=== PATIENT | male | born 1950 | race Caucasian/White ===

== ENCOUNTER 2019-11-26 00:58 | Inpatient (IN) | payer OTHER, BC ==
--- OUTSIDE RECORDS SUMMARY | 2019-11-26 01:01 | XMS REPORT | Continuity of Care Document ---
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, systemic arterial (disorder) Renal mass Active Problem 02/02/2017 [facility] (finding) Myocardial Resolved Problem 02/02/2017 [facility] infarction (disorder) 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 (Same as: Tylenol Extra Strength) heparin Notes: porcine Inactive heparin 2016 24 HR Metoprolol Notes: (Same Inactive H Tartrate 50 MG as: Toprol XL) 2016 [place] Extended Release May split Tablet [Toprol] tab, but do not crush. Lisinopril Notes: (Same Inactive as: Prinivil, 2016 Zestril) Hydroxychloroquine Notes: (Same Inactive Sulfate 200 MG as: Plaquenil) 2016 [place] Oral Tablet Hydroxychloroq uine sulfate 200 mg = 155 mg hydroxychloroq uine base. If treating malaria, verify dose as salt vs. base per CDC guideline atorvastatin Notes: (Same Inactive as: Lipitor) 2016 aspirin 81 mg Notes: Do not Inactive tablet, enteric crush or chew. 2017 [place] coated (Same As: Ecotrin) sennosides, SKILLED NURSING Notes: (Same Inactive as: Senokot) 2016 [facility] Prednisone Notes: Take Inactive with food. 2016 [facility] tamsulosin Notes: (Same Inactive As: Flomax) 2016 [facility] "Do Not Crush" Cefazolin Notes: Same Inactive as: Ancef 2016 [facility] Albuterol 0.83 2.49 mg, Inactive MG/ML Inhalant Route: NEB, 2017 [place] Solution Q20Min, Dosing Weight 106.165, kg, PRN Wheezing, Priority: STAT, Start date: 01/29/17 21:17:00 CDT, Duration: 30 day, Stop date: 02/28/17 21:16:00 CDT Diphenhydramine 12.5 mg, Inactive Route: IVP, 2016 [facility] Drug form: INJ, Q6H, Dosing Weight 106.165, kg, PRN Itching, Start date: 01/29/17 21:17:00 CDT, Duration: 30 day, Stop date: 02/28/17 21:16:00 CDT Naloxone 0.4 mg, Route: Inactive IVP, Q2MIN, 2016 [facility] Dosing Weight 106.165, kg, PRN Narcotic Reversal, Start date: 01/29/17 21:17:00 CDT, Duration: 8 doses or times, Stop date: Limited # of times Meperidine 12.5 mg, Inactive Route: IVP, 2016 [facility] Q30Min, Dosing Weight 106.165, kg, PRN Other -See Comment, For shivering, Start date: 01/29/17 21:17:00 CDT, Duration: 2 doses or times, Stop date: Limited # of times Ondansetron 4 mg, Route: Inactive IVP, ONCE, 2016 [facility] Dosing Weight 106.165, kg, PRN Nausea & Vomiting, Start date: 01/29/17 21:17:00 CDT Promethazine 6.25 mg, Inactive Route: IVPB, 2016 [facility] ONCE, Dosing Weight 106.165, kg, PRN Nausea & Vomiting, Start date: 01/29/17 21:17:00 CDT Flumazenil 0.2 mg, Route: Inactive IVP, PRN, 2016 [facility] Dosing Weight 106.165, kg, PRN Benzodiazepine Reversal, Initial dose, Start date: 01/29/17 21:17:00 CDT, Duration: 30 day, Stop date: 02/28/17 21:16:00 CDT Hydromorphone 0.5 mg, Route: Inactive 01/30[facility] IVP, Q5Min, 2016 [facility] Dosing Weight 106.165, kg, PRN Pain Score 7-10, Start date: 01/29/17 21:17:00 CDT, Duration: 4 doses or times, Stop date: Limited # of times Oxycodone 5 mg, Route: Inactive 01/30[facility] PO, Drug form: 2016 [facility] TAB, Q4H, Dosing Weight 106.165, kg, PRN Pain Score 4-6, Start date: 01/29/17 21:17:00 CDT, Duration: 30 day, Stop date: 02/28/17 21:16:00 CDT Acetaminophen 1,000 mg, Inactive Route: PO, 2016 [facility] Drug form: TAB, ONCE, Dosing Weight 106.165, kg, PRN Pain Score 1-3, Start date: 01/29/17 21:17:00 CDT, Duration: 1 doses or times, Stop date: Limited # of times esmolol 10 mg, Route: Inactive 01/30[facility] IVP, Q5Min, 2016 [facility] Dosing Weight 106.165, kg, PRN Other -See Comment, Start date: 01/29/17 21:17:00 CDT, Duration: 5 doses or times, Stop date: Limited # of times Labetalol 10 mg, Route: Inactive IVP, Q5Min, 2016 [facility] Dosing Weight 106.165, kg, PRN Elevated BP, Start date: 01/29/17 21:17:00 CDT, Duration: 5 doses or times, Stop date: Limited # of times Hydralazine 10 mg, Route: Inactive 01/30[facility] IVP, Q20Min, 2016 [facility] Dosing Weight 106.165, kg, PRN Elevated BP, Start date: 01/29/17 21:17:00 CDT, Duration: 2 doses or times, Stop date: Limited # of times Calcium Chloride 1,000 mL, Inactive 0.0014 MEQ/ML / Rate: 125 [address] [place] Potassium Chloride ml/hr, Infuse 0.004 MEQ/ML / over: 8 hr, Sodium Chloride Route: IV, 0.103 MEQ/ML / Dosing Weight Sodium Lactate 106.165 kg, 0.028 MEQ/ML Total Volume: Injectable 1,000, Start Solution date: 01/29/17 21:17:00 CDT, Duration: 30 day, Stop date: 02/28/17 21:16:00 CDT hydromorphone Route: IV, Inactive (ANES) Drug form: 2016 [facility] INJ, ONCE, Stop date: 01/29/17 21:06:00 CDT neostigmine (ANES) Route: IV, Inactive 01/30/ M H Drug form: 2016 [facility] INJ, ONCE, Stop date: 01/29/17 21:06:00 CDT glycopyrrolate Route: IV, Inactive (ANES) Drug form: 2016 [facility] INJ, ONCE, Stop date: 01/29/17 21:06:00 CDT ondansetron (ANES) Route: IV, Inactive 01/30/ M H Drug form: 2016 [facility] INJ, ONCE, Stop date: 01/29/17 20:59:00 CDT ceFAZolin (ANES) Route: IV, Inactive Drug form: 2016 [facility] INJ, ONCE, Stop date: 01/29/17 20:44:00 CDT mannitol 25% Route: IV, Inactive intravenous Drug form: 2016 [facility] solution (ANES) INJ, ONCE, Stop date: 01/29/17 19:54:00 CDT phenylephrine Route: IV, Inactive (ANES) Drug form: 2016 [facility] INJ, ONCE, Stop date: 01/29/17 19:03:00 CDT Hextend (ANES) Route: IV, Inactive (ANES) Drug Form: 2016 [facility] INJ, Start date: 01/29/17 18:46:00 CDT, Stop date: 01/29/17 19:46:00 CDT ceFAZolin (ANES) Route: IV, Inactive (ANES) Drug form: 2016 [facility] INJ, Start date: 01/29/17 17:14:00 CDT, Stop date: 01/29/17 18:14:00 CDT Docusate Notes: (Same No Longer as: Colace) Active 2016 [facility] (Do Not Crush) rocuronium (ANES) Route: IV, Inactive Drug form: 2016 [facility] INJ, ONCE, Stop date: 01/29/17 16:53:00 CDT fentaNYL (ANES) Route: IV, Inactive Drug form: 2016 [facility] INJ, ONCE, Stop date: 01/29/17 16:33:00 CDT ceFAZolin (ANES) Route: IV, Inactive Drug form: 2016 [facility] INJ, ONCE, Stop date: 01/29/17 15:23:00 CDT acetaminophen Route: IV, Inactive (ANES) (ANES) Drug form: 2016 [facility] INJ, Start date: 01/29/17 15:22:00 CDT, Stop date: 01/29/17 16:22:00 CDT propofol (ANES) Route: IV, Inactive Drug form: 2016 [facility] INJ, ONCE, Stop date: 01/29/17 15:07:00 CDT lidocaine (ANES) Route: IV, Inactive Drug form: 2016 [facility] INJ, ONCE, Stop date: 01/29/17 15:07:00 CDT fentaNYL (ANES) Route: IV, Inactive Drug form: 2016 [facility] INJ, ONCE, Stop date: 01/29/17 15:07:00 CDT rocuronium (ANES) Route: IV, Inactive Drug form: 2016 [facility] INJ, ONCE, Stop date: 01/29/17 15:07:00 CDT midazolam (ANES) Route: IV, Inactive Drug form: 2016 [facility] SOLN, ONCE, Stop date: 01/29/17 14:47:00 CDT sodium chloride Route: IV, Inactive 0.9% 1000 ml INJ Total Volume: 2016 [place] (ANES) 1,000, Start date: 01/29/17 14:01:00 CDT, Stop date: 01/29/17 15:01:00 CDT LR 1000 mL INJ Route: IV, Inactive (ANES) Total Volume: 2016 [facility] 1,000, Start date: 01/29/17 13:53:00 CDT, Stop date: 01/29/17 14:53:00 CDT gabapentin 300 MG Notes: (Same No Longer Oral Capsule as: Neurontin) Active 2016 [place] Acetaminophen 10 Notes: Infuse No Longer MG/ML Injectable over 15 Active [address] [facility] [address] Solution minutes Do not exceed 4gm/day of acetaminophen MEDICATION WASTE Product Size: 1000 mg Product Wasted: ___ mg Insulin regular 6 unit, Route: Inactive IV, ONCE, 2016 [facility] Dosing Weight 106.165, kg, Start date: 01/29/17 11:51:00 CDT, Stop date: 01/29/17 11:51:00 CDT Insulin, Aspart, Notes: Roll in No Longer Human palms of hands Active 2016 [facility] gently; Do not shake vigorously. (Same as: NovoLOG) "single patient use only" WASTE: F/P - Black; E - Municipal Trash Bin Stable for 28 days at room temperature. Expires in days from Date Dextrose 50% 12.5 gm, 25 No Longer Syringe mL, Route: Active 2016 [facility] IVP, Drug Form: INJ, Dosing Weight 106.165, kg, PRN, PRN Blood Glucose Results, Start date: 01/29/17 11:43:00 CDT, Duration: 30 day, Stop date: 02/28/17 11:42:00 CDT Glucagon 1 mg, Route: No Longer IM, Drug form: Active 2016 [facility] PDR/INJ, PRN, Dosing Weight 106.165, kg, PRN Blood Glucose Results, Start date: 01/29/17 11:43:00 CDT, Duration: 30 day, Stop date: 02/28/17 11:42:00 CDT Hydralazine Notes: (Same No Longer as: Active 2016 [facility] Apresoline) Push over 5 minutes D5NS 1,000 mL 1,000 mL, No Longer Rate: 100 Active 2016 [facility] ml/hr, Infuse over: 10 hr, Route: IV, Dosing Weight 106.165 kg, Total Volume: 1,000, Start date: 01/29/17 11:39:00 CDT, Duration: 30 day, Stop date: 02/28/17 11:38:00 CDT Ondansetron Notes: (Same No Longer as: Zofran) Active 2016 [facility] MEDICATION WASTE Product Size: 4 mg Product Wasted: ___ mg tramadol Notes: Not to No Longer hydrochloride 50 exceed Active [facility] Oral Tablet 400mg/day. (Same As: Ultram) Dilaudid 0.5 mg, 0.5 No Longer mL, Route: Active 2016 [facility] IVP, Drug form: INJ, Q4H, Dosing Weight 106.165, kg, PRN Pain Score 7-10, Start date: 01/29/17 11:39:00 CDT, Duration: 30 day, Stop date: 02/28/17 11:38:00 CDT Dilaudid 0.5 mg, Route: Inactive IVP, Q4H, 2016 Dosing Weight 106.165, kg, PRN Pain Score 7-10, Start date: 01/29/17 11:38:00 CDT, Duration: 30 day, Stop date: 02/28/17 11:37:00 CDT Albuterol 0.833 3 mL, Route: Inactive MG/ML / NEB, Dosing 2016 [facility] Ipratropium Weight [place] 0.167 106.165, kg, MG/ML Inhalant ONCE, STAT, Solution Start date: 01/29/17 11:22:00 CDT, Stop date: 01/29/17 11:22:00 CDT Calcium Chloride 1,000 mL, Inactive 0.0014 MEQ/ML / Rate: [address] Potassium Chloride ml/hr, Infuse 0.004 MEQ/ML / over: 40 hr, Sodium Chloride Route: IV, 0.103 MEQ/ML / Dosing Weight Sodium Lactate 106.165 kg, 0.028 MEQ/ML Total Volume: Injectable 1,000, Start Solution date: 01/29/17 11:22:00 CDT, Duration: 30 day, Stop date: 02/28/17 11:21:00 CDT Mannitol Notes: (Same No Longer as: Osmitrol) Active 2016 [facility] Infuse through 5 micron or smaller filter WASTE: F/P - Sink; E - Municipal Trash Bin aspirin 81 mg 81 mg = 1 tab, Active tablet, enteric PO, Daily, # 2017 [facility] coated 90 tab, 3 Refill(s) tamsulosin 0.4 mg 0.4 mg = 1 Active oral capsule cap, PO, 2016 Daily, 0 Refill(s) Vitamin B Complex 1 tab, PO, Active oral tablet Daily, 0 2017 Refill(s) Vitamin D2 See Active Instructions, 2017 [facility] PO, 0 Refill(s) gabapentin 300 MG 300 mg = 1 Active Oral Capsule cap, PO, TID, 2017 [facility] 0 Refill(s) predniSONE 2.5 mg 2.5 mg = 1 Active oral tablet tab, PO, 2017 Daily, 0 Refill(s) NovoLIN 70/30 See Active Instructions, 2016 SUB-Q, 0 Refill(s) atorvastatin 80 mg 80 mg = 1 tab, Active oral tablet PO, Daily, [address] [facility] [address] Refill(s) canagliflozin 150 See Active MG / Metformin Instructions, 2017 [facility] hydrochloride 1000 1 tab PO, 0 MG Oral Tablet Refill(s) [Invokamet] metoprolol 50 mg 50 mg = 1 tab, Active oral tablet, PO, Daily, # 2017 [facility] ast extended release 30 tab, 0 Refill(s) Hydroxychloroquine 200 mg = 1 Active Sulfate 200 MG tab, PO, 2017 [facility] t Oral Tablet Daily, 0 Refill(s) clopidogrel 75 mg 75 mg = 1 tab, Active oral tablet PO, Daily, # [address] [facility] tab, 0 Refill(s) lisinopril 40 mg 40 mg = 1 tab, Active oral tablet PO, Daily, # [address] 30 tab, 0 Refill(s) Allergies, Adverse Reactions, Alerts Substance Category Reaction Severity Reaction Status Date Comments S ource type Reported penicillins Assertion Drug Active allergy [facility] t Immunizations No Data Provided for This Section Results Order Name Results Value Reference Date Interpretation Comments [facility] rce Range ELECTROLYT AGAP 11.6 10.0 - 01/30 ES 20.0 [facility] ELECTROLYT eGFR 51 01/30 Result Comment: The [facility] eGFR is calculated using the CKD-EPI formula. In most young, healthy individuals the eGFR will be >90 mL/min/1.73m2 . The eGFR declines with age. An eGFR of 60-89 may be normal in some populations, particularly the elderly, for whom the CKD-EPI formula has not been extensively validated. Use of the eGFR is not recommended in the following populations:< br/>
Maria Ines viduals with unstable creatinine concentration s, including patients and those with serious co-morbid conditions.<b r/>
Patie nts with extremes in muscle mass or diet.

The data above are obtained from the National Kidney Disease Education Program (NKDEP) which additionally recommends that when the eGFR is used in patients with extremes of body mass index for purposes of drug dosing, the eGFR should be multiplied by the estimated BMI. ELECTROLYT CO2 26 24 - 32 01/30 [facility] ELECTROLYT Calcium Lvl 7.9 8.5 - 10.5 01/30 [facility] ELECTROLYT Glucose Lvl 235 70 - 99 01/30 [facility] ELECTROLYT Sodium Lvl 139 135 - 145 01/30 [facility] ELECTROLYT Potassium 4.6 3.5 - 5.1 01/30 ES Lvl /2016 [facility] ELECTROLYT BUN 26 7 - 22 01/30 [facility] ELECTROLYT Creatinine 1.40 0.50 - 01/30 ES Lvl 1.40 [facility] ELECTROLYT Chloride Lvl 106 95 - 109 01/30 [facility] HEMATOLOGY Monocytes # 0.5 0.0 - 0.8 01/30 [facility] HEMATOLOGY Basophils 0.5 0.0 - 1.0 01/30 [facility] HEMATOLOGY Lymphocytes 0.6 1.0 - 5.5 01/30 MH # /2017 [facility] HEMATOLOGY Segs-Bands # 4.9 1.5 - 8.1 01/30 /2016 [facility] HEMATOLOGY Monocytes 8.5 2.0 - 12.0 01/30 /2016 [facility] HEMATOLOGY Lymphocytes 9.4 20.0 - 01/30 MH 40.0 /2016 [facility] HEMATOLOGY Segs 81.5 45.0 - 01/30 MH 75.0 /2016 [facility] HEMATOLOGY Eosinophils 0.1 0.0 - 4.0 01/30 /2016 [facility] MPV 8.2 7.4 - 10.4 01/30 /2016 [facility] Platelet 143 133 - 450 01/30 /2016 [facility] RDW 15.0 11.5 - 01/30 MH 14.5 /2016 [facility] MCHC 32.9 32.0 - 01/30 MH 36.0 /2016 [facility] MCH 29.3 27.0 - 01/30 MH 31.0 [facility] Hct 42.7 42.0 - 01/30 MH 54.0 [facility] MCV 89.1 80.0 - 01/30 MH 94.0 [facility] RBC 4.79 4.70 - 01/30 MH 6.10 /2016 [facility] Hgb 14.0 14.0 - 01/30 MH 18.0 /2016 [facility] WBC 6.0 3.7 - 10.4 01/30 /2016 [facility] PTT 23.4 22.9 - 01/30 MH 35.8 [facility] BLOOD BANK RBC product Product available 1 01/29 Resul t RESULTS (01/29/17 11:41 AM) /2016 Comment: [place] 01/29/2017 11:42 [id number]
notified Bianka blood is ready for picker and packer BLOOD BANK ABO/Rh A POS 01/21 RESULTS /2016 [facility] BLOOD BANK Antibody Negative 01/21 RESULTS Scrn (01/21/17 2:48 PM) /2016 [facility] ast ELECTROLYT AGAP 10.7 10.0 - 01/21 ES 20.0 [place] ELECTROLYT eGFR 77 01/21 Result ES /2016 Comment: The [facility] eGFR is calculated using the CKD-EPI formula. In most young, healthy individuals the eGFR will be >90 mL/min/1.73m2 . The eGFR declines with age. An eGFR of 60-89 may be normal in some populations, particularly the elderly, for whom the CKD-EPI formula has not been extensively validated. Use of the eGFR is not recommended in the following populations:< br/>
Maria Ines viduals with unstable creatinine concentration s, including patients and those with serious co-morbid conditions.<b r/>
Patie nts with extremes in muscle mass or diet.

The data above are obtained from the National Kidney Disease Education Program (NKDEP) which additionally recommends that when the eGFR is used in patients with extremes of body mass index for purposes of drug dosing, the eGFR should be multiplied by the estimated BMI. ELECTROLYT Calcium Lvl 8.9 8.5 - 10.5 01/21 [facility] ELECTROLYT BUN 26 7 - 22 01/21 [facility] ELECTROLYT Glucose Lvl 106 70 - 99 01/21 [facility] ELECTROLYT Potassium 4.7 3.5 - 5.1 01/21 ES Lvl /2016 [facility] ELECTROLYT Sodium Lvl 140 135 - 145 01/21 [facility] ELECTROLYT Creatinine 1.00 0.50 - 01/21 ES Lvl 1.40 /2016 [facility] ELECTROLYT CO2 26 24 - 32 01/21 [facility] ELECTROLYT Chloride Lvl 108 95 - 109 01/21 [facility] HEMATOLOGY Hgb 15.5 14.0 - 01/21 MH 18.0 [facility] HEMATOLOGY RBC 5.22 4.70 - 01/21 MH 6.10 [facility] HEMATOLOGY Hct 45.5 42.0 - 01/21 MH 54.0 [facility] HEMATOLOGY MCV 87.3 80.0 - 01/21 MH 94.0 [facility] HEMATOLOGY MCH 29.6 27.0 - 01/21 MH 31.0 /2016 [facility] HEMATOLOGY MCHC 34.0 32.0 - 01/21 MH 36.0 [facility] HEMATOLOGY RDW 15.0 11.5 - 01/21 MH 14.5 [facility] HEMATOLOGY Platelet 177 133 - 450 01/21 [facility] HEMATOLOGY MPV 7.9 7.4 - 10.4 01/21 [facility] HEMATOLOGY WBC 6.6 3.7 - 10.4 01/21 [facility] HEMATOLOGY INR 0.84 0.85 - 01/21 MH 1.17 /2016 [facility] HEMATOLOGY PT 11.7 12.0 - 07/ MH 14.7 /2017 [facility] HEMATOLOGY PTT 22.6 22.9 - 07 MH 35.8 /2017 [facility] HEMATOLOGY Eosinophils 0.1 0.0 - 0.5 07/ MH # /2017 [facility] HEMATOLOGY Basophils # 0.1 0.0 - 0.2 07/ MH /2016 [facility] HEMATOLOGY Eosinophils 1.8 0.0 - 4.0 07/ MH /2016 [facility] HEMATOLOGY Segs-Bands # 4.8 1.5 - 8.1 / MH /2016 [facility] HEMATOLOGY Basophils 0.9 0.0 - 1.0 07/ MH /2016 [facility] HEMATOLOGY Lymphocytes 1.1 1.0 - 5.5 07/ MH # /2017 [facility] HEMATOLOGY Monocytes # 0.5 0.0 - 0.8 / MH /2016 [facility] HEMATOLOGY Segs 73.2 45.0 - 01/21 MH 75.0 /2016 [facility] HEMATOLOGY Monocytes 7.7 2.0 - 12.0 01/21 MH /2016 [facility] HEMATOLOGY Lymphocytes 16.4 20.0 - 01/21 MH 40.0 /2017 [facility] URINE AND UA <=1.0 0.1 - 1.0 01/21 STOOL Urobilinogen mg/dL /2016 [facility] URINE AND UA Sq Epi None Seen 01/21 STOOL /2016 [facility] URINE AND UA Blood Negative Negative 01/21 STOOL (01/21/17 2:48 PM) /[address] [place] [facility] URINE AND UA Color [place] 01/21 STOOL /2016 [facility] URINE AND UA Glucose 500 mg/dL Negative 01/21 [facility]OOL mg/dL /2016 [facility] URINE AND UA Ketones Negative Negative 01/21 [facility] mg/dL mg/dL /2016 [facility] URINE AND UA Bili Negative Negative 01/21 STOOL *NA* /2016 [facility] (01/21/17 2:48 PM) URINE AND UA pH 5.0 5.0 - 8.0 01/21 STOOL /2016 [facility] URINE AND UA Protein Negative Negative 01/21 STOOL mg/dL mg/dL /2016 [facility] URINE AND UA WBC <1 0 - 5 01/21 STOOL /2016 [facility] URINE AND UA Nitrite Negative Negative 01/21 STOOL (01/21/17 2:48 PM) /[place] URINE AND UA Leuk Est Negative Negative 01/21 STO[facility] (01/21/17 2:48 PM) /[address] [place] URINE AND UA RBC 2 0 - 2 01/21 [facility] URINE AND UA Spec Grav 1.023 <=1.030 01/21 [facility]OOL [facility] URINE AND UA Turbidity Marked Clear 01/21 STOOL *ABN* /2016 [facility] (01/21/17 2:48 PM) Pathology Reports No Data Provided for This Section Diagnostic Reports Report Value Date Source Chest 2 views DX Patient Name: CLARENCE GAYLE 01/21/2017 H [facility] : 1950; Age: 67 years Male MR: [id number] Study: Chest 2 views DX Order Time: 01/21/2017 2 :18 PM CDT CLINICAL INDICATION: Coughing - preop exam COMPARISON: None FINDINGS: Lines: None. Lungs: Linear atelectasis at the left lung base. No effusion, pneumothorax, focal consolidation. Mediastinum: The cardiac [place] is within normal limits of size. Midline trachea. Bones and soft tissues: No acute abnormalities. IMPRESSION: No acute cardiopulmonary abnormalities. SL: [id number] Abdomen w/wo IV PROCEDURE: ABDOMEN CT 12/01/2016 [facility] [place] [address] CLINICAL INDICATION: D41.01, N20.0, N41.0. COMPARISON: None. TECHNIQUE: Unenhanced and en hanced axial helical CT images of the abdomen were performed. Postcontrast images were performed with intravenous and oral contrast. Postcontrast coronal and sagittal reforma tted images are available. I ntravenous contrast: 100 cc of Omnipaque.DLP: 1862.16 mGy-cm. FINDINGS: LOWER CHEST: There is mild e levation of the right diaphragm. There is dependent subsegmental atelectasis in both lower lobes. There is a 9 x 3 mm indeterminate noncalcified nodular density in the right middle lobe (image 1 series 5). The heart size is normal. There are coronary artery calcifications. ORGANS: There is an approxim ately 2.8 x 3.3 x 3 cm enhancing cortical mass in the anterior aspect of the mid to upper pole of the right kidney most concerning for renal cell carcinoma. There is a 4 mm c alculus in the mid to lower pole collecting system of the right kidney with a Hounsfield unit measurement of approximately 533. There are mild arterial vascular calcifications in both intrarenal collect ing systems. A 2 mm calcific ation in the upper pole collecting system of the left kidney may be vascular or represent a renal calculus. There is nonspecific stranding of the bilateral perinephric fat. There is no hydronephrosis. There is a 1 cm calcificatio n adjacent to the posterior margin of the left hepatic lobe and a subcentimeter calcification adjacent to the medial margin of the right hepatic lobe. The liver is otherwise unremarkable. The pancreas i s mildly atrophic with partial fatty infiltration in the pancreatic head without additional demonstrable pancreatic abnormality. There is no demonstrable abnormality of the gallbladder, spleen or adrenal glands. BOWEL: There is a nonobstruc tive bowel gas pattern. The gastric fundus is poorly distended limiting evaluation of the gastric wall. There is diverticulosis of the descending colon and visualized sigmoid colon without demonstrable acute diverticulitis. There is no additional demonstrable bowel abnormality. The appendix is normal. PERITONEUM: There is no free intraperitoneal air or ascites. RETROPERITONEUM: There are a ortoiliac, splenic artery and renal artery calcifications with mural thrombus in the wall of the abdominal aorta. Mild stenosis is suspected at the origin of the celiac axis. The caliber of the abdomina l aorta is within normal limits. There is no demonstrable tumoral thrombus in the right renal vein or inferior vena cava. There is no pathologic retroperitoneal lymphadenopathy. MUSCULOSKELETAL: There is no significant abnormality of the subcutaneous soft tissues. There are degenerative changes of the spine and visualized bilateral sacroiliac joints. A 1.1 cm sclerotic lesion i n the marrow of L4 is likely a benign bone islan d. IMPRESSION: 1. There is a 3.3 cm enhanci ng right renal cortical mass most concerning for a renal cell carcinoma. 2. There is a 4 mm right sandy al calculus and a tiny left renal calculus versus a vascular calcification. No hydronephrosis. 3. Colonic diverticulosis. 4. 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 Mild stenosis is suspected at the origin of the celiac axis. This would be better assessed with an abdomen CTA. 5. Degenerative changes of the spine and sacroil iac joints. 6. There is a 9 x 3 mm indet erminate noncalcified nodular density in the right middle lobe. An unenhanced chest CT is suggested to evaluate the remainder of the lungs. SL: 16 Consultation Notes No Data Provided for This Section Discharge Summaries No Data Provided for This Section History and Physicals No Data Provided for This Section Vital Signs Vital Sign Value Date Comments Source Heart Rate 91 01/30/2017 [facility] Temperature Oral (F) 97.6 F 01/30/2017 [facility] Systolic (mm Hg) 128 01/30/2017 [facility] Diastolic (mm Hg) 73 01/30/[address] [address] Respitory Rate 17 01/30/2017 [facility] Temperature Oral (F) 98.3 F 01/30/2017 [facility] Heart Rate 94 01/30/2017 [facility] Rate 17 01/30/2017 [facility] Systolic (mm Hg) 159 01/30/2017 [facility] Diastolic (mm Hg) 86 01/30/[address] [facility] [address] Systolic (mm Hg) 164 01/30/2017 [facility] Diastolic (mm Hg) 87 01/30/[address] Heart Rate 96 01/30/2017 [facility] Respitory Rate 17 01/30/2017 [facility] Temperature Oral (F) 97.7 F 01/30/2017 [facility] BMI Calculated 31.74 01/21/2017 [facility] Weight 106.165 01/21/2017 [facility] Height 182.88 cm 01/21/2017 [facility] Encounters Location Location Encounter Encounter Reason Attending ADM DC Stat us Source Details Type Number For Provider Date Date Visit [facility] Outpt Diag [id number] Honorio 12/01 12/02 [facility] Observation [id number] Honorio 01/30 01/30 [facility] 0 [facility] Procedures Procedure Code Date Perfomer Comments Source Fusion [id number] [facility] Operation [id number] [facility] Stent placement [id number] [facility] ast Assessment and Plan Assessment and Plan Date Source Extracted from:Title: Clinical Document 01/30/2017 [facility] Author: Santino Gage MD Date: 01/30/17 NEUROLOGY consult note [facility] Completed: Jan, 15:49 by Santino Gage MD RM: 322 - 1D, SE C3BW FAST, CLARENCE D 67y (: 1950) M Attending: Honorio Latham MD Service: Urology Reason for Admission: RENAL MASS Working DRG: None Documented Code status: None Specified=FULL CODE Current diet: Isolation: None Documented Allergies: penicillins Chief Complaits Left leg numbness. HPI This is a 67-year-old right-handed very pleasant gentleman who has past medical history of hypertension,, type 2 diabetes who was recently admitted to the hospital for elective right nephrectomy and the re was a right kidney mass was found and was concerned about renal cell carcinoma. Apparently patient underwent the procedure yesterday which was prolonged procedure. As patient was in left lateral po sition throughout the procedure and lauryn use of right nephrectomy subsequent in the morning 2:00 when he tried to get up he felt quite normal in the left leg and could not walk since then he has been wal sammi with a walker support for 4 times a nd feels it is getting better in regards to the numbness he feels that it is in the left lateral aspect of the thigh of the left leg he denies any weakness he den ies any low back pain denies any radicul ar pain denies any bowel or bladder dysfunction. Neurology was consulted based on this numbness concern. PMH 1 hypertension. 2. Type 2 diabetes. 3. Right renal mass. PSH 1 right nephrectomy. Review of system. As above otherwise unremarkable. SOCIAL HISTORY Family history of smoking, alcohol or dr ug use and lives with family actually was present in the room. FAMILY HISTORY Noncontributory. On examination HEENT supple no JVD no bruit noted no lymphadenopathy noted RS clear to auscultation bilaterally CVS S1-S2 present no murmur or click noted Abdomen soft nontender positive bowel sounds Extremity good peripheral pulses. Neuro exam. Mental status exam. Alert awake oriented 3. Speech fluent naming repetition is intac t follows three-step commands no apraxia or was noted Cranial no pupil 3-2 mm reacting to ligh t bilaterally extraocular movements are intact no nystagmus noted with a noted no facial asymmetry noted tongue uvula midline hearing grossly intact. Motor exam Normal tone and bulk strength is 5/5 in all 4 extremity including left lower extremity. Sensory exam decreased light touch pinpr ick in lower extremity up to mid robertson also he has a decreased light touch and pinprick in the left anterolateral thigh region. Coordination [id number] is intact. Gait not tested. Deep tendon reflexes 10 ankle. 24hr Labs 01/30 1223 Glucose POC 271 H 01/30 0755 Glucose POC 219 H 01/30 0440 Glucose Lvl 235 H BUN 26 H Creatinine Lvl 1.40 Sodium Lvl 139 Potassium Lvl 4.6 Chloride Lvl 106 CO2 26 AGAP 11.6 Calcium Lvl 7.9 L eGFR 51 WBC 6.0 RBC 4.79 Hgb 14.0 Hct 42.7 MCV 89.1 MCH 29.3 MCHC 32.9 RDW 15.0 H Platelet 143 MPV 8.2 Segs 81.5 H Monocytes 8.5 Lymphocytes 9.4 L Eosinophils 0.1 Basophils 0.5 Segs-Bands # 4.9 Lymphocytes # 0.6 L Monocytes # 0.5 PTT 23.4 01/30 2116 Glucose POC 222 H 01/29 1901 Glucose POC 214 H Trevino still necessary (Yes/No): Line still robinsones kay (Yes/No): Vitals Tmp(F) Pulse BP RR SpO2 FIO2 01/30 11:45 98.3 94 159/86 17 93 --- 01/30 07:48 97.7 96 164/87 17 93 --- 01/30 04:10 98.3 89 145/71 16 92 --- 01/30 02:46 ---- 88 161/70 16 --- --- 01/30 01:36 ---- 86 132/63 16 92 --- 24 Hr Tmax: 99.2F (37.33c) at 01/29 21:1 0 Vital Signs are the last 5 in the past 48 hours. Date Wt(kg) Wt(lb) Ht(cm) Ht(in) Method 01/21 (initial) 106.17 233.56 Measured 01/21 182.88 72.00 Stated I&O Record In Out Bal 01/30 24hr Tot 1900 950 950 01/29 24hr Tot 4754 1450 7002 Medications (49) Active Scheduled Meds (14): 01/30/17 acetaminophen 1,000 mg PO Q6H 01/30/17 aspirin (aspirin 81 mg tablet, enteric coated) 81 m g PO Daily 01/30/17 atorvastatin 80 mg PO Daily 01/30/17 ceFAZolin (ceFAZolin (SCIP)) 2 gm IVPB ABXQ8H 200 m l/hr 01/29/17 docusate 100 mg PO BID 01/29/17 gabapentin (gabapentin 300 mg oral capsule) 300 mg PO TID 01/30/17 heparin 5,000 unit SUB-Q Q8Hnow 01/30/17 hydroxychloroquine (hydroxychlo roquine sulfate 200 mg oral tablet) 200 mg PO Daily 01/30/17 insulin detemir 8 unit SUB-Q Bedtime 0 ml/hr 01/30/17 lisinopril 40 mg PO Daily 01/30/17 metoprolol (Toprol-XL 50 mg ora l tablet, extended release) 50 mg PO Daily 01/30/17 predniSONE 2.5 mg PO Daily 01/30/17 senna 8.6 mg PO Daily 01/30/17 tamsulosin 0.4 mg PO Daily Unscheduled Meds: None PRN Meds (16): 01/29/17 Dextrose 50% in Water IV (Dextrose 50% Syringe) 12. 5 gm IVP PRN 01/29/17 Dextrose 50% in Water IV (Dextrose 50% Syringe) 25 gm IVP PRN 01/29/17 glucagon 1 mg IM PRN 01/29/17 hydrALAZINE 10 mg IVP Q4H 01/29/17 hydromorphone (Dilaudid) 0.5 mg IVP Q4H 01/29/17 insulin aspart 3 unit SUB-Q TID-Before Meals 01/29/17 insulin aspart 6 unit SUB-Q TID-Before Meals 01/29/17 insulin aspart 9 unit SUB-Q TID-Before Meals 01/29/17 insulin aspart 12 unit SUB-Q TID-Before Meals 01/29/17 insulin aspart 15 unit SUB-Q TID-Before Meals 01/29/17 insulin aspart 1 unit SUB-Q Bedtime 01/29/17 insulin aspart 2 unit SUB-Q Bedtime 01/29/17 insulin aspart 3 unit SUB-Q Bedtime 01/29/17 insulin aspart 4 unit SUB-Q Bedtime 01/29/17 ondansetron 4 mg IVP Q6H 01/29/17 tramadol (tramadol 50 mg oral tablet) 50 mg PO Q6H One Time Meds (18): 01/29/17 (Completed) Insulin regular 6 unit IV ONCE 01/29/17 (Discontinued) albuterol-iprat ropium (albuterol-ipratropium 2.5-0.5 mg inhalation solution) 3 mL NEB ONCE (Completed) ceFAZolin (ceFAZolin (ANES)) IV ONCE (Completed) ceFAZolin (ceFAZolin (ANES)) IV ONCE (Completed) fentaNYL (fentaNYL (ANES)) IV ONCE (Completed) fentaNYL (fentaNYL (ANES)) IV ONCE (Completed) glycopyrrolate (glycopyrrolate (ANES)) IV ONCE (Completed) hydromorphone (hydromorphone (ANES)) I V ONCE (Completed) lidocaine (lidocaine (ANES)) IV ONCE 01/29/17 (not done) mannitol 12.5 gm IV ONCE (Completed) mannitol (mannitol 25% intravenous solution (ANES)) IV ONCE (Completed) midazolam (midazolam (ANES)) IV ONCE (Completed) neostigmine (neostigmine (ANES)) IV ON CE (Completed) ondansetron (ondansetron (ANES)) IV ON CE (Completed) phenylephrine (phenylephrine (ANES)) I V ONCE (Completed) propofol (propofol (ANES)) IV ONCE (Completed) rocuronium (rocuronium (ANES)) IV ONCE (Completed) rocuronium (rocuronium (ANES)) IV ONCE Continuous Infusions (1): 01/29/17 D5NS 1,000 mL 1,000 mL 100 ml/hr ASSESSMENT 1. Patient has no leg in the anterolate ral thigh region most likely we are dealing with meralgia paresthetica which could be because of his position. The surgery already seems like he has been doing b elda than in the morning at present angelito e no further investigation needs to be done most likely this is a neuropraxia which should get better I have advised the patient that 4 weeks time will sit down i n the office and if needed investigation s like EMG/NCV and if the symptoms gets worse to come back to the emergency room and he is agreeable to it. 2. Hypertension. 3. Type 2 diabetes. 4. Renal cell carcinoma. PLAN 1. Had a long discussion with the lisa daugherty and his regarding the plan and they are agreeable to it. 2. As for his neurologist concern lisa daugherty can be discharged home discussed with Dr. Clancy. 3. Can DC home and will do outpatient workup if needed. Plan of Care No Data Provided for This Section Social History Social History Date Source Social History TypeResponse 01/29/2017 [facility] Smoking Status Current every day smoker; Type: eCigaret jose; Exposure to Tobacco Smoke self; Other Tobacco Frequency eCig; Cigarette Smoking Last 365 Days Yes; Reg Smoking Cessation Counseling No No data available for this 12/02/2016 [facility] and section Family History No Data Provided for This Section Advance Directives No Data Provided for This Section Functional Status No Data Provided for This Section
[2019-11-26] MEDS ORDERED: NA CHLORIDE 0.9% 1,000 ML ONE (01:17)
[2019-11-26 01:45] LABS: Protime INR 0.97
[2019-11-26 01:46] LABS: Absolute Lymphocytes (CBC) 1.3 K/uL (0.7-4.9); Basophils % 0.8 % (0-1.3); Hematocrit 46.8 % (39.6-49.0); Lymphocytes % 17.1 % (15.3-44.8); MPV 8.8 fL (7.6-11.3); RBC Red Blood Cell Count 5.35 M/uL (4.33-5.43)
[2019-11-26 02:02] LABS: Albumin 3.7 g/dL (3.4-5.0); Bilirubin Direct 0.1 mg/dL (0-0.2); Bilirubin Total 0.5 mg/dL (0.2-1.0); Magnesium 1.7 mg/dL (1.8-2.4); Potassium 4.3 mmol/L (3.5-5.1); Troponin (Emerg Dept Use Only) 0.03 ng/mL (0.0-0.045)
[2019-11-26] MEDS ORDERED: FUROSEMIDE 20 MG/ 2ML VIAL ONE (02:30)
--- NOTE | 2019-11-26 02:44 | ER ---
Nurse's Notes [facility] Name: Keny Duke Age: 69 yrs Sex: Male : 1950 Arrival Date: 11/26/2019 Time: 01:00 Bed 3 Private MD: Diagnosis: Dyspnea;Type 2 diabetes mellitus;Hypomagnesemia;Abdominal tenderness;Diarrhea, unspecified;Unspecified diastolic (congestive) heart failure;Essential (primary) hypertension;Noninfective gastroenteritis and colitis, unspecified-hepatic flexure Presentation: 11/25 01:00 Chief complaint: EMS states: he has been feeling sick for couple of days now. started rv as bloated and diarrhea. Thursday morning, he woke up having shortness of breath especially when laying down. he is feeling weak. Denies cough and fever. Coronavirus screen: Surgical mask placed on patient. Patient moved to private room, placed in contact and droplet isolation with eye protection until further assessment. Patient denies a cough. Patient reports shortness of breath or difficulty breathing. Patient denies measured and/or subjective temperature greater than 100.4F prior to today's visit. Patient denies travel on a cruise ship or to a country the [facility] currently lists as an affected area. Patient denies contact with known and/or suspected case of COVID-19. Ebola Screen: No symptoms or risks identified at this time. Initial Sepsis Screen: Does the patient meet any 2 criteria? No. Patient's initial sepsis screen is negative. Does the patient have a suspected source of infection? No. Patient's initial sepsis screen is negative. Risk Assessment: Do you want to hurt yourself or someone else? Patient reports no desire to harm self or others. Onset of symptoms was November 25, 2019 at 08:00. 01:00 Method Of Arrival: EMS: [facility] rv 01:00 Acuity: GEOVANY 3 rv Triage Assessment: 01:05 General: Appears uncomfortable, Behavior is calm, cooperative. Pain: Complains of pain rv in right hip, and feet. EENT: No signs and/or symptoms were reported regarding the EENT system. Neuro: Level of Consciousness is awake, alert, obeys commands, Oriented to person, place, time, situation. Cardiovascular: Patient's skin is warm and dry. Rhythm is sinus rhythm with unifocal PVCs. Respiratory: Reports shortness of breath on exertion especially laying down Airway is patent Respiratory effort is even, unlabored, Respiratory pattern is regular, Breath sounds are clear bilaterally. Derm: Skin is intact. Historical: - Allergies: 01:05 PENICILLINS; rv - Home Meds: 01:05 atorvastatin 20 mg Oral tab 1 tab once daily [Active]; clopidogrel 75 mg Oral tab 1 tab rv once daily [Active]; gabapentin 300 mg Oral cap 1 cap four times a day [Active]; hydroxychloroquine 200 mg Oral tab 1 tab once daily [Active]; Invokamet 150-1,000 mg Oral tab 1 tab daily [Active]; Levaquin 500 mg Oral tab [Active]; lisinopril 20 mg Oral tab 1 tab once daily [Active]; metoprolol tartrate 25 mg Oral tab 1 tab once daily [Active]; oxybutynin chloride 5 mg Oral tab 1 tab 2 times per day [Active]; Novolin 70/30 [place] Sub-Q 40 units twice a day [Active]; phenazopyridine 200 mg Oral tab [Active]; prednisone 2.5 mg Oral tab once daily [Active]; - PMHx: 01:05 Diabetes - NIDDM; High Cholesterol; Hypertension; Myocardial infarction; rv - Immunization history:: Adult Immunizations up to date. - Social history:: Smoking status: Reported history of juuling and/or vaping. - Family history:: not pertinent. Screenin:07 Abuse screen: Denies threats or abuse. Denies injuries from another. Nutritional rv screening: No deficits noted. Tuberculosis screening: No symptoms or risk factors identified. Fall Risk None identified. Assessment: 01:00 General: Appears in no apparent distress. uncomfortable, Behavior is calm, cooperative, rr5 appropriate for age. Pain: Complains of pain in right pelvic Pain radiates to right leg Pain currently is 3 out of 10 on a pain scale. Quality of pain is described as aching, Pain began gradually, Is intermittent. Neuro: Level of Consciousness is awake, alert, obeys commands, Oriented to person, place, time, situation. Cardiovascular: Capillary refill < 3 seconds Patient's skin is warm and dry. Respiratory: Reports shortness of breath Airway is patent Respiratory effort is even, unlabored, Respiratory pattern is regular, symmetrical. GI: Abdomen is round distended, Reports lower abdominal pain, upper abdominal pain, diarrhea, nausea. : No signs and/or symptoms were reported regarding the genitourinary system. EENT: No signs and/or symptoms were reported regarding the EENT system. Derm: Skin is intact, is healthy with good turgor, Skin temperature is warm. 01:00 Musculoskeletal: Circulation, motion, and sensation intact. Capillary refill < 3 rr5 seconds, Reports pain in right leg. 02:30 Reassessment: patient having Shortness of breath. ED provider with order made and rr5 carried out. 02:51 Reassessment: Patient appears in no apparent distress at this time. send to CT angio rr5 per stretcher assisted by CT staff. 03:03 Reassessment: jade duke (son) [phone] updated for the plan of care. rr5 03:10 Reassessment: Patient appears in no apparent distress at this time. Patient is alert, rr5 oriented x 3, equal unlabored respirations, skin warm/dry/pink. complaints of right pelvic and abdominal pain. ED provider informed with order made and carried out. 04:03 Reassessment: Patient appears in no apparent distress at this time. Patient is alert, rr5 oriented x 3, equal unlabored respirations, skin warm/dry/pink. Patient states feeling better. Patient states symptoms have improved. 04:14 Reassessment: Patient appears in no apparent distress at this time. Patient is alert, rr5 oriented x 3, equal unlabored respirations, skin warm/dry/pink. medications ciprofloxacin and Flagyl send to 4th floor staff nurse informed still ongoing magnesium drip. Patient states symptoms have improved. Vital Signs: 01:00 BP 162 / 103; Pulse 76; Resp 19; Temp 98.5; Pulse Ox 97% on R/A; Weight 106.59 kg; rv Height 6 ft. (182.88 cm); Pain 3/10; 02:00 BP 145 / 85; Pulse 70; Resp 24; Pulse Ox 99% ; rr5 02:53 BP 155 / 96; Pulse 84; Resp 27; Pulse Ox 98% ; rr5 03:10 BP 162 / 115; Pulse 80; Resp 25; Pulse Ox 95% ; rr5 03:35 BP 161 / 110; Pulse 86; Resp 25; Pulse Ox 96% on 3 lpm NC; rr5 04:03 BP 133 / 80; Pulse 87; Resp 22; Temp 97.2; Pulse Ox 99% on 3 lpm NC; rr5 01:00 Body Mass Index 31.87 (106.59 kg, 182.88 cm) rv 03:35 complaining of SOB, rr5 ED Course: 01:00 Patient arrived in ED. rv 01:01 Adriel Curiel MD is Attending Physician. genesis 01:04 Triage completed. rv 01:07 Arm band placed on Patient placed in the treatment room, on a stretcher, Patient rv notified of wait time. 01:07 Inserted saline lock: 20 gauge in right wrist, using aseptic technique. rv 01:08 Lucas Wilson, ANDERSON is Primary Nurse. rr5 01:08 Patient has correct armband on for positive identification. Bed in low position. Call rv light in reach. Side rails up X2. ekg monitor tech on. Pulse ox on. NIBP on. 01:26 XRAY Chest (1 view) In Process Unspecified. EDMS 01:30 First set of blood cultures drawn by me. mt 01:50 Flu and/or RSV swab sent to lab. Strep swab sent to lab. covid 19. rr5 02:14 Radiology exam delayed due to Waiting on D-Dimer results per Dr. Curiel. kw1 02:15 IV discontinued, intact, bleeding controlled, No redness/swelling at site. Pressure rr5 dressing applied, accidentally pulled by the patient. 02:20 Inserted saline lock: 20 gauge in left antecubital area, using aseptic technique. rr5 02:38 Wali Lee MD is Hospitalizing Provider. genesis 03:30 Urine collected: clean catch specimen, clear. rr5 04:03 No provider procedures requiring assistance completed. rr5 Administered Medications: Discontinued: NS 0.9% 1000 ml IV at 125 ml/hr continuous 02:00 Drug: NS 0.9% 1000 ml Route: IV; Rate: 125 ml/hr; Site: right wrist; rr5 02:51 Follow up: Response: No adverse reaction; IV Status: Order to discontinue infusion; IV rr5 Intake: 60ml 02:33 Drug: Lasix 20 mg Route: IVP; Site: left antecubital; rr5 03:30 Follow up: Response: No adverse reaction rr5 03:16 Drug: Pepcid 20 mg Route: IVP; Site: left antecubital; rr5 04:00 Follow up: Response: No adverse reaction rr5 03:18 Drug: Lovenox 100 mg Route: Sub-Q; Site: right lower abdomen; rr5 04:00 Follow up: Response: No adverse reaction rr5 03:18 Drug: Magnesium Sulfate 1 grams Route: IVPB; Infused Over: 1 hrs; Site: left rr5 antecubital; 04:18 Follow up: Response: No adverse reaction; IV Status: Infusion continued upon admission rr5 03:20 Drug: Zofran (Ondansetron) 4 mg Route: IVP; Site: left antecubital; rr5 04:17 Follow up: Response: No adverse reaction rr5 03:22 Drug: morphine 2 mg {Note: rass 0.} Route: IVP; Site: left antecubital; rr5 04:17 Follow up: Response: No adverse reaction; Pain is decreased; RASS: Alert and Calm (0) rr5 03:58 Drug: hydrALAZINE 10 mg Route: PO; rr5 04:17 Follow up: Response: No adverse reaction; Blood pressure is lowered rr5 03:59 Drug: hydrALAZINE 5 mg Route: IV; Rate: per protocol; Site: left antecubital; rr5 04:17 Follow up: Response: No adverse reaction; Blood pressure is lowered; IV Status: rr5 Completed infusion Intake: 02:51 IV: 60ml; Total: 60ml. rr5 04:00 PO: 100ml (Water); Total: 160ml. rr5 Output: 04:00 Urine: 400ml (Voided); Total: 400ml. rr5 Outcome: 02:41 Decision to Hospitalize by Provider. genesis 04:02 Admitted to Tele accompanied by [facility], via stretcher, room 413, with oxygen, with chart, rr5 Report called to summer 04:02 Condition: stable 04:02 Instructed on the need for admit. 04:23 Patient left the ED. rr5 Signatures: Dispatcher [employer] EDAdriel Andrew MD MD cha Thompson, Erum ia ShaheenCourtney kw1 Suhail Alves RN RN rv Roque, Raymond, RN RN rr5 Corrections: (The following items were deleted from the chart) 03:37 02:53 BP 155 / 96; Pulse 84bpm; Resp 17bpm; Pulse Ox 98%; rr5 rr5 03:47 03:35 BP 161 / 110; Pulse 86bpm; Resp 25bpm; Pulse Ox 96%; rr5 rr5
--- NOTE | 2019-11-26 02:44 | EDPHYS ---
Physician Documentation [facility] Name: Keny Costa Age: 69 yrs Sex: Male : 1950 Arrival Date: 11/26/2019 Time: 01:00 Bed 3 Private MD: HANH Physician Adriel Curiel HPI: 11/25 01:05 This 69 yrs old Male presents to ER via EMS with complaints of abdominal genesis pain, diarrhea and sob. 01:05 This 69 yrs old Male presents to ER via EMS with complaints of abd pain, genesis diarrhea and sob. 01:05 The patient has shortness of breath at rest, with light activity. Onset: The egnesis symptoms/episode began/occurred 3 day(s) ago. Duration: The symptoms are continuous, and are steadily getting worse. The patient's shortness of breath is aggravated by supine position. The patient presents with abdominal pain in the lower abdomen, abdominal distention in the upper abdomen, in the lower abdomen. Onset: The symptoms/episode began/occurred 3 day(s) ago. The patient presents to the emergency department with diarrhea. Possible causes: unknown. The symptoms are aggravated by nothing. The symptoms are alleviated by nothing. Associated signs and symptoms: Pertinent positives: non-productive cough. Historical: - Allergies: 01:05 PENICILLINS; rv - Home Meds: 01:05 atorvastatin 20 mg Oral tab 1 tab once daily [Active]; clopidogrel 75 mg Oral tab 1 tab rv once daily [Active]; gabapentin 300 mg Oral cap 1 cap four times a day [Active]; hydroxychloroquine 200 mg Oral tab 1 tab once daily [Active]; Invokamet 150-1,000 mg Oral tab 1 tab daily [Active]; Levaquin 500 mg Oral tab [Active]; lisinopril 20 mg Oral tab 1 tab once daily [Active]; metoprolol tartrate 25 mg Oral tab 1 tab once daily [Active]; oxybutynin chloride 5 mg Oral tab 1 tab 2 times per day [Active]; Novolin 70/30 [place] Sub-Q 40 units twice a day [Active]; phenazopyridine 200 mg Oral tab [Active]; prednisone 2.5 mg Oral tab once daily [Active]; - PMHx: 01:05 Diabetes - NIDDM; High Cholesterol; Hypertension; Myocardial infarction; rv - Immunization history:: Adult Immunizations up to date. - Social history:: Smoking status: Reported history of juuling and/or vaping. - Family history:: not pertinent. ROS: 01:05 Constitutional: Negative for fever, chills, and weight loss, Eyes: Negative for injury, genesis pain, redness, and discharge, ENT: Negative for injury, pain, and discharge, Neck: Negative for injury, pain, and swelling, Cardiovascular: Negative for chest pain, palpitations, and edema, Back: Negative for injury and pain, : Negative for injury, bleeding, discharge, and swelling, MS/Extremity: Negative for injury and deformity, Skin: Negative for injury, rash, and discoloration, Neuro: Negative for headache, weakness, numbness, tingling, and seizure, Psych: Negative for depression, anxiety, suicide ideation, homicidal ideation, and hallucinations, Allergy/Immunology: Negative for hives, rash, and allergies, Endocrine: Negative for neck swelling, polydipsia, polyuria, polyphagia, and marked weight changes, Hematologic/Lymphatic: Negative for swollen nodes, abnormal bleeding, and unusual bruising. 01:05 Respiratory: Positive for cough, shortness of breath, at rest. 01:05 Abdomen/GI: Positive for abdominal pain, diarrhea, of the right upper quadrant, left upper quadrant, right lower quadrant and left lower quadrant. 01:05 MS/extremity: Negative for acute changes. Exam: 01:05 Constitutional: This is a well developed, well nourished patient who is awake, alert, genesis and in no acute distress. Head/Face: Normocephalic, atraumatic. Eyes: Pupils equal round and reactive to light, extra-ocular motions intact. Lids and lashes normal. Conjunctiva and sclera are non-icteric and not injected. Cornea within normal limits. Periorbital areas with no swelling, redness, or edema. ENT: Nares patent. No nasal discharge, no septal abnormalities noted. Tympanic membranes are normal and external auditory canals are clear. Oropharynx with no redness, swelling, or masses, exudates, or evidence of obstruction, uvula midline. Mucous membranes moist. Neck: Trachea midline, no thyromegaly or masses palpated, and no cervical lymphadenopathy. Supple, full range of motion without nuchal rigidity, or vertebral point tenderness. No Meningismus. Chest/axilla: Normal chest wall appearance and motion. Nontender with no deformity. No lesions are appreciated. Cardiovascular: Regular rate and rhythm with a normal S1 and S2. No gallops, murmurs, or rubs. Normal PMI, no JVD. No pulse deficits. Respiratory: Lungs have equal breath sounds bilaterally, clear to auscultation and percussion. No rales, rhonchi or wheezes noted. No increased work of breathing, no retractions or nasal flaring. Abdomen/GI: Soft, non-tender, with normal bowel sounds. No distension or tympany. No guarding or rebound. No evidence of tenderness throughout. Back: No spinal tenderness. No costovertebral tenderness. Full range of motion. Male : Normal genitalia with no discharge or lesions. Skin: Warm, dry with normal turgor. Normal color with no rashes, no lesions, and no evidence of cellulitis. MS/ Extremity: Pulses equal, no cyanosis. Neurovascular intact. Full, normal range of motion. Neuro: Awake and alert, GCS 15, oriented to person, place, time, and situation. Cranial nerves II-XII grossly intact. Motor strength 5/5 in all extremities. Sensory grossly intact. Cerebellar exam normal. Normal gait. Psych: Awake, alert, with orientation to person, place and time. Behavior, mood, and affect are within normal limits. 01:12 ECG was reviewed by the Attending Physician. genesis 01:16 Musculoskeletal/extremity: ROM: full active range of motion, full passive range of genesis motion, Circulation is intact in all extremities. the right leg and left leg numbness, decreased sensation, Compartment Syndrome exam of affected extremity: is normal. DVT Exam: No signs of deep vein thrombosis. no swelling, no tenderness, negative Homans' sign noted on exam, no appreciated bluish discoloration, no erythema, no increased warmth, pain. Vital Signs: 01:00 BP 162 / 103; Pulse 76; Resp 19; Temp 98.5; Pulse Ox 97% on R/A; Weight 106.59 kg; rv Height 6 ft. (182.88 cm); Pain 3/10; 02:00 BP 145 / 85; Pulse 70; Resp 24; Pulse Ox 99% ; rr5 02:53 BP 155 / 96; Pulse 84; Resp 27; Pulse Ox 98% ; rr5 03:10 BP 162 / 115; Pulse 80; Resp 25; Pulse Ox 95% ; rr5 03:35 BP 161 / 110; Pulse 86; Resp 25; Pulse Ox 96% on 3 lpm NC; rr5 04:03 BP 133 / 80; Pulse 87; Resp 22; Temp 97.2; Pulse Ox 99% on 3 lpm NC; rr5 01:00 Body Mass Index 31.87 (106.59 kg, 182.88 cm) rv 03:35 complaining of SOB, rr5 MDM: 01:01 Patient medically screened. [facility] 01:10 Data reviewed: vital signs, nurses notes, lab test result(s), EKG, radiologic studies, genesis plain films. 01:10 Differential diagnosis: CHF exacerbation, Chronic Obstructive Pulmonary Disease genesis diverticulitis, gastroenteritis, pneumonia, pulmonary edema, Pulmonary Embolism appendicitis, bowel obstruction, diverticulitis, Prostatitis, urinary tract infection. Immunization status: Pneumococcal vaccine: Influenza vaccine: Data interpreted: classroom monitor: rate is 76 beats/min, Pulse oximetry: on room air is 97 %. Test interpretation: by ED physician or midlevel provider: ECG, plain radiologic studies. 01:17 The patient's Wells Deep Vein Thrombosis Score was calculated as follows: Total Score: genesis 0-2 Pts- Low Risk. The patient's pulmonary embolism risk score was calculated as follows: Total Score: 0-2 points. This patient was found to be at low risk for a pulmonary embolism by using the Well's assessment criteria. Counseling: I had a detailed discussion with the patient and/or guardian regarding: the historical points, exam findings, and any diagnostic results supporting the discharge/admit diagnosis, lab results, radiology results, the need for further work-up and treatment in the hospital. 11/25 01:04 Order name: Basic Metabolic Panel [facility] 11/25 01:04 Order name: CBC with Diff; Complete Time: 02:00 [facility] 11/25 01:04 Order name: LFT's; Complete Time: 02:14 [facility] 11/25 01:04 Order name: Magnesium; Complete Time: 02:14 [facility] 11/25 01:04 Order name: NT PRO-BNP; Complete Time: 02:14 [facility] 11/25 01:04 Order name: PT-INR; Complete Time: 02:00 [facility] 11/25 01:04 Order name: Troponin (emerg Dept Use Only); Complete Time: 02:14 [facility] 11/25 01:04 Order name: Lipase; Complete Time: 02:14 [facility] 11/25 01:04 Order name: Blood Culture Adult (2) [facility] 11/25 01:04 Order name: Procalcitonin; Complete Time: 02:29 [facility] 11/25 01:04 Order name: Influenza Screen (a \T\ B); Complete Time: 03:21 [facility] 11/25 01:04 Order name: COVID-19 [facility] 11/25 01:04 Order name: Urine Culture [facility] 11/25 01:05 Order name: Basic Metabolic Panel; Complete Time: 02:14 [facility] 11/25 01:04 Order name: XRAY Chest (1 view) [facility] 11/25 01:04 Order name: CT Abd/Pelvis - IV Contrast Only [facility] 11/25 01:35 Order name: Strep; Complete Time: 03:21 [facility] 11/25 02:01 Order name: D-Dimer; Complete Time: 02:29 [facility] 11/25 02:29 Order name: CT Chest For PE Angio [facility] 11/25 02:53 Order name: Throat Culture [facility] 11/25 01:04 Order name: EKG; Complete Time: 01:06 [facility] 11/25 01:04 Order name: Cardiac monitoring; Complete Time: 01:35 [facility] 11/25 01:04 Order name: EKG - Nurse/Tech; Complete Time: 01:35 [facility] 11/25 01:04 Order name: IV Saline Lock; Complete Time: 01:35 [facility] 11/25 01:04 Order name: Labs collected and sent; Complete Time: 01:35 [facility] 11/25 01:04 Order name: O2 Per Protocol; Complete Time: 01:35 [facility] 11/25 01:04 Order name: O2 Sat Monitoring; Complete Time: 01:35 [facility] 11/25 01:04 Order name: Urine Dipstick-Ancillary (obtain specimen); Complete Time: 04:02 [facility] 11/25 02:49 Order name: CONS Physician Consult [facility] EC:12 Rate is 75 beats/min. Rhythm is regular. QRS [place] is Normal. DC interval is normal. QRS genesis interval is normal. QT interval is normal. No Q waves. T waves are Inverted in leads II, III, aVF. ST Segment is depressed in leads II, III, aVF. Clinical impression: NSR w/ Non-specific ST/T Changes. Interpreted by me. Reviewed by me. Administered Medications: Discontinued: NS 0.9% 1000 ml IV at 125 ml/hr continuous 02:00 Drug: NS 0.9% 1000 ml Route: IV; Rate: 125 ml/hr; Site: right wrist; rr5 02:51 Follow up: Response: No adverse reaction; IV Status: Order to discontinue infusion; IV rr5 Intake: 60ml 02:33 Drug: Lasix 20 mg Route: IVP; Site: left antecubital; rr5 03:30 Follow up: Response: No adverse reaction rr5 03:16 Drug: Pepcid 20 mg Route: IVP; Site: left antecubital; rr5 04:00 Follow up: Response: No adverse reaction rr5 03:18 Drug: Lovenox 100 mg Route: Sub-Q; Site: right lower abdomen; rr5 04:00 Follow up: Response: No adverse reaction rr5 03:18 Drug: Magnesium Sulfate 1 grams Route: IVPB; Infused Over: 1 hrs; Site: left rr5 antecubital; 04:18 Follow up: Response: No adverse reaction; IV Status: Infusion continued upon admission rr5 03:20 Drug: Zofran (Ondansetron) 4 mg Route: IVP; Site: left antecubital; rr5 04:17 Follow up: Response: No adverse reaction rr5 03:22 Drug: morphine 2 mg {Note: rass 0.} Route: IVP; Site: left antecubital; rr5 04:17 Follow up: Response: No adverse reaction; Pain is decreased; RASS: Alert and Calm (0) rr5 03:58 Drug: hydrALAZINE 10 mg Route: PO; rr5 04:17 Follow up: Response: No adverse reaction; Blood pressure is lowered rr5 03:59 Drug: hydrALAZINE 5 mg Route: IV; Rate: per protocol; Site: left antecubital; rr5 04:17 Follow up: Response: No adverse reaction; Blood pressure is lowered; IV Status: rr5 Completed infusion Disposition: 11/26/19 02:41 Hospitalization ordered by Wali Lee for Inpatient Admission. Preliminary diagnosis are Dyspnea, Type 2 diabetes mellitus, Hypomagnesemia, Abdominal tenderness, Diarrhea, unspecified, Unspecified diastolic (congestive) heart failure, Essential (primary) hypertension, Noninfective gastroenteritis and colitis, unspecified - hepatic flexure. - Bed requested for Telemetry/MedSurg (Inpatient). - Status is Inpatient Admission. rr5 - Condition is Fair. - Problem is new. - Symptoms have improved. Signatures: Dispatcher [employer] EDAdriel Andrew MD MD cha Garcia, Cindy, RN RN cg Suhail Alves, RN RN Lucas Wilson RN RN rr5 Corrections: (The following items were deleted from the chart) 02:43 02:41 Hospitalization Ordered by Wali Lee MD for Inpatient Admission. Preliminary genesis diagnosis is Dyspnea; Type 2 diabetes mellitus; Hypomagnesemia; Abdominal tenderness; Diarrhea, unspecified. Bed requested for Telemetry/MedSurg (Inpatient). Status is Inpatient Admission. Condition is Fair. Problem is new. Symptoms have improved. [facility] 03:00 02:43 11/26/2019 02:41 Hospitalization Ordered by Wali Lee MD for Inpatient cg Admission. Preliminary diagnosis is Dyspnea; Type 2 diabetes mellitus; Hypomagnesemia; Abdominal tenderness; Diarrhea, unspecified; Unspecified diastolic (congestive) heart failure; Essential (primary) hypertension. Bed requested for Telemetry/MedSurg (Inpatient). Status is Inpatient Admission. Condition is Fair. Problem is new. Symptoms have improved. genesis 03:48 03:00 11/26/2019 02:41 Hospitalization Ordered by Wali Lee MD for Inpatient genesis Admission. Preliminary diagnosis is Dyspnea; Type 2 diabetes mellitus; Hypomagnesemia; Abdominal tenderness; Diarrhea, unspecified; Unspecified diastolic (congestive) heart failure; Essential (primary) hypertension. Bed requested for Telemetry/MedSurg (Inpatient). Status is Inpatient Admission. Condition is Fair. Problem is new. Symptoms have improved. cg 04:23 03:48 11/26/2019 02:41 Hospitalization Ordered by Wali Lee MD for Inpatient rr5 Admission. Preliminary diagnosis is Dyspnea; Type 2 diabetes mellitus; Hypomagnesemia; Abdominal tenderness; Diarrhea, unspecified; Unspecified diastolic (congestive) heart failure; Essential (primary) hypertension; Noninfective gastroenteritis and colitis, unspecified - hepatic flexure. Bed requested for Telemetry/MedSurg (Inpatient). Status is Inpatient Admission. Condition is Fair. Problem is new. Symptoms have improved. genesis
[2019-11-26] MEDS ORDERED: ENOXAPARIN 100 MG/ML SYR SQ ONE (03:14)
[2019-11-26] MEDS ORDERED: MAGNESIUM SULFATE 1 gm IVPB 1 GM/100 ML BAG IV ONE (03:14)
[2019-11-26] MEDS ORDERED: FAMOTIDINE 20 MG/2 ML VIAL IV ONE (03:15)
[2019-11-26] MEDS ORDERED: MORPHINE 2 MG/ML SYR ONE (03:36)
[2019-11-26] MEDS ORDERED: ONDANSETRON 4 MG/2 ML VIAL ONE (03:36)
[2019-11-26] MEDS ORDERED: HYDRALAZINE HCL 20 MG/ML VIAL ONE (03:58)
[2019-11-26] MEDS ORDERED: HYDRALAZINE HCL 10 MG TABLET ONE (03:58)
[2019-11-26] MEDS ORDERED: CIPROFLOXACIN 400mg IV 400 MG/200 ML BAG IV ONE (03:58)
[2019-11-26] MEDS ORDERED: METRONIDAZOLE 500mg IVPB 500 MG/100 ML BAG IV ONE (03:59)
[2019-11-26] MEDS ORDERED: ONDANSETRON 4 MG/2 ML VIAL IV PRN (04:18)
[2019-11-26] MEDS ORDERED: MORPHINE 4 MG/ML SYR IV PRN (04:18)
[2019-11-26] MEDS ORDERED: GLUCAGON 1 MG/VIAL IM PRN ×2 (04:18→07:18)
[2019-11-26] MEDS ORDERED: IPRATROPIUM BROM 0.5MG/2.5ML NEB PRN ×2 (04:18→19:18)
[2019-11-26] MEDS ORDERED: D50W 25 GM/50 ML SYRINGE/VIAL IV PRN ×2 (04:18→07:18)
[2019-11-26] MEDS ORDERED: ALBUTEROL 2.5 MG/3 ML NEB SOL NEB PRN (04:18)
[2019-11-26] MEDS ORDERED: ACETAMINOPHEN 325 MG TABLET PO PRN (04:44)
[2019-11-26] MEDS: CIPROFLOXACIN 400mg IV 400 MG/200 ML BAG IV SCH ×3 (05:30→20:38)
[2019-11-26] MEDS: METRONIDAZOLE 500mg IVPB 500 MG/100 ML BAG IV SCH ×4 (05:30→23:03)
[2019-11-26 06:13] VITALS: BMI 31.2
[2019-11-26 07:05] LABS: Urine Appearance CLEAR; Urine Bilirubin NEGATIVE (NEG); Urine Blood NEGATIVE (NEG); Urine Color YELLOW; Urine Glucose TRACE (NEG); Urine Protein NEGATIVE (NEG); Urine Specific Gravity >=1.030 (1.005-1.030); Urine Urobilinogen 0.2 mg/dL (0.2-1.0)
[2019-11-26] MEDS ORDERED: TRAMADOL HCL 50 MG TAB PO PRN (07:18)
[2019-11-26] MEDS ORDERED: INSULIN -REGULAR HUMAN 50 UNIT/0.5 ML ML SQ SCH (07:30)
[2019-11-26] MEDS: INSULIN 70/30 100 UNITS/ML SQ SCH ×3 (08:01→20:38)
[2019-11-26] MEDS: FUROSEMIDE 20 MG/ 2ML VIAL IV SCH ×2 (08:02→17:12)
[2019-11-26] MEDS: CLOPIDOGREL 75 MG TABLET PO SCH (08:02)
[2019-11-26] MEDS: TAMSULOSIN 0.4 MG SR CAP PO SCH (08:02)
[2019-11-26] MEDS: FAMOTIDINE 20 MG/2 ML VIAL IV SCH ×2 (08:02→20:38)
[2019-11-26] MEDS: MAGNESIUM OXIDE 400 MG TAB PO SCH (08:02)
[2019-11-26] MEDS: HYDRALAZINE HCL 10 MG TABLET PO SCH ×2 (08:03→20:38)
[2019-11-26] MEDS: FOLIC ACID 1 MG TABLET PO SCH (08:03)
[2019-11-26 08:07] LABS: Urine Bacteria <20 /HPF (NONE SEEN); Urine Culture Reflex Order NOT NEEDED; Urine RBC <5 /HPF (NONE SEEN)
[2019-11-26] MEDS: HOME MED 1 EA UNK (Gabapentin [Gabapentin] 600 MG) PO SCH ×2 (08:11→13:48)
[2019-11-26] MEDS: METOPROLOL XL 100 MG TAB PO SCH (08:14)
[2019-11-26] MEDS ORDERED: METOPROLOL TAR 50 MG TAB PO SCH (09:00)
[2019-11-26] MEDS ORDERED: HOME MED 1 EA UNK (Lisinopril [Zestril] 40 MG) PO SCH (09:00)
[2019-11-26] MEDS ORDERED: lisinopriL 10 MG TAB PO SCH (09:00)
--- NOTE | 2019-11-26 09:01 | RAD REPORT ---
EXAM DESCRIPTION: RAD - Chest Single View - 11/26/2019 1:26 am CLINICAL HISTORY: DYSPNEA COMPARISON: CT chest November 2017 TECHNIQUE: AP portable chest image was obtained 11/26/2019 1:26 am . FINDINGS: Lungs are clear. Heart and vasculature are normal. No measurable pleural effusion and no p neumothorax. No acute bony abnormality seen. No acute aortic findings suspected. IMPRESSION: No acute cardiopulmonary process.
--- NOTE | 2019-11-26 12:08 | P.HP ---
Certification for Inpatient Patient admitted to: Inpatient Practitioner: I am a practitioner with admitting privileges, knowledge of patient current condition, hospital course, and medical plan of care. Services: Services provided to patient in accordance with Admission requirements found in Title 42 Section 412.3 of the Code of Federal Regulations Patient History Date of Service: 11/26/19 Reason for admission: NAUSEA, ABDOMEN PAIN, DIARRHEA AND DYSPNEA. History of Present Illness: MR. GAYLE IS 69 YEARS OLD GM WITH DM, OBESITY, RA COMES WITH NAUSEA, DIARRHEA, LOWER ABDOMEN PAIN AND ALSO DYSPNEA ON EXERTION. THIS IS ALL FOR ABOUT 3 DAYS. HE HAS NO CHEST PAIN AND HIS COVID 19 TEST IS NEGATIVE. Allergies Penicillins Allergy (Severe, Verified 11/26/19 07:12) Itching/Hives/Rash Home Medications: Clopidogrel Bisulfate [Plavix] 75 mg PO DAILY 11/26/19 Folic Acid 1 mg PO DAILY 11/26/19 Gabapentin 600 mg PO TID 11/26/19 Hydroxychloroquine [Plaquenil] 200 mg PO BID 11/26/19 Insulin NPH Hum/Reg Insulin Hm [Novolin 70-30 100 Unit/ml Vial] 30 unit SQ TID 11/26/19 Lisinopril [Zestril] 40 mg PO DAILY 11/26/19 Metformin ER [Glucophage ER] 2,000 mg PO DAILY 6PM 11/26/19 Metoprolol Succinate [Toprol Xl] 100 mg PO DAILY 11/26/19 Tamsulosin [Flomax] 0.4 mg PO DAILY 11/26/19 Tramadol HCl [Ultram] 50 mg PO BIDP PRN 11/26/19 - Past Medical/Surgical History Has patient received pneumonia vaccine in the past: Yes Diabetic: Yes -: IDDM -: Hich Cholesterol -: HTN -: OK x3 -: heart stents -: leg stent -: Cancerous tumor removed from rt Kidney 4 years ago -: Bk Sx x2 - Family History Mother -: Hypertension, Diabetes, Stroke Father -: Heart disease, Lung disease, Cancer Notes: Lung Cancer - Social History Smoking Status: Former smoker Alcohol use: No CD- Drugs: No Caffeine use: Yes Place of Residence: Home Review of Systems 10-point ROS is otherwise unremarkable General: Weakness Physical Examination - Vital Signs Temperature: 97.9 F Blood Pressure: 148/66 Pulse: 97 Respirations: 18 Pulse Ox (%): 95 - Physical Exam General: Mild distress, Moderate distress, Obese HEENT: Atraumatic, PERRLA, Mucous membr. moist/pink, EOMI, Sclerae nonicteric Neck: Supple, 2+ carotid pulse no bruit, No LAD, Without JVD or thyroid abnormality Respiratory: Clear to auscultation bilaterally, Normal air movement Cardiovascular: Regular rate/rhythm, Normal S1 S2 Gastrointestinal: Normal bowel sounds, No tenderness Musculoskeletal: No tenderness Integumentary: No rashes Neurological: Normal gait, Normal speech, Normal strength at 5/5 x4 extr, Normal tone, Normal affect Lymphatics: No axilla or inguinal lymphadenopathy - Studies Laboratory Data (last 24 hrs) 11/26/19 01:30: PT 11.5, INR 0.97 11/26/19 01:30: WBC 7.5, Hgb 16.1, Hct 46.8, Plt Count 180 11/26/19 01:30: Sodium 138, Potassium 4.3, BUN 19 H, Creatinine 1.14, Glucose 198 H, Magnesium 1.7 L, Total Bilirubin 0.5, AST 13 L, ALT 25, Alkaline Phosphatase 74, Lipase 53 L Microbiology Data (last 24 hrs): 11/26/19 01:47 Throat Group A Streptococcus Rapid Screen - Final 11/26/19 01:30 Nasopharnyx Influenza Type A Antigen Screen - Final 11/26/19 01:30 Nasopharnyx Influenza Type B Antigen Screen - Final Assessment and Plan - Problems (Diagnosis) (1) Dyspnea Current Visit: Yes Status: Acute Plan: DIASTOLIC DYSFUNCTION POSSIBLE BUT NO FLUID ON CT SCAN. PE NEG STUDY. LOW DOSE DIURETIC. HE MAY HAVE UNSTABLE ANGINA. HIS CATH WAS NEG TWO YEARS AGO. IF NOT IMPROVED ON LASIX DR. MORALES MAY CONSIDER ANGIOGRAM. HE IS ALREADY ON PLAVIX. LOVENOX SC BID. HALF THE DOSE HE MAY BLEED ALONG WITH PLAVIX. I UNDERSTAND IT IS NOT A STANDARD BUT NOT EVERY PATIENT IS A STANDARD PATIENT. I SUSPECT FULL DOSE OF LOVENOX WILL DO MORE HARM IF HE STARTS BLEEDING HE IS ALREADY ON PLAVIX AND HAS RA. ATTN.PHARMACIST WHO CALLED. RENAL FUNCTION AT 69 WITH DIABETES LOWER THAN NORMAL SO THE DOSE OF LOVENOX IS LOWER THAN NORMAL. Qualifiers: Dyspnea type: dyspnea on exertion Qualified Code(s): R06.00 - Dyspnea, unspecified (2) Colitis Current Visit: Yes Status: Acute Plan: CIPRO AND FLAGYL CHECK C DIFF. (3) Diabetes Current Visit: Yes Status: Chronic Plan: DIET IS POOR AND HE HAS BEEN ADVISED HOW TO EAT IN PAST MANY TIMES. CHECK A1C, LDL. 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
[2019-11-26 15:42] LABS: UR MICROALBUMIN 9.7 mg/dL (< 1.9)
[2019-11-26] MEDS: GABAPENTIN 300 MG CAP PO SCH ×2 (17:12→20:38)
--- NOTE | 2019-11-26 19:44 | RAD REPORT ---
EXAM DESCRIPTION: CT - Abdomen Pelvis W Contrast - 11/26/2019 5:34 am CLINICAL HISTORY: Abd pain;Abdominal distention COMPARISON: None. TECHNIQUE: CT ABDOMEN PELVIS WITH IV CONTRAST on 11/26/2019 1:04 AM CDT This exam was performed according to our departmental dose-optimization program, which includes autom ated exposure control, adjustment of the mA and/or kV according to patient size and/or use of iterati ve reconstruction technique. FINDINGS: Lower lungs are clear. Abdomen: There is mild inflammation adjacent to the hepatic flexure of the colon. There is no biliary dilatation. Gallbladder is normal in appearance. The pancreas and spleen are normal in appearance. A drenal glands are normal. Kidneys are mildly atrophic. Abdominal aorta is densely calcified without aneurysm. There is no free air. There is no retroperiton eal adenopathy. Pelvis: There is no bowel obstruction. Urinary bladder is unremarkable. There is no free fluid. Appen lorena is normal. Skeleton: There are no acute osseous findings. No suspicious bony lesions. IMPRESSION: Mild segmental infectious or inflammatory colitis. Electronically signed by: Blanco Paiz MD 11/26/2019 3:38 AM CDT Due to temporary technical issues with the PACS/Fluency reporting system, reports are being signed by the in house radiologist as a courtesy to ensure prompt reporting. The interpreting radiologist is f ully responsible for the content of the report.
--- NOTE | 2019-11-26 20:01 | RAD REPORT ---
EXAM DESCRIPTION: CT - Chest For Pe Angio - 11/26/2019 5:34 am CLINICAL HISTORY: PE COMPARISON: None. TECHNIQUE: CT CHEST ANGIOGRAPHY WITH IV CONTRAST on 11/26/2019 2:29 AM CDT. MIPS reconstructions were generated. This exam was performed according to our departmental dose-optimization program, which includes autom ated exposure control, adjustment of the mA and/or kV according to patient size and/or use of iterati ve reconstruction technique. MIP images were generated. FINDINGS: Thoracic aorta is normal in course and caliber without aneurysm or dissection. Pulmonary a rteries are adequately opacified without acute or chronic filling defects. The heart is normal in size. There is no pericardial effusion. Intrathoracic lymph nodes are not enla rged. There is no pleural effusion, pleural thickening or pneumothorax. Central airways are patent. Lungs a re clear with no consolidation, mass or interstitial lung disease. There is a small hiatal hernia. There are no acute osseous findings. No suspicious bony lesions. IMPRESSION: No aortic dissection or aneurysm. No pulmonary embolus. No pneumonia. Electronically signed by: Blanco Paiz MD 11/26/2019 3:36 AM CDT Due to temporary technical issues with the PACS/Fluency reporting system, reports are being signed by the in house radiologist as a courtesy to ensure prompt reporting. The interpreting radiologist is f ully responsible for the content of the report.
[2019-11-26] MEDS: ENOXAPARIN 60 MG/0.6 ML SQ SCH (20:37)
[2019-11-26] MEDS: ALPRAZOLAM 0.25 MG TABLET PO PRN (20:38)
[2019-11-26] MEDS: EZETIMIBE 10 MG TAB PO SCH (20:38)
[2019-11-26] MEDS: FLUTICASONE 50MCG NASAL SPRAY NAS SCH (20:39)
--- NOTE | 2019-11-26 20:42 | CON ---
Date of Consultation: 11/26/2019 Reason For Consultation: Shortness of breath and hypertension. History Of Present Illness: Mr. Costa is a 69-year-old male, he is known to me from the past. I have done a SFA stent on a total occlusion of his SFA in 2017. He does have a history of coronary artery disease, status post stent, had a negative cardiac workup in 2017. He has diabetes, hypertension, d yslipidemia, has been doing well, but apparently came in with few days of dyspnea on exertion, abdomi nal pain, diarrhea, nausea, but no vomiting. He denied any chest pain. Denied any pedal edema. He denied any palpitation or syncope. Denied any fever, but has had some chills. Past Medical History: Includes CAD, PAD, status post left SFA stent, diabetes, hypertension, dyslipi demia. He is status post stent as well. He also has a history of neuropathy, rheumatoid arthritis, and benign prostatic hypertrophy. Allergies: PENICILLIN. Review of Systems: Negative. Social History: Negative. Family History: Noncontributory. Medications: At home include insulin, metformin, Toprol, Plavix, Neurontin, Flomax, Plaquenil, and Z estril. Physical Examination: General: When I saw him, he was comfortable, but still have some dyspnea with minimal exertion. Sti ll denying any chest pain. Vital Signs: Stable. His blood pressure was 148/66. He was in a sinus rhythm with PVCs. Afebrile. He weighed 230 pounds. HEENT: Negative. Neck: Supple without any bruit, lymphadenopathy, JVD, or thyromegaly. Chest: Clear to auscultation and percussion. Cardiac: Revealed a regular rhythm and rate with an S4 gallops. No murmurs or rubs. Abdomen: Benign. Extremities: Revealed no clubbing, cyanosis. He had trace edema. Diagnostic Data: His chest x-ray was normal. CT of the abdomen and CT angiogram were pending. His D-dimer was 1555. Glucose is 236. His BNP was 8232. Magnesium was 1.7. Impression And Plan: 1.Abdominal pain with diarrhea secondary to either diverticulitis or some form of enteritis. Paticee love is already on ciprofloxacin and Flagyl and he is improving from that side. 2.Dyspnea on exertion, most likely secondary to acute diastolic congestive heart failure, although h is chest x-ray is clear. He certainly may be having worsening coronary artery disease. I agree with treating him with Lasix as well as metoprolol, Plavix, and hydralazine for now. He is also on lisin opril. We will see how he does over the next few hours or a day and if he is better, we can send him home, but he will need a cardiac workup rather urgently next week with an echocardiogram and a stres s test. The case was discussed with Dr. Lee. The D-dimer is concerning and CT angiogram is still pending. CT of his abdomen is still pending. His other problems including diabetes, hypertension, a nd dyslipidemia seem to be stable at this point. He has had a stent of his left SFA, and he is not h aving symptoms of claudication now. His magnesium is low, he is having some PVCs that may be worse a ddressing with some magnesium supplementation. I will continue to follow him with Dr. Lee. ASHLEY/SHAKA Voice ID: [id number] Report ID: [id number]
[2019-11-26] MEDS: ALBUTEROL 2.5 MG/3 ML NEB SOL NEB SCH (20:45)
[2019-11-26] MEDS: IPRATROPIUM BROM 0.5MG/2.5ML NEB SCH (20:45)
[2019-11-26] MEDS ORDERED: ENOXAPARIN 40 MG/0.4 ML SQ SCH (21:00)
[2019-11-26] MEDS ORDERED: VANCOMYCIN 1.75 GM in NA CHLORIDE 0.9% 500 ML IVPB SCH (23:00)
[2019-11-26] MEDS ORDERED: NA CHLORIDE 0.9% 250 ML ONE (23:05)
[2019-11-26] MEDS ORDERED: NA CHLORIDE 0.9% 500 ML ONE (23:06)
[2019-11-26] MEDS ORDERED: VANCOMYCIN 1 GM/VIAL ONE (23:22)
[2019-11-27] MEDS ORDERED: VANCOMYCIN 1 GM in NA CHLORIDE 0.9% 500 ML IVPB SCH ×2
[2019-11-27] MEDS: ALBUTEROL 2.5 MG/3 ML NEB SOL NEB SCH ×5 (00:10→20:30)
[2019-11-27] MEDS: IPRATROPIUM BROM 0.5MG/2.5ML NEB SCH ×5 (00:10→20:30)
[2019-11-27] MEDS: METRONIDAZOLE 500mg IVPB 500 MG/100 ML BAG IV SCH ×3 (05:00→16:59)
[2019-11-27 06:09] LABS: Absolute Lymphocytes (CBC) 1.4 K/uL (0.7-4.9); Basophils % 1.1 % (0-1.3); Hematocrit 45.5 % (39.6-49.0); Lymphocytes % 22.6 % (15.3-44.8); MPV 9.1 fL (7.6-11.3); RBC Red Blood Cell Count 5.14 M/uL (4.33-5.43)
--- NOTE | 2019-11-27 07:13 | EKG ---
Test Date: 2019-11-26 Test Time: 00:56:07 Sanitation Superintendent: DARRON MEASUREMENT RESULTS: Intervals: Rate: 75 HI: 190 QRSD: 162 QT: 482 QTc: 538 [place]: P: 85 HI: 190 QRS: 76 T: -31 INTERPRETIVE STATEMENTS: Sinus rhythm with frequent premature ventricular complexes Right bundle branch block T wave abnormality, consider inferior ischemia Abnormal ECG Compared to ECG 04/20/2017 15:58:37 First degree AV block no longer present T-wave abnormality still present Possible ischemia still present Electronically Signed On 11-27-19 07:11:19 CDT by Sonny Menendez
[2019-11-27] MEDS: FOLIC ACID 1 MG TABLET PO SCH (08:18)
[2019-11-27] MEDS: CIPROFLOXACIN 400mg IV 400 MG/200 ML BAG IV SCH ×2 (08:18→22:08)
[2019-11-27] MEDS: lisinopriL 20 MG TAB PO SCH (08:19)
[2019-11-27] MEDS: GABAPENTIN 300 MG CAP PO SCH ×3 (08:19→22:07)
[2019-11-27] MEDS: METOPROLOL XL 100 MG TAB PO SCH (08:19)
[2019-11-27] MEDS: TAMSULOSIN 0.4 MG SR CAP PO SCH (08:20)
[2019-11-27] MEDS: CLOPIDOGREL 75 MG TABLET PO SCH (08:20)
[2019-11-27] MEDS: HYDRALAZINE HCL 10 MG TABLET PO SCH ×2 (08:20→22:07)
[2019-11-27] MEDS: MAGNESIUM OXIDE 400 MG TAB PO SCH (08:20)
[2019-11-27] MEDS: FAMOTIDINE 20 MG/2 ML VIAL IV SCH ×2 (08:21→22:07)
[2019-11-27] MEDS: FUROSEMIDE 20 MG/ 2ML VIAL IV SCH (08:21)
[2019-11-27] MEDS: ENOXAPARIN 60 MG/0.6 ML SQ SCH (08:21)
[2019-11-27] MEDS: INSULIN 70/30 100 UNITS/ML SQ SCH ×3 (08:22→22:06)
[2019-11-27] MEDS: FLUTICASONE 50MCG NASAL SPRAY NAS SCH ×3 (09:00→21:30)
[2019-11-27] MEDS ORDERED: lisinopriL 20 MG TAB FT SCH (09:00)
--- NOTE | 2019-11-27 11:24 | PN ---
Date of Progress Note: 11/27/2019 Mr. Costa had came in with dyspnea on exertion, hypertension, dyslipidemia, diabetes, coronary artery disease, peripheral arterial disease. He had elevated D-dimer with negative CT angiogram. He has di uresed well. He has no pedal edema today. He has no rales. His vital signs are stable. He is afeb rile. He was ambulatory yesterday and was still having some dyspnea, but feels better. He does need to have a repeat cardiac workup. He was actually scheduled in my office to have echoes and stress t est and carotid sometimes in September, but he canceled because of the COVID. He can go home today as fa r as I am concerned, but I will make sure he comes to the office in the next week and get his cardiac workup and carotid Doppler done. I will discuss the case further with Dr. Lee. ASHLEY/SHAKA Voice ID: [id number] Report ID: [id number]
[2019-11-27] MEDS: ENOXAPARIN 40 MG/0.4 ML SQ SCH (15:00)
[2019-11-27] MEDS: NACHLORIDE 0.45% 1,000 ML IV SCH (15:12)
[2019-11-27] MEDS: EZETIMIBE 10 MG TAB PO SCH (22:07)
[2019-11-28] MEDS: METRONIDAZOLE 500mg IVPB 500 MG/100 ML BAG IV SCH ×4 (00:07→17:06)
[2019-11-28] MEDS: ALBUTEROL 2.5 MG/3 ML NEB SOL NEB SCH ×4 (01:06→20:15)
[2019-11-28] MEDS: IPRATROPIUM BROM 0.5MG/2.5ML NEB SCH ×4 (01:06→20:15)
[2019-11-28] MEDS: NACHLORIDE 0.45% 1,000 ML IV SCH ×2 (05:07→16:38)
[2019-11-28] MEDS: INSULIN 70/30 100 UNITS/ML SQ SCH ×3 (08:31→21:00)
[2019-11-28] MEDS: FLUTICASONE 50MCG NASAL SPRAY NAS SCH ×2 (08:32→21:51)
[2019-11-28] MEDS: CIPROFLOXACIN 400mg IV 400 MG/200 ML BAG IV SCH ×2 (08:32→21:51)
[2019-11-28] MEDS: ENOXAPARIN 40 MG/0.4 ML SQ SCH (08:33)
[2019-11-28] MEDS: METOPROLOL XL 100 MG TAB PO SCH (08:34)
[2019-11-28] MEDS: MAGNESIUM OXIDE 400 MG TAB PO SCH (08:34)
[2019-11-28] MEDS: lisinopriL 20 MG TAB PO SCH (08:34)
[2019-11-28] MEDS: HYDRALAZINE HCL 10 MG TABLET PO SCH ×2 (08:35→21:51)
[2019-11-28] MEDS: TAMSULOSIN 0.4 MG SR CAP PO SCH (08:35)
[2019-11-28] MEDS: FOLIC ACID 1 MG TABLET PO SCH (08:35)
[2019-11-28] MEDS: GABAPENTIN 300 MG CAP PO SCH ×3 (08:35→21:51)
[2019-11-28] MEDS: CLOPIDOGREL 75 MG TABLET PO SCH (08:35)
[2019-11-28] MEDS: FAMOTIDINE 20 MG/2 ML VIAL IV SCH ×2 (08:35→09:00)
[2019-11-28] MEDS: HYDROXYCHLOROQUINE 200MG TAB PO SCH ×2 (08:38→21:51)
[2019-11-28] MEDS: VANCOMYCIN 1.75 GM in NA CHLORIDE 0.9% 500 ML IVPB SCH (12:05)
[2019-11-28] MEDS: METFORMIN ER 500 MG TAB PO SCH (17:05)
[2019-11-28] MEDS: EZETIMIBE 10 MG TAB PO SCH (21:51)
--- NOTE | 2019-11-28 22:47 | PN ---
Subjective: Mr. Costa is doing great. Has no fever. No chest pain. No coughing. Objective: Vital Signs: Blood pressure 137/59, temperature 98.9. Sugar is anywhere from 147 to 214 . HEENT: No JVD. No carotid bruits. Chest: Clear. Heart: Regular. Abdomen: No guarding, no rebound, no rigidity. Laboratory Data: His tomorrow's lab work will be CBC and Chem-7. On culture examination of the bloo d cultures, he has not shown ID yet, but he is growing Enterococcus faecalis and E coli in the urine. He is already on vancomycin for E faecalis and he is on ciprofloxacin for the other bacteria, but t he UA itself is negative. This is a contaminated urine. Urine analysis is negative. Urine culture positive. That means the bacteria from the skin is showing the culture positivity. So, I would igno re the UA and urine culture at this point. The blood culture identification is pending. It shows gr am-positive cocci in clusters. Assessment And Plan: 1.Sepsis. Unclear about the gram-positive cocci in clusters. ID is still pending. Once again, I w ill ignore the UA and urine culture because UA was totally negative. This is a classical case of fal se positive urine culture. 2.Colitis has improved. 3.Diabetes. His diet is poor. His A1c is about 8. He should be able to go home tomorrow if the cu lture shows bacteria, which is amenable to be treated orally. At the same time, he may need transeso phageal echocardiogram if there is a suspicion of endocarditis. The ID of the culture will decide his stay in the hospital. DEBI/SHAKA Voice ID: [id number] Report ID: [id number]
[2019-11-29] MEDS: ALBUTEROL 2.5 MG/3 ML NEB SOL NEB SCH ×4 (00:15→19:55)
[2019-11-29] MEDS: IPRATROPIUM BROM 0.5MG/2.5ML NEB SCH ×4 (00:15→19:55)
[2019-11-29] MEDS: METRONIDAZOLE 500mg IVPB 500 MG/100 ML BAG IV SCH ×5 (00:42→23:30)
[2019-11-29] MEDS: NACHLORIDE 0.45% 1,000 ML IV SCH ×2 (05:04→21:14)
[2019-11-29 07:25] LABS: Absolute Lymphocytes (CBC) 1.1 K/uL (0.7-4.9); Basophils % 0.2 % (0-1.3); Hematocrit 41.8 % (39.6-49.0); Lymphocytes % 23.7 % (15.3-44.8); MPV 8.7 fL (7.6-11.3); RBC Red Blood Cell Count 4.69 M/uL (4.33-5.43)
[2019-11-29 07:43] LABS: Potassium 4.6 mmol/L (3.5-5.1)
[2019-11-29] MEDS: GABAPENTIN 300 MG CAP PO SCH ×3 (08:21→21:13)
[2019-11-29] MEDS: CIPROFLOXACIN 400mg IV 400 MG/200 ML BAG IV SCH ×2 (08:21→21:13)
[2019-11-29] MEDS: HYDRALAZINE HCL 10 MG TABLET PO SCH ×2 (08:21→21:13)
[2019-11-29] MEDS: TAMSULOSIN 0.4 MG SR CAP PO SCH (08:22)
[2019-11-29] MEDS: lisinopriL 20 MG TAB PO SCH (08:22)
[2019-11-29] MEDS: METOPROLOL XL 100 MG TAB PO SCH (08:22)
[2019-11-29] MEDS: MAGNESIUM OXIDE 400 MG TAB PO SCH (08:22)
[2019-11-29] MEDS: FOLIC ACID 1 MG TABLET PO SCH (08:22)
[2019-11-29] MEDS: HYDROXYCHLOROQUINE 200MG TAB PO SCH ×2 (08:23→21:13)
[2019-11-29] MEDS: INSULIN 70/30 100 UNITS/ML SQ SCH ×3 (08:23→21:14)
[2019-11-29] MEDS: CLOPIDOGREL 75 MG TABLET PO SCH (08:23)
[2019-11-29] MEDS: FLUTICASONE 50MCG NASAL SPRAY NAS SCH ×2 (08:24→21:23)
[2019-11-29] MEDS: FAMOTIDINE 20 MG/2 ML VIAL IV SCH (08:24)
[2019-11-29] MEDS: ENOXAPARIN 40 MG/0.4 ML SQ SCH (08:28)
--- NOTE | 2019-11-29 08:36 | PN ---
Date of Progress Note: 11/28/2019 is here with dyspnea on exertion. He has been with antibiotics. He has improved as f ar as the dyspnea is concerned. Remains in the sinus rhythm and has no specific complaint today. Ec hocardiogram is pending for today. He had a stress test in my office approximately 6 weeks ago that I checked on today, which was normal. He had a carotid Doppler pending in my office. Dr. Lee has suggested have transesophageal echocardiogram today. I will see what the transthoracic ec ho shows today and I will discuss the case further with Dr. Lee for the transesophageal echocardiogram. I will make arrangements for that for now, continue present regimen. REINALDO Voice ID: [id number] Report ID: [id number]
--- NOTE | 2019-11-29 09:00 | ECHO ---
HEIGHT: 6 ft 0 in WEIGHT: 230 lb 3.2 oz DATE OF STUDY: 11/28/[address]: Adriel Curiel MD 2-DIMENSIONAL: YES M.MODE: YES DOPPLER: YES COLOR FLOW: YES TDS: PORTABLE: DEFINITY: BUBBLE STUDY: DIAGNOSIS: CONGESTIVE HEART FAILURE CARDIAC HISTORY: CATHERIZATION: YES SURGERY: NO PROSTHETIC VALVE: NO PACEMAKER: NO MEASUREMENTS (cm) DIASTOLIC (NORMALS) SYSTOLIC (NORMALS) IVSd 1.2 (0.6-1.2) LA Diam 4.0 (1.9-4.0) LVEF 55% LVIDd 5.0 (3.5-5.7) LVIDs 3.6 (2.0-3.5) %FS 29% LVPWd 1.3 (0.6-1.2) Ao Diam 3.0 (2.0-3.7) 2 DIMENSIONAL ASSESSMENT: RIGHT ATRIUM: NORMAL LEFT ATRIUM: NORMAL RIGHT VENTRICLE: NORMAL LEFT VENTRICLE: LEFT VENTRICULAR HYPERTROPHY TRICUSPID VALVE: NORMAL MITRAL VALVE: NORMAL PULMONIC VALVE: NORMAL AORTIC VALVE: NORMAL PERICARDIAL EFFUSION: NONE AORTIC ROOT: NORMAL LEFT VENTRICULAR WALL MOTION: DECREASED LEFT VENTRICULAR COMPLIANCE. NORMAL EJECTION FRACTION. DOPPLER/COLOR FLOW: NORMAL COMMENTS: MILD LEFT VENTRICULAR HYPERTROPHY - CONCENTRIC. DECREASED LEFT VENTRICULAR COMPLIANCE. NO EFFUSION. NO VEGETATION. TECHNOLOGIST: CRISTINA REES
[2019-11-29] MEDS: METFORMIN ER 500 MG TAB PO SCH (17:25)
[2019-11-29] MEDS: EZETIMIBE 10 MG TAB PO SCH (21:13)
--- NOTE | 2019-11-29 21:24 | PN ---
Subjective: Mr. Costa is doing lot better. Denies chest pain, nausea, vomiting, double vision, blurr ed vision, paralysis, any numbness. Objective: Vital Signs: Blood pressure 160/90. Chest: Clear. Heart: Regular. Abdomen: No guarding, no rebound, no rigidity. Diagnostic Studies: On echocardiogram, there are no signs of vegetations. He had a good look at [facility] ral and aortic valves according to Dr. Menendez. Assessment And Plan: 1.Gram-positive cocci. Identification is pending as a possibility, which is from the colon or colit is. He had endocarditis. Likelihood is poor according to Dr. Menendez. 2.Mild dehydration. Continue IV fluids for now. DC telemetry. RVD/MODL Voice ID: [id number] Report ID: [id number]
[2019-11-30] MEDS: VANCOMYCIN 1.75 GM in NA CHLORIDE 0.9% 500 ML IVPB SCH (00:29)
[2019-11-30] MEDS: ALPRAZOLAM 0.25 MG TABLET PO PRN (00:34)
[2019-11-30] MEDS: ALBUTEROL 2.5 MG/3 ML NEB SOL NEB SCH ×2 (01:25→08:19)
[2019-11-30] MEDS: IPRATROPIUM BROM 0.5MG/2.5ML NEB SCH ×2 (01:25→08:19)
[2019-11-30 04:44] LABS: Absolute Lymphocytes (CBC) 1.1 K/uL (0.7-4.9); Basophils % 1.1 % (0-1.3); Hematocrit 38.4 % (39.6-49.0); Lymphocytes % 20.3 % (15.3-44.8); MPV 8.7 fL (7.6-11.3); RBC Red Blood Cell Count 4.25 M/uL (4.33-5.43)
[2019-11-30 04:53] LABS: Potassium 4.1 mmol/L (3.5-5.1)
[2019-11-30] MEDS: METRONIDAZOLE 500mg IVPB 500 MG/100 ML BAG IV SCH (05:04)
[2019-11-30] MEDS: ENOXAPARIN 40 MG/0.4 ML SQ SCH (08:35)
[2019-11-30] MEDS: FAMOTIDINE 20 MG/2 ML VIAL IV SCH (08:35)
[2019-11-30] MEDS: HYDROXYCHLOROQUINE 200MG TAB PO SCH (08:35)
[2019-11-30] MEDS: INSULIN 70/30 100 UNITS/ML SQ SCH (08:36)
[2019-11-30] MEDS: MAGNESIUM OXIDE 400 MG TAB PO SCH (08:36)
[2019-11-30] MEDS: TAMSULOSIN 0.4 MG SR CAP PO SCH (08:36)
[2019-11-30] MEDS: GABAPENTIN 300 MG CAP PO SCH (08:36)
[2019-11-30] MEDS: FOLIC ACID 1 MG TABLET PO SCH (08:36)
[2019-11-30] MEDS: CLOPIDOGREL 75 MG TABLET PO SCH (08:36)
[2019-11-30] MEDS: METOPROLOL XL 100 MG TAB PO SCH (08:37)
[2019-11-30] MEDS: lisinopriL 20 MG TAB PO SCH (08:37)
[2019-11-30] MEDS: CIPROFLOXACIN 400mg IV 400 MG/200 ML BAG IV SCH (08:38)
[2019-11-30] MEDS: HYDRALAZINE HCL 10 MG TABLET PO SCH (08:45)
[2019-11-30] MEDS: FLUTICASONE 50MCG NASAL SPRAY NAS SCH (08:45)
[2019-11-30 08:47] VITALS: BP 186/73
[2019-11-30 10:34] VITALS: O2SAT 95
[2019-11-30 10:52] VITALS: TEMP 97.4
--- NOTE | 2019-11-30 17:55 | P.DS ---
Admission Date: 11/26/19 Discharge Date: 11/30/19 Disposition: ROUTINE DISCHARGE Discharge Condition: FAIR Reason for Admission: NAUSEA, ABDOMEN PAIN, DIARRHEA AND DYSPNEA. - Problems (1) Dyspnea Status: Acute Qualifiers: Dyspnea type: dyspnea on exertion Qualified Code(s): R06.00 - Dyspnea, unspecified (2) Colitis Status: Acute (3) Diabetes Status: Chronic Qualifiers: Diabetes mellitus type: type 2 Diabetes mellitus custodial insulin use: with intermediate frame tender use Diabetes mellitus complication detail: with other circulatory complications (4) Obesity Status: Acute (5) Rheumatic arteritis Status: Acute Brief History of Present Illness: MR. GAYLE IS 69 YEARS OLD GM WITH DM, OBESITY, RA COMES WITH NAUSEA, DIARRHEA, LOWER ABDOMEN PAIN AND ALSO DYSPNEA ON EXERTION. THIS IS ALL FOR ABOUT 3 DAYS. HE HAS NO CHEST PAIN AND HIS COVID 19 TEST IS NEGATIVE. Hospital Course: MR. GAYLE COMES WITH DIAPHORESIS, COLITIS, IMPROVES ONLY AFTER ADDITION OF VANCOMYCIN. HE GREW STAPH HOMINIS FROM BLOOD. THIS MAY BE FROM SKIN OR COLON. I WILL GIVE HIM ONE MORE WEEK OF LEVAQUIN. HE WILL NEED TRAV IF SYMPTOMS RECUR. DR. MORALES SAYS HE HAD CLEAR LOOK AT [facility] AND HE DID NOT SEE ENDOCARDITIS. BUT AGAIN TRAV IS MORE SENSITIVE. PATIENT UNDERSTANDS THE PLAN AND IS HAPPY TO GO HOME. Vital Signs/Physical Exam: Temp Pulse Resp BP Pulse Ox 97.4 F 87 20 186/73 H 94 11/30/19 08:00 11/30/19 08:37 11/30/19 08:00 11/30/19 08:37 11/30/19 08:00 Laboratory Data at Discharge: WBC 5.4 K/uL (4.3-10.9) D 11/30/19 04:17 Hgb 12.8 g/dL (13.6-17.9) L 11/30/19 04:17 Hct 38.4 % (39.6-49.0) L 11/30/19 04:17 Plt Count 138 K/uL (152-406) L 11/30/19 04:17 PT 11.5 SECONDS (9.5-12.5) 11/26/19 01:30 INR 0.97 11/26/19 01:30 Sodium 144 mmol/L (136-145) 11/30/19 04:17 Potassium 4.1 mmol/L (3.5-5.1) 11/30/19 04:17 BUN 23 mg/dL (7-18) H 11/30/19 04:17 Creatinine 1.35 mg/dL (0.55-1.3) H 11/30/19 04:17 Glucose 86 mg/dL (74-106) 11/30/19 04:17 Magnesium 1.7 mg/dL (1.8-2.4) L 11/26/19 01:30 Total Bilirubin 0.5 mg/dL (0.2-1.0) 11/26/19 01:30 AST 13 U/L (15-37) L 11/26/19 01:30 ALT 25 U/L (12-78) 11/26/19 01:30 Alkaline Phosphatase 74 U/L (45-117) 11/26/19 01:30 Troponin I 0.04 ng/mL (0.0-0.045) 11/26/19 09:48 LDL Cholesterol Direct 122 mg/dL (100-129) 11/26/19 12:30 Lipase 53 U/L (73-393) L 11/26/19 01:30 Home Medications: Clopidogrel Bisulfate [Plavix*] 75 mg PO DAILY 11/26/19 Folic Acid 1 mg PO DAILY 11/26/19 Gabapentin 600 mg PO TID 11/26/19 Hydroxychloroquine [Plaquenil*] 200 mg PO BID 11/26/19 Insulin NPH Hum/Reg Insulin Hm [Novolin 70-30 100 Unit/ml Vial] 30 unit SQ TID 11/26/19 Lisinopril [Zestril] 40 mg PO DAILY 11/26/19 Metformin ER [Glucophage ER*] 2,000 mg PO DAILY 6PM 11/26/19 Metoprolol Succinate [Toprol Xl] 100 mg PO DAILY 11/26/19 Tamsulosin [Flomax*] 0.4 mg PO DAILY 11/26/19 Tramadol HCl [Ultram] 50 mg PO BIDP PRN 11/26/19 levoFLOXacin [Levaquin*] 250 mg PO DAILY #7 tab 11/30/19 New Medications: levoFLOXacin [Levaquin*] 250 mg PO DAILY #7 tab
== END 2019-11-30 10:18 | disposition home or self-care (01) | DRG 872 ==
LOC: ER 00:58 → ERHOLD 02:59 → 4TH 04:07 → 2ND 15:00
PROVIDERS: ADMIT Internal Medicine; ATTEND Internal Medicine
DX: A41.9 Sepsis, unspecified organism (principal); I50.32 Chronic diastolic (congestive) heart failure; K52.9 Noninfective gastroenteritis and colitis, unspecified; E66.9 Obesity, unspecified; Z68.31 Body mass index [BMI] 31.0-31.9, adult; M06.9 Rheumatoid arthritis, unspecified; Z88.0 Allergy status to penicillin; Z79.02 Long term (current) use of antithrombotics/antiplatelets; Z79.4 Long term (current) use of insulin; Z79.899 Other long term (current) drug therapy; I25.2 Old myocardial infarction; Z95.5 Presence of coronary angioplasty implant and graft; Z87.891 Personal history of nicotine dependence; E11.59 Type 2 diabetes mellitus with other circulatory complications; E11.51 Type 2 diabetes mellitus with diabetic peripheral angiopathy without gangrene; E86.0 Dehydration; B95.7 Other staphylococcus as the cause of diseases classified elsewhere; Z79.890 Hormone replacement therapy; Z20.828 Contact with and (suspected) exposure to other viral communicable diseases; B96.20 Unspecified Escherichia coli [E. coli] as the cause of diseases classified elsewhere; B95.2 Enterococcus as the cause of diseases classified elsewhere; I45.10 Unspecified right bundle-branch block
CPT/HCPCS: 36415; 71045; 71275; 74177; 80048; 80076; 80202; 81001; 82043; 82565; 82570; 82947; 83036; 83690; 83735; 83880; 84145; 84484; 85025; 85379; 85610; 87040; 87070; 87077; 87081; 87086; 87088; 87186; 87205; 87804; 93005; 93306; 96361; 96365; 96372; 96375; 99285; J0360; J0744; J1650; J1815; J1940; J2270; J2405; J3475; J7030; J7040; Q9967; U0002

== ENCOUNTER 2020-04-04 14:54 | Observation (INO) | payer OTHER, BC ==
--- OUTSIDE RECORDS SUMMARY | 2020-04-04 14:57 | XMS REPORT | Continuity of Care Document ---
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 2016 [facility] tamsulosin Notes: (Same Inactive As: Flomax) 2016 [facility] "Do Not Crush" Cefazolin Notes: Same Inactive as: Ancef 2016 [facility] Albuterol 0.83 2.49 mg, Inactive MG/ML Inhalant Route: NEB, [place] [facility] Q20Min, Dosing Weight 106.165, kg, PRN Wheezing, Priority: STAT, Start date: 01/29/17 21:17:00 CDT, Duration: 30 day, Stop date: 02/28/17 21:16:00 CDT Diphenhydramine 12.5 mg, Inactive Route: IVP, 2016 [facility] Drug form: INJ, Q6H, Dosing Weight 106.165, kg, PRN Itching, Start date: 01/29/17 21:17:00 CDT, Duration: 30 day, Stop date: 02/28/17 21:16:00 CDT Naloxone 0.4 mg, Route: Inactive IVP, Q2MIN, 2016 [facility] Dosing Weight 106.165, kg, PRN Narcotic Reversal, Start date: 01/29/17 21:17:00 CDT, Duration: 8 doses or times, Stop date: Limited # of times Meperidine 12.5 mg, Inactive Route: IVP, 2016 [facility] Q30Min, Dosing Weight 106.165, kg, PRN Other -See Comment, For shivering, Start date: 01/29/17 21:17:00 CDT, Duration: 2 doses or times, Stop date: Limited # of times Ondansetron 4 mg, Route: Inactive IVP, ONCE, 2016 [facility] Dosing Weight 106.165, kg, PRN Nausea & Vomiting, Start date: 01/29/17 21:17:00 CDT Promethazine 6.25 mg, Inactive Route: IVPB, 2016 [facility] ONCE, Dosing Weight 106.165, kg, PRN Nausea & Vomiting, Start date: 01/29/17 21:17:00 CDT Flumazenil 0.2 mg, Route: Inactive IVP, PRN, 2016 [facility] Dosing Weight 106.165, kg, PRN Benzodiazepine Reversal, Initial dose, Start date: 01/29/17 21:17:00 CDT, Duration: 30 day, Stop date: 02/28/17 21:16:00 CDT Hydromorphone 0.5 mg, Route: Inactive 01/30[facility] IVP, Q5Min, 2016 [facility] Dosing Weight 106.165, kg, PRN Pain Score 7-10, Start date: 01/29/17 21:17:00 CDT, Duration: 4 doses or times, Stop date: Limited # of times Oxycodone 5 mg, Route: Inactive 01/30[facility] PO, Drug form: 2016 [facility] TAB, Q4H, Dosing Weight 106.165, kg, PRN Pain Score 4-6, Start date: 01/29/17 21:17:00 CDT, Duration: 30 day, Stop date: 02/28/17 21:16:00 CDT Acetaminophen 1,000 mg, Inactive Route: PO, 2016 [facility] Drug form: TAB, ONCE, Dosing Weight 106.165, kg, PRN Pain Score 1-3, Start date: 01/29/17 21:17:00 CDT, Duration: 1 doses or times, Stop date: Limited # of times esmolol 10 mg, Route: Inactive 01/30[facility] IVP, Q5Min, 2016 [facility] Dosing Weight 106.165, kg, PRN Other -See Comment, Start date: 01/29/17 21:17:00 CDT, Duration: 5 doses or times, Stop date: Limited # of times Labetalol 10 mg, Route: Inactive IVP, Q5Min, 2016 [facility] Dosing Weight 106.165, kg, PRN Elevated BP, Start date: 01/29/17 21:17:00 CDT, Duration: 5 doses or times, Stop date: Limited # of times Hydralazine 10 mg, Route: Inactive 01/30[facility] IVP, Q20Min, 2016 [facility] Dosing Weight 106.165, kg, PRN Elevated [...] Route: IV, Inactive (ANES) Drug form: 2016 [facility] INJ, ONCE, Stop date: 01/29/17 21:06:00 CDT neostigmine (ANES) Route: IV, Inactive 01/30/ [facility] Drug form: 2016 [facility] INJ, ONCE, Stop date: 01/29/17 21:06:00 CDT glycopyrrolate Route: IV, Inactive (ANES) Drug form: 2016 [facility] INJ, ONCE, Stop date: 01/29/17 21:06:00 CDT ondansetron (ANES) Route: IV, Inactive 01/30/ [facility] Drug form: 2016 [facility] INJ, ONCE, Stop date: 01/29/17 20:59:00 CDT ceFAZolin (ANES) Route: IV, Inactive Drug form: 2016 [facility] INJ, ONCE, Stop date: 01/29/17 20:44:00 CDT mannitol 25% Route: IV, Inactive intravenous Drug form: 2016 [facility] solution (ANES) INJ, ONCE, Stop date: 01/29/17 19:54:00 CDT phenylephrine Route: IV, Inactive (ANES) Drug form: 2016 [facility] INJ, ONCE, Stop date: 01/29/17 19:03:00 CDT Hextend (ANES) Route: IV, Inactive (ANES) Drug Form: 2016 [facility] INJ, Start date: 01/29/17 18:46:00 CDT, Stop date: 01/29/17 19:46:00 CDT ceFAZolin (ANES) Route: IV, Inactive (ANES) Drug form: 2016 [facility] INJ, Start date: 01/29/17 17:14:00 CDT, Stop date: 01/29/17 18:14:00 CDT Docusate Notes: (Same No Longer as: Colace) Active 2016 [facility] (Do Not Crush) rocuronium (ANES) Route: IV, Inactive Drug form: 2016 [facility] INJ, ONCE, Stop date: 01/29/17 16:53:00 CDT fentaNYL (ANES) Route: IV, Inactive Drug form: 2016 [facility] INJ, ONCE, Stop date: 01/29/17 16:33:00 CDT ceFAZolin (ANES) Route: IV, Inactive Drug form: 2016 [facility] INJ, ONCE, Stop date: 01/29/17 15:23:00 CDT acetaminophen Route: IV, Inactive (ANES) (ANES) Drug form: 2016 [facility] INJ, Start date: 01/29/17 15:22:00 CDT, Stop date: 01/29/17 16:22:00 CDT propofol (ANES) Route: IV, Inactive Drug form: 2016 [facility] INJ, ONCE, Stop date: 01/29/17 15:07:00 CDT lidocaine (ANES) Route: IV, Inactive Drug form: 2016 [facility] INJ, ONCE, Stop date: 01/29/17 15:07:00 CDT fentaNYL (ANES) Route: IV, Inactive Drug form: 2016 [facility] INJ, ONCE, Stop date: 01/29/17 15:07:00 CDT rocuronium (ANES) Route: IV, Inactive Drug form: 2016 [facility] INJ, ONCE, Stop date: 01/29/17 15:07:00 CDT midazolam (ANES) Route: IV, Inactive Drug form: 2016 [facility] SOLN, ONCE, Stop date: 01/29/17 14:47:00 CDT sodium chloride Route: IV, Inactive 0.9% 1000 ml INJ Total Volume: [place] (ANES) 1,000, Start date: 01/29/17 14:01:00 CDT, Stop date: 01/29/17 15:01:00 CDT LR 1000 mL INJ Route: IV, Inactive (ANES) Total Volume: 2016 [facility] 1,000, Start date: 01/29/17 13:53:00 CDT, Stop date: 01/29/17 14:53:00 CDT gabapentin 300 MG Notes: (Same No Longer Oral Capsule as: Neurontin) Active 2016 [place] Acetaminophen 10 Notes: Infuse No Longer MG/ML Injectable over 15 Active [address] [facility] [address] Solution minutes Do not exceed 4gm/day of acetaminophen MEDICATION WASTE Product Size: 1000 mg Product Wasted: ___ mg Insulin regular 6 unit, Route: Inactive IV, ONCE, 2016 [facility] Dosing Weight 106.165, kg, Start date: 01/29/17 11:51:00 CDT, Stop date: 01/29/17 11:51:00 CDT Insulin, Aspart, Notes: Roll in No Longer Human palms of hands Active 2016 [facility] gently; Do not shake vigorously. (Same as: NovoLOG) "single patient use only" WASTE: F/P - Black; E - Municipal Trash Bin Stable for 28 days at room temperature. Expires in days from Date Dextrose 50% 12.5 gm, 25 No Longer Syringe mL, Route: Active 2016 [facility] IVP, Drug Form: INJ, Dosing Weight 106.165, kg, PRN, PRN Blood Glucose Results, Start date: 01/29/17 11:43:00 CDT, Duration: 30 day, Stop date: 02/28/17 11:42:00 CDT Glucagon 1 mg, Route: No Longer IM, Drug form: Active 2016 [facility] PDR/INJ, PRN, Dosing Weight 106.165, kg, PRN Blood Glucose Results, Start date: 01/29/17 11:43:00 CDT, Duration: 30 day, Stop date: 02/28/17 11:42:00 CDT Hydralazine Notes: (Same No Longer as: Active 2016 [facility] Apresoline) Push over 5 minutes D5NS 1,000 mL 1,000 mL, No Longer Rate: 100 Active 2016 [facility] ml/hr, Infuse over: 10 hr, Route: IV, Dosing Weight 106.165 kg, Total Volume: 1,000, Start date: 01/29/17 11:39:00 CDT, Duration: 30 day, Stop date: 02/28/17 11:38:00 CDT Ondansetron Notes: (Same No Longer as: Zofran) Active 2016 [facility] MEDICATION WASTE Product Size: 4 mg Product Wasted: ___ mg tramadol Notes: Not to No Longer hydrochloride 50 exceed [facility] Oral Tablet 400mg/day. (Same As: Ultram) Dilaudid 0.5 mg, 0.5 No Longer mL, Route: Active 2016 [facility] IVP, Drug form: INJ, Q4H, Dosing [...] Route: Inactive MG/ML / NEB, Dosing 2016 [facility] Ipratropium Weight [place] 0.167 106.165, kg, MG/ML Inhalant ONCE, STAT, [...] (Same No Longer as: Osmitrol) Active 2016 [facility] Infuse through 5 micron or smaller [...] Refill(s) Vitamin D2 See Active Instructions, 2017 [facility] PO, 0 Refill(s) gabapentin 300 MG 300 mg = 1 Active Oral Capsule cap, PO, TID, 2017 [facility] 0 Refill(s) predniSONE 2.5 mg 2.5 mg = 1 Active oral tablet tab, PO, 2017 Daily, 0 Refill(s) NovoLIN 70/30 See Active Instructions, 2016 SUB-Q, 0 Refill(s) atorvastatin 80 mg 80 mg = 1 tab, Active oral tablet PO, Daily, [address] [facility] [address] Refill(s) canagliflozin 150 See Active MG / Metformin Instructions, 2017 [facility] hydrochloride 1000 1 tab PO, 0 MG Oral Tablet Refill(s) [Invokamet] metoprolol 50 mg 50 mg = 1 tab, Active oral tablet, PO, Daily, # 2017 [facility] ast extended release 30 tab, 0 Refill(s) Hydroxychloroquine 200 mg = 1 Active Sulfate 200 MG tab, PO, 2017 [facility] t Oral Tablet Daily, 0 Refill(s) clopidogrel 75 mg 75 mg = 1 tab, Active oral tablet PO, Daily, # [address] [facility] 30 tab, 0 Refill(s) lisinopril 40 mg 40 mg = 1 tab, Active oral tablet PO, Daily, # [address] 30 tab, 0 Refill(s) Allergies, Adverse Reactions, Alerts Substance Category Reaction Severity Reaction Status Date Comments S ource type Reported penicillins Assertion Drug Active allergy [facility] t Immunizations No Data Provided for This Section Results Order Name Results Value Reference Date Interpretation Comments [facility] Range ELECTROLYT AGAP 11.6 10.0 - 01/30 ES 20.0 [facility] ELECTROLYT eGFR 51 01/30 Result Comment: [facility] eGFR is calculated using the CKD-EPI [...] ELECTROLYT CO2 26 24 - 32 01/30 [facility] ELECTROLYT Calcium Lvl 7.9 8.5 - 10.5 01/30 [facility] ELECTROLYT Glucose Lvl 235 70 - 99 01/30 [facility] ELECTROLYT Sodium Lvl 139 135 - 145 01/30 [facility] ELECTROLYT Potassium 4.6 3.5 - 5.1 01/30 ES Lvl /2016 [facility] ELECTROLYT BUN 26 7 - 22 01/30 [facility] ELECTROLYT Creatinine 1.40 0.50 - 01/30 ES Lvl 1.40 [facility] ELECTROLYT Chloride Lvl 106 95 - 109 01/30 [facility] HEMATOLOGY Monocytes # 0.5 0.0 - 0.8 01/30 [facility] HEMATOLOGY Basophils 0.5 0.0 - 1.0 01/30 [facility] HEMATOLOGY Lymphocytes 0.6 1.0 - 5.5 01/30 MH # /2017 [facility] HEMATOLOGY Segs-Bands # 4.9 1.5 - 8.1 01/30 /2016 [facility] HEMATOLOGY Monocytes 8.5 2.0 - 12.0 01/30 /2016 [facility] HEMATOLOGY Lymphocytes 9.4 20.0 - 01/30 MH 40.0 /2016 [facility] HEMATOLOGY Segs 81.5 45.0 - 01/30 MH 75.0 /2016 [facility] HEMATOLOGY Eosinophils 0.1 0.0 - 4.0 01/30 /2016 [facility] MPV 8.2 7.4 - 10.4 01/30 /2016 [facility] Platelet 143 133 - 450 01/30 /2016 [facility] RDW 15.0 11.5 - 01/30 MH 14.5 /2016 [facility] MCHC 32.9 32.0 - 01/30 MH 36.0 /2016 [facility] MCH 29.3 27.0 - 01/30 MH 31.0 [facility] Hct 42.7 42.0 - 01/30 MH 54.0 [facility] MCV 89.1 80.0 - 01/30 MH 94.0 [facility] RBC 4.79 4.70 - 01/30 MH 6.10 /2016 [facility] Hgb 14.0 14.0 - 01/30 MH 18.0 /2016 [facility] WBC 6.0 3.7 - 10.4 01/30 /2016 [facility] PTT 23.4 22.9 - 01/30 MH 35.8 [facility] BLOOD BANK RBC product Product available 1 01/29 Resul t RESULTS (01/29/17 11:41 AM) /2016 Comment: [place] 01/29/2017 11:42 [id number]
notified Bianka blood is ready for machine pecan picker BLOOD BANK ABO/Rh A POS 01/21 RESULTS /2016 [facility] BLOOD BANK Antibody Negative 01/21 RESULTS Scrn (01/21/17 2:48 PM) /2016 [facility] ast ELECTROLYT AGAP 10.7 10.0 - 01/21 ES 20.0 [place] ELECTROLYT eGFR 77 01/21 Result ES /2016 Comment: [facility] eGFR is calculated using the CKD-EPI [...] Calcium Lvl 8.9 8.5 - 10.5 01/21 [facility] ELECTROLYT BUN 26 7 - 22 01/21 [facility] ELECTROLYT Glucose Lvl 106 70 - 99 01/21 [facility] ELECTROLYT Potassium 4.7 3.5 - 5.1 01/21 ES Lvl /2016 [facility] ELECTROLYT Sodium Lvl 140 135 - 145 01/21 [facility] ELECTROLYT Creatinine 1.00 0.50 - 01/21 ES Lvl 1.40 /2016 [facility] ELECTROLYT CO2 26 24 - 32 01/21 [facility] ELECTROLYT Chloride Lvl 108 95 - 109 01/21 [facility] HEMATOLOGY Hgb 15.5 14.0 - 01/21 MH 18.0 [facility] HEMATOLOGY RBC 5.22 4.70 - 01/21 MH 6.10 [facility] HEMATOLOGY Hct 45.5 42.0 - 01/21 MH 54.0 [facility] HEMATOLOGY MCV 87.3 80.0 - 01/21 MH 94.0 [facility] HEMATOLOGY MCH 29.6 27.0 - 01/21 MH 31.0 /2016 [facility] HEMATOLOGY MCHC 34.0 32.0 - 01/21 MH 36.0 [facility] HEMATOLOGY RDW 15.0 11.5 - 01/21 MH 14.5 [facility] HEMATOLOGY Platelet 177 133 - 450 01/21 [facility] HEMATOLOGY MPV 7.9 7.4 - 10.4 01/21 [facility] HEMATOLOGY WBC 6.6 3.7 - 10.4 01/21 [facility] HEMATOLOGY INR 0.84 0.85 - 01/21 MH 1.17 /2016 [facility] HEMATOLOGY PT 11.7 12.0 - 07/ [...] 0.5 0.0 - 0.8 / MH /2016 [facility] HEMATOLOGY Segs 73.2 45.0 - 01/21 MH 75.0 /2016 [facility] HEMATOLOGY Monocytes 7.7 2.0 - 12.0 01/21 MH /2016 [facility] HEMATOLOGY Lymphocytes 16.4 20.0 - 01/21 MH 40.0 /2017 [facility] URINE AND UA <=1.0 0.1 - [...] DX Patient Name: CLARENCE GAYLE 01/21/2017 [facility] : 1950; Age: 67 years Male MR: [id number] Study: Chest 2 views DX Order Time: 01/21/2017 2 :18 PM CDT CLINICAL INDICATION: Coughing - preop exam COMPARISON: None FINDINGS: Lines: None. Lungs: Linear atelectasis at the left lung base. No effusion, pneumothorax, focal consolidation. Mediastinum: The cardiac [place] is within normal limits of size. Midline trachea. Bones and soft tissues: No acute abnormalities. IMPRESSION: No acute cardiopulmonary abnormalities. SL: [id number] Abdomen w/wo IV PROCEDURE: ABDOMEN CT 12/01/2016 [...] Date Comments Source Heart Rate 91 01/30/2017 [facility] Temperature Oral (F) 97.6 F 01/30/2017 [place] Systolic (mm Hg) 128 01/30/[place] Diastolic (mm Hg) 73 01/30/[address] Respitory Rate 17 01/30/2017 [facility] Temperature Oral (F) 98.3 F 01/30/2017 [place] Heart Rate 94 01/30/2017 [place] Respitory Rate 17 01/30/2017 [facility] Systolic (mm Hg) 159 01/30/2017 [place] Diastolic (mm Hg) 86 [facility]/30[facility] [facility] Systolic (mm Hg) 164 01/30/2017 [place] Diastolic (mm Hg) 87 01/30/[address] Heart Rate 96 01/30/2017 [place] Respitory Rate 17 01/30/2017 [facility] Temperature Oral (F) 97.7 F 01/30/2017 [place] BMI Calculated 31.74 01/21/2017 [facility] Weight 106.165 01/21/2017 [facility] Height 182.88 cm 01/21/2017 [facility] Encounters Location Location Encounter Encounter Reason Attending ADM DC Stat us Source Details Type Number For Provider Date Date Visit [facility] Outpt Diag [id number] Honor[facility] 12/01 12/02 M [facility] [place] [facility] Observation [id number] Honorio 01/30 01/30 [facility] 0 [facility] Procedures Procedure Code Date Perfomer Comments Source Fusion [id number] [facility] Operation [id number] [facility] Stent placement [id number] [facility] ast Assessment and Plan Assessment and Plan Date Source Extracted from:Title: Clinical Document 01/30/2017 [facility] Author: Santino Gage MD Date: 01/30/17 NEUROLOGY consult note [facility] Completed: Jan, 15:49 by Santino Gage MD [...] in the left anterolateral thigh region. Coordination [id number] is intact. Gait not tested. Deep tendon [...] Tot 1900 950 950 01/29 24hr Tot 4767 [id number] Medications (49) Active Scheduled Meds (14): 01/30/17 [...] History Date Source Social History TypeResponse 01/29/2017 [facility] Smoking Status Current every day smoker; Type: [...]
[2020-04-04 16:01] LABS: Protime INR 0.97
[2020-04-04 16:02] LABS: Absolute Lymphocytes (CBC) 0.9 K/uL (0.7-4.9); Basophils % 1.3 % (0-1.3); Hematocrit 42.3 % (39.6-49.0); Lymphocytes % 15.4 % (15.3-44.8); MPV 8.3 fL (7.6-11.3); RBC Red Blood Cell Count 4.82 M/uL (4.33-5.43)
--- NOTE | 2020-04-04 16:11 | RAD REPORT ---
EXAM DESCRIPTION: RAD - Chest Single View - 04/04/2020 4:03 pm CLINICAL HISTORY: Chest pain;SOB Chest pain. COMPARISON: Chest Single View dated 11/26/2019 FINDINGS: Portable technique limits examination quality. Slightly prominent interstitial lung markings are seen in the lung bases may represent areas of atele ctasis or scarring. No focal consolidation typical of bacterial pneumonia is seen. The heart is devin l in size. No displaced fractures.
[2020-04-04 16:18] LABS: Albumin 3.7 g/dL (3.4-5.0); Bilirubin Direct 0.1 mg/dL (0-0.2); Bilirubin Total 0.4 mg/dL (0.2-1.0); Potassium 4.5 mmol/L (3.5-5.1); Protein, Total 6.7 g/dL (6.4-8.2); Troponin (Emerg Dept Use Only) 0.03 ng/mL (0.0-0.045)
--- NOTE | 2020-04-04 16:23 | RAD REPORT ---
EXAM DESCRIPTION: US - Extrem Venous W Compress Peng - 04/04/2020 4:14 pm CLINICAL HISTORY: R/o DVT Bilateral leg edema and swelling. COMPARISON: No comparisons TECHNIQUE: Real-time sonographic interrogation of the left and right lower extremity deep venous sys tems was performed. FINDINGS: Normal compressibility, flow augmentation, phasic flow and spontaneous flow is identified in both the left and right lower extremity deep venous systems. IMPRESSION: No sonographic evidence of left or right lower extremity deep venous thrombosis.
--- NOTE | 2020-04-04 16:50 | RAD REPORT ---
EXAM DESCRIPTION: CT - Chest For Pe Angio - 04/04/2020 4:36 pm CLINICAL HISTORY: Chest pain. SOB COMPARISON: Chest For Pe Angio dated 11/26/2019 TECHNIQUE: CT angiogram of the pulmonary arteries was performed with MIP. All CT scans are performed using dose optimization technique as appropriate and may include automated exposure control or mA/KV adjustment according to patient size. FINDINGS: No evidence of pulmonary thromboembolism. No acute aortic finding demonstrated. Moderate cardiomegaly. Mild interstitial pulmonary edema is seen. Area of nodular opacity in the right lung base measuring 2 0 x 12 mm seen. No significant pericardial or pleural fluid. Mild adenopathy in both hilar regions. No concerning bony finding. Thyroid gland is enlarged diffusely. IMPRESSION: No evidence of pulmonary thromboembolism. Mild CHF. Irregular area of nodularity measuring 2 cm in the right lung base noted, new since prior CT. Recomme nd follow-up CT surveillance imaging in 3 months of this lesion.
--- NOTE | 2020-04-04 17:51 | EDPHYS ---
Physician Documentation [facility] Name: Keny Costa Age: 70 yrs Sex: Male : 1950 Arrival Date: 04/04/2020 Time: 14:57 Bed 19 Private MD: ED Physician Nikolai Moya HPI: 04/04 20:32 This 70 yrs old Male presents to ER via EMS with complaints of Shortness Of kdr Breath. 20:32 The patient has shortness of breath at rest. Onset: The symptoms/episode began/occurred kdr gradually, 1 month(s) ago, The patient has been mildly short of breath for the last month but in the last 24 hours, he has become acutely more SOB and feels like he can not get a full breath. he has been off his Plavix for three days in preparation for back surgery.. Duration: The symptoms are continuous, and are steadily getting worse. The patient's shortness of breath is aggravated by exertion, light activity, walking. Associated signs and symptoms: Pertinent positives: diaphoresis, Pertinent negatives: chest pain, non-productive cough, productive cough, dizziness, fever, hemoptysis, loss of consciousness, nausea, numbness in extremities, visual changes, vomiting. Severity of symptoms: At their worst the symptoms were moderate in the emergency department the symptoms are unchanged. The patient has not experienced similar symptoms in the past. The patient has not recently seen a physician. Historical: - Allergies: 15:01 PENICILLINS; bp - Home Meds: 15:01 atorvastatin 20 mg Oral tab 1 tab once daily [Active]; clopidogrel 75 mg Oral tab 1 tab bp once daily [Active]; gabapentin 300 mg Oral cap 1 cap four times a day [Active]; hydroxychloroquine 200 mg Oral tab 1 tab once daily [Active]; Invokamet 150-1,000 mg Oral tab 1 tab daily [Active]; lisinopril 20 mg Oral tab 1 tab once daily [Active]; metoprolol tartrate 25 mg Oral tab 1 tab once daily [Active]; Novolin 70/30 Innolet Sub-Q 40 units twice a day [Active]; oxybutynin chloride 5 mg Oral tab 1 tab 2 times per day [Active]; prednisone 2.5 mg Oral tab once daily [Active]; phenazopyridine 200 mg Oral tab [Active]; - PMHx: 15:01 Diabetes - NIDDM; High Cholesterol; Hypertension; Myocardial infarction; bp - Immunization history:: Adult Immunizations up to date. - Social history:: Smoking status: Patient denies any tobacco usage or history of. ROS: 20:32 Constitutional: Negative for fever, chills, and weight loss, Eyes: Negative for injury, kdr pain, redness, and discharge, Neck: Negative for injury, pain, and swelling, Cardiovascular: Negative for chest pain, palpitations, and edema, Abdomen/GI: Negative for abdominal pain, nausea, vomiting, diarrhea, and constipation, Back: Negative for injury and pain, : Negative for injury, bleeding, discharge, and swelling, MS/Extremity: Negative for injury and deformity, Skin: Negative for injury, rash, and discoloration, Neuro: Negative for headache, weakness, numbness, tingling, and seizure activity. Psych: Negative for depression, anxiety, suicide ideation, homicidal ideation, and hallucinations, Allergy/Immunology: Negative for hives, rash, and allergies, Endocrine: Negative for neck swelling, polydipsia, polyuria, polyphagia, and marked weight changes, Hematologic/Lymphatic: Negative for swollen nodes, abnormal bleeding, and unusual bruising. 20:32 Respiratory: Positive for dyspnea on exertion, shortness of breath, Negative for hemoptysis, orthopnea, pleurisy, sputum production, wheezing. Exam: 20:31 Constitutional: This is a well developed, well nourished patient who is awake, alert, kdr and in no acute distress. 20:31 ECG was reviewed by the Attending Physician. Vital Signs: 14:57 BP 200 / 100; Pulse 85; Resp 18; Temp 98.5; Pulse Ox 100% ; bp 15:02 BP 142 / 97; Pulse 84; Resp 16; Temp 98; Pulse Ox 95% ; bp 15:50 BP 198 / 92; Pulse 74; Resp 17; Pulse Ox 96% ; bp 16:41 BP 205 / 87; Pulse 69; Resp 16; Pulse Ox 96% ; bp 17:40 BP 209 / 98; Pulse 77; Resp 17; Pulse Ox 96% ; bp 17:56 BP 212 / 95; Pulse 88; Resp 17; Pulse Ox 95% ; bp 18:42 BP 207 / 92; Pulse 81; Resp 16; Pulse Ox 94% ; bp 19:14 BP 172 / 54; Pulse 100; Resp 16; Pulse Ox 95% on R/A; ca1 20:19 BP 168 / 59; Pulse 87; Resp 18 S; Pulse Ox 95% on R/A; ca1 MDM: 17:50 Patient medically screened. kdr 20:35 Data reviewed: vital signs, nurses notes, lab test result(s), EKG, radiologic studies. kdr Counseling: I had a detailed discussion with the patient and/or guardian regarding: the historical points, exam findings, and any diagnostic results supporting the discharge/admit diagnosis, lab results, radiology results, the need for further work-up and treatment in the hospital. Physician consultation: Wali Lee MD regarding admission, patient's condition, and will see patient in inpatient room, tomorrow. 04/04 15:30 Order name: Basic Metabolic Panel; Complete Time: 16:28 kdr 04/04 15:30 Order name: CBC with Diff; Complete Time: 16:28 kdr 04/04 15:30 Order name: LFT's; Complete Time: 16:28 kdr 04/04 15:30 Order name: Magnesium; Complete Time: 16:28 [facility] 04/04 15:30 Order name: NT PRO-BNP; Complete Time: 16:28 kdr 04/04 15:30 Order name: PT-INR; Complete Time: 16:28 kdr 04/04 15:30 Order name: Troponin (emerg Dept Use Only); Complete Time: 16:28 kdr 04/04 15:30 Order name: D-Dimer; Complete Time: 16:28 kdr 04/04 17:56 Order name: Basic Metabolic Panel [facility] 04/04 17:56 Order name: Basic Metabolic Panel [facility] 04/04 17:56 Order name: CBC with Automated Diff [facility] 04/04 17:56 Order name: CBC with Automated Diff [facility] 04/04 17:56 Order name: NT PRO-BNP [facility] 04/04 17:56 Order name: NT PRO-BNP [facility] 04/04 15:30 Order name: XRAY Chest (1 view); Complete Time: 16:28 kdr 04/04 15:30 Order name: EKG; Complete Time: 15:31 kdr 04/04 15:30 Order name: Cardiac monitoring; Complete Time: 15:50 kdr 04/04 15:30 Order name: EKG - Nurse/Tech; Complete Time: 15:53 kdr 04/04 15:30 Order name: IV Saline Lock; Complete Time: 15:50 [facility] 04/04 15:30 Order name: Labs collected and sent; Complete Time: 15:50 [facility] 04/04 15:30 Order name: O2 Per Protocol; Complete Time: 15:39 [facility] 04/04 15:30 Order name: CT Chest For PE Angio; Complete Time: 17:28 [facility] 04/04 15:30 Order name: US Extremity Venous W Compression Peng; Complete Time: 16:28 [facility] 04/04 17:56 Order name: Consistent Carb (ADA) [address] [facility] 04/04 17:56 Order name: Troponin I [facility] 04/04 17:56 Order name: Troponin I [facility] 04/04 17:56 Order name: Troponin I [facility] 04/04 17:56 Order name: Chest Single View [facility] 04/04 17:56 Order name: Chest Single View [facility] 04/04 15:30 Order name: O2 Sat Monitoring; Complete Time: 15:39 [facility] EC:31 Rate is 77 beats/min. Rhythm is regular, Sinus Rhythm with No ectopy, Right bundle kdr branch block. QRS [place]oster is Normal. ND interval is normal. QRS interval is normal. QT interval is normal. Clinical impression: NSR w/ Non-specific ST/T Changes. Administered Medications: 17:54 Drug: Lasix 40 mg Route: IVP; Site: right antecubital; bp 20:20 Follow up: Response: No adverse reaction; Blood pressure is lowered ca1 Disposition: 04/04/20 17:50 Hospitalization ordered by Wali Lee for Observation. Preliminary diagnosis are Shortness of breath, Unspecified systolic (congestive) heart failure. - Bed requested for Telemetry/MedSurg (observation). - Status is Observation. ca1 - Condition is Fair. - Problem is new. - Symptoms have improved. Signatures: Dispatcher [employer] EDWI Courtney Sethi RN RN kl Rittger, Kevin, MD MD kdr Peltier, Brian, RN RN bp Acob, Cheryl, RN RN ca1 Corrections: (The following items were deleted from the chart) 18:04 17:50 Hospitalization Ordered by Wali Lee MD for Observation. Preliminary diagnosis kl is Shortness of breath; Unspecified systolic (congestive) heart failure. Bed requested for Telemetry/MedSurg (observation). Status is Observation. Condition is Fair. Problem is new. Symptoms have improved. kdr 20:40 18:04 04/04/2020 17:50 Hospitalization Ordered by Wali Lee MD for Observation. ca1 Preliminary diagnosis is Shortness of breath; Unspecified systolic (congestive) heart failure. Bed requested for Telemetry/MedSurg (observation). Status is Observation. Condition is Fair. Problem is new. Symptoms have improved. kl
--- NOTE | 2020-04-04 17:51 | ER ---
Nurse's Notes [facility] [place], [place] Name: Keny Costa Age: 70 yrs Sex: Male : 1950 Arrival Date: 04/04/2020 Time: 14:57 Bed 19 Private MD: Diagnosis: Shortness of breath;Unspecified systolic (congestive) heart failure Presentation: 04/04 14:57 Chief complaint: EMS states: SOB x1 MONTH. Coronavirus screen: shortness of breath. bp Ebola Screen: No symptoms or risks identified at this time. Initial Sepsis Screen: Does the patient meet any 2 criteria? No. Patient's initial sepsis screen is negative. Does the patient have a suspected source of infection? No. Patient's initial sepsis screen is negative. Risk Assessment: Do you want to hurt yourself or someone else? Patient reports no desire to harm self or others. Onset of symptoms is unknown. Care prior to arrival: Glucose check: 259. 14:57 Acuity: GEOVANY 2 bp 14:57 Method Of Arrival: EMS: [facility] bp Triage Assessment: 15:01 General: Appears distressed, uncomfortable, obese, Behavior is cooperative, appropriate bp for age, anxious. Pain: Denies pain. EENT: No deficits noted. Neuro: No deficits noted. Cardiovascular: Rhythm is sinus rhythm. Respiratory: Reports shortness of breath Onset: The symptoms/episode began/occurred 1 MONTH AGO, the patient has mild shortness of breath. GI: No signs and/or symptoms were reported involving the gastrointestinal system. : No signs and/or symptoms were reported regarding the genitourinary system. Derm: No deficits noted. Musculoskeletal: No deficits noted. Historical: - Allergies: 15:01 PENICILLINS; bp - Home Meds: 15:01 atorvastatin 20 mg Oral tab 1 tab once daily [Active]; clopidogrel 75 mg Oral tab 1 tab bp once daily [Active]; gabapentin 300 mg Oral cap 1 cap four times a day [Active]; hydroxychloroquine 200 mg Oral tab 1 tab once daily [Active]; Invokamet 150-1,000 mg Oral tab 1 tab daily [Active]; lisinopril 20 mg Oral tab 1 tab once daily [Active]; metoprolol tartrate 25 mg Oral tab 1 tab once daily [Active]; Novolin 70/30 Innolet Sub-Q 40 units twice a day [Active]; oxybutynin chloride 5 mg Oral tab 1 tab 2 times per day [Active]; prednisone 2.5 mg Oral tab once daily [Active]; phenazopyridine 200 mg Oral tab [Active]; - PMHx: 15:01 Diabetes - NIDDM; High Cholesterol; Hypertension; Myocardial infarction; bp - Immunization history:: Adult Immunizations up to date. - Social history:: Smoking status: Patient denies any tobacco usage or history of. Screenin:03 Abuse screen: Denies threats or abuse. Denies injuries from another. Nutritional bp screening: No deficits noted. Tuberculosis screening: No symptoms or risk factors identified. Fall Risk None identified. Assessment: 15:03 General: SEE TRIAGE NOTE. Cardiovascular: Rhythm is sinus rhythm. Respiratory: Airway bp is patent Respiratory effort is even, unlabored, Breath sounds are coarse bilaterally. 16:42 Reassessment: PT RETURNED FROM CT. bp 17:40 Reassessment: ALL CURRENT ORDERS COMPLETED, MD AT B/S. bp 17:56 Reassessment: ADMIT INITIATED, PT HYPERTENSIVE ON MONITOR. bp 18:42 Reassessment: BED ASSIGNED, TRANSFER POSTPONED FOR SHIFT CHANGE AND HTN MANAGEMENT. PT bp HYPERTENSIVE ON MONITOR, MD INFORMED. 20:19 Reassessment: Patient appears in no apparent distress at this time. Patient is alert, ca1 oriented x 3, equal unlabored respirations, skin warm/dry/pink. 20:20 Reassessment: Called 4th floor, no answer. ca1 Vital Signs: 14:57 BP 200 / 100; Pulse 85; Resp 18; Temp 98.5; Pulse Ox 100% ; bp 15:02 BP 142 / 97; Pulse 84; Resp 16; Temp 98; Pulse Ox 95% ; bp 15:50 BP 198 / 92; Pulse 74; Resp 17; Pulse Ox 96% ; bp 16:41 BP 205 / 87; Pulse 69; Resp 16; Pulse Ox 96% ; bp 17:40 BP 209 / 98; Pulse 77; Resp 17; Pulse Ox 96% ; bp 17:56 BP 212 / 95; Pulse 88; Resp 17; Pulse Ox 95% ; bp 18:42 BP 207 / 92; Pulse 81; Resp 16; Pulse Ox 94% ; bp 19:14 BP 172 / 54; Pulse 100; Resp 16; Pulse Ox 95% on R/A; ca1 20:19 BP 168 / 59; Pulse 87; Resp 18 S; Pulse Ox 95% on R/A; ca1 ED Course: 14:57 Patient arrived in ED. bp 14:59 Triage completed. bp 15:02 Arm band placed on. bp 15:03 Patient has correct armband on for positive identification. Bed in low position. Call bp light in reach. Side rails up X2. 15:13 Jd Summers, RN is Primary Nurse. bp 15:14 Nikolai Moya MD is Attending Physician. kdr 15:50 Inserted saline lock: 20 gauge in right antecubital area, using aseptic technique. bp Blood collected. 15:53 US Extremity Venous W Compression Peng Sent. ca1 16:03 XRAY Chest (1 view) In Process Unspecified. EDMS 16:14 US Extremity Venous W Compression Peng In Process Unspecified. EDMS 16:36 CT Chest For PE Angio In Process Unspecified. EDMS 17:49 Wali Lee MD is Hospitalizing Provider. kdr 19:14 No provider procedures requiring assistance completed. Patient admitted, IV remains in ca1 place. Administered Medications: 17:54 Drug: Lasix 40 mg Route: IVP; Site: right antecubital; bp 20:20 Follow up: Response: No adverse reaction; Blood pressure is lowered ca1 Outcome: 17:50 Decision to Hospitalize by Provider. kdr 20:24 Admitted to Tele accompanied by tech, via wheelchair, room 401, with chart, Report ca1 called to ANDERSON Gastelum 20:24 Condition: stable 20:24 Instructed on the need for admit. 20:40 Patient left the ED. ca1 Signatures: Dispatcher [employer] EDMS Nikolai Moya MD MD kdr Jd Summers, ANDERSON RN bp Grecia Chiang RN RN ca1 Corrections: (The following items were deleted from the chart) 20:23 15:53 To radiology for Extrem Venous W Compression Peng+US.RAD.BRZ. bp ca1
[2020-04-04] MEDS ORDERED: ACETAMINOPHEN 500 MG TAB PO PRN (17:53)
[2020-04-04] MEDS ORDERED: FUROSEMIDE 40 MG/4 ML VIAL ONE (18:02)
[2020-04-04] MEDS: FUROSEMIDE 20 MG/ 2ML VIAL IV SCH (19:00)
[2020-04-04 21:39] VITALS: BMI 30.8
[2020-04-04] MEDS ORDERED: cloNIDine HCL 0.1 MG TAB PO PRN (22:17)
[2020-04-05] MEDS: GABAPENTIN 300 MG CAP PO SCH ×3 (00:40→13:29)
[2020-04-05 00:47] VITALS: TEMP 98.4
[2020-04-05 03:24] LABS: Absolute Lymphocytes (CBC) 1.1 K/uL (0.7-4.9); Basophils % 0.7 % (0-1.3); Hematocrit 43.4 % (39.6-49.0); Lymphocytes % 19.5 % (15.3-44.8); MPV 8.2 fL (7.6-11.3); RBC Red Blood Cell Count 4.98 M/uL (4.33-5.43)
[2020-04-05 03:38] LABS: Potassium 4.5 mmol/L (3.5-5.1)
[2020-04-05] MEDS ORDERED: D50W 25 GM/50 ML SYRINGE/VIAL IV PRN (06:56)
[2020-04-05] MEDS ORDERED: GLUCAGON 1 MG/VIAL IM PRN (06:56)
[2020-04-05] MEDS ORDERED: TRAMADOL HCL 50 MG TAB PO PRN (06:56)
[2020-04-05] MEDS ORDERED: HYDROCODONE/APAP 10/325 TAB PO PRN (06:56)
[2020-04-05 08:25] VITALS: BP 145/63
--- NOTE | 2020-04-05 08:45 | EKG ---
Test Date: 2020-04-04 Test Time: 16:18:55 Procedure Writer: NASIMA MEASUREMENT RESULTS: Intervals: Rate: 77 MI: 208 QRSD: 160 QT: 464 QTc: 525 Offerman: P: 89 MI: 208 QRS: 42 T: -8 INTERPRETIVE STATEMENTS: Normal sinus rhythm Right bundle branch block T wave abnormality, consider inferior ischemia Abnormal ECG Compared to ECG 11/26/2019 00:56:07 Ventricular premature complex(es) no longer present T-wave abnormality still present Possible ischemia still present Electronically Signed On 04-05-20 08:43:21 CDT by Sonny Menendez
--- NOTE | 2020-04-05 08:47 | RAD REPORT ---
EXAM DESCRIPTION: RAD - Chest Single View - 04/05/2020 6:45 am CLINICAL HISTORY: Chest Pain COMPARISON: Single-view chest April 04, CT chest April 04 TECHNIQUE: AP portable chest image was obtained 04/05/2020 6:45 am . FINDINGS: No new mass or consolidation. Chronic stranding at the right base noted. Heart size and va sculature are fractionally diminished from comparison. No measurable pleural effusion and no pneumoth orax. No acute bony abnormality seen. No acute aortic findings suspected. IMPRESSION: Mild CHF/volume overload pattern showing slight improvement from prior day studies.
[2020-04-05] MEDS ORDERED: CLOPIDOGREL 75 MG TABLET PO SCH (09:00)
[2020-04-05] MEDS ORDERED: GABAPENTIN 400 MG CAP PO SCH (09:00)
[2020-04-05] MEDS ORDERED: lisinopriL 20 MG TAB PO SCH (09:00)
[2020-04-05] MEDS ORDERED: HYDROXYCHLOROQUINE 200MG TAB PO SCH (09:00)
[2020-04-05] MEDS ORDERED: METOPROLOL XL 100 MG TAB PO SCH (09:00)
[2020-04-05] MEDS ORDERED: METFORMIN HCL 2000 MG PO SCH (09:00)
[2020-04-05] MEDS ORDERED: EZETIMIBE 10 MG TAB PO SCH (09:00)
[2020-04-05] MEDS: FUROSEMIDE 20 MG/ 2ML VIAL IV SCH (09:01)
[2020-04-05] MEDS: INSULIN 70/30 100 UNITS/ML SQ SCH ×2 (09:02→12:00)
--- NOTE | 2020-04-05 12:58 | P.SSS ---
Patient History Date of Service: 04/05/20 Reason for admission: DYSPNEA History of Present Illness: MR. GAYLE IS A DIABETIC WITH RA, COMES WITH ONE WEEK OF DYSPNEA. HE HAS NO CHEST PAIN. HE HAS KNOWN CAD WITH STENT. HE GOES LOCALLY FOR CAD. Allergies Penicillins Allergy (Severe, Verified 04/04/20 21:38) Itching/Hives/Rash Home Medications: Clopidogrel Bisulfate [Plavix] 75 mg PO DAILY 04/04/20 Ezetimibe [Zetia] 10 mg PO DAILY 04/04/20 Gabapentin [Neurontin] 600 mg PO TID 04/04/20 Hydrocodone Bit/Acetaminophen [Hydrocodon-Acetaminophn 10-325] 1 each PO Q6H PRN 04/04/20 Hydroxychloroquine [Plaquenil] 200 mg PO BID 04/04/20 Insulin 70/30 NPH/Reg Human [Novolin 70/30*] 30 unit SQ TID 04/04/20 Lisinopril [Zestril] 40 mg PO DAILY 04/04/20 Metformin HCl 2,000 mg PO DAILY 04/04/20 Metoprolol Succinate [Toprol Xl] 100 mg PO DAILY 04/04/20 Tamsulosin [Flomax] 0.4 mg PO BEDTIME 04/04/20 traMADol HCL [Ultram] 50 mg PO BID PRN 04/04/20 - Past Medical/Surgical History Has patient received pneumonia vaccine in the past: Yes Diabetic: Yes -: IDDM -: Hich Cholesterol -: HTN -: OK x3 -: heart stents -: leg stent -: Cancerous tumor removed from rt Kidney 4 years ago -: Bk Sx x2 - Family History Mother -: Hypertension, Diabetes, Stroke Father -: Heart disease, Lung disease, Cancer Notes: Lung Cancer - Social History Smoking Status: Former smoker Alcohol use: No CD- Drugs: No Caffeine use: No Place of Residence: Home Review of Systems 10-point ROS is otherwise unremarkable General: Weakness Physical Examination - Vital Signs Temperature: 98.4 F Blood Pressure: 145/63 Pulse: 64 Respirations: 16 Pulse Ox (%): 91 - Physical Exam General: Mild distress, Obese HEENT: Atraumatic, PERRLA, Mucous membr. moist/pink, EOMI, Sclerae nonicteric Neck: Supple, 2+ carotid pulse no bruit, No LAD, Without JVD or thyroid abnormality Respiratory: Clear to auscultation bilaterally, Normal air movement Cardiovascular: Regular rate/rhythm, Normal S1 S2 Gastrointestinal: Normal bowel sounds, No tenderness Musculoskeletal: No tenderness Integumentary: No rashes Neurological: Normal gait, Normal speech, Normal strength at 5/5 x4 extr, Normal tone, Normal affect Lymphatics: No axilla or inguinal lymphadenopathy - Studies Laboratory Data (last 24 hrs) 04/04/20 15:50: PT 11.5, INR 0.97 04/04/20 15:50: WBC 5.8, Hgb 14.3, Hct 42.3, Plt Count 172 04/04/20 15:50: Sodium 139, Potassium 4.5, BUN 24 H, Creatinine 1.18, Glucose 236 H, Magnesium 2.0, Total Bilirubin 0.4, AST 12 L, ALT 36, Alkaline Phosphatase 83 - Diagnosis (Problem(s)) (1) Diastolic CHF, acute Current Visit: Yes Status: Acute Plan: HE SAYS HIS DIET DOES NOT HAVE MUCH SALT. CONTINUE LASIX PO WILL WATCH K. WILL FU WITH [employer]. PROGNOSIS GUARDED. SMOKING CESSATION ADVISED. 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
[2020-04-05 15:09] VITALS: O2SAT 93
--- NOTE | 2020-04-05 16:23 | CON ---
Date of Consultation: 04/05/2020 Chief Complaint: Shortness of breath. History Of Present Illness: This is a 70-year-old male with history of diabetes, hypertension, diast olic heart failure, coronary artery disease, presented with shortness of breath, orthopnea, lower ext remity edema, found to be in acute congestive heart failure exacerbation. He was diuresed and feelin g much better. Was evaluated and okay to discharge in the outpatient followup. Evaluation by elvia hahn, he is fully alert, awake, oriented x3 and capable of speaking full sentences. No shortness of estella ath. There is no orthopnea and no shortness of breath even on activities, walking around without pro blems. Past Medical History: As outlined above. There is no chest pain. Past Surgery History: As outlined above in HPI. Medications: Refer to reconciliation sheet for detailed list. Allergies: PENICILLIN. Social History: Does not smoke or drink. Does not use any drugs. Review of Systems: All systems reviewed and they were negative except for mentioned in the HPI. Physical Examination: Vital Signs: Temperature is 98.4, pulse is 64, breathing 16, blood pressure 141/65, saturating 93% o n room air. General: Pleasant elderly male, in no apparent distress. Head and Neck: Pupils are equal, reactive to light. Intact eye movements. No JVD. No cervical lym phadenopathy. Neck is supple. Thyroid is not enlarged. Lungs: Clear to auscultation bilaterally. No rhonchi, rales, or crackles. No accessory muscle use. Heart: Regular rate and rhythm. No extra sounds. Abdomen: Soft, nontender. Bowel sounds positive. No organomegaly. No masses or hernia. No rigidi ty or rebound. Extremities: No edema, clubbing, or cyanosis. Intact pulses. Skin: No rash. Neurologic: Alert, awake, oriented x3. No acute focal deficits appreciated. Investigations: Labs were reviewed. Assessment And Recommendations: Acute on chronic diastolic heart failure exacerbation. No chest kyle n. He is diuresed and doing much better now. Okay from my standpoint to be discharged and follow up as an outpatient and adjust diuretics as an outpatient. Thank you for the courtesy of this consultation. /KOLBYL Voice ID: [id number] Report ID: [id number]
[2020-04-05] MEDS ORDERED: TAMSULOSIN 0.4 MG SR CAP PO SCH (21:00)
[2020-04-05] MEDS ORDERED: METFORMIN HCL 500 MG TAB PO SCH (21:00)
== END 2020-04-05 16:52 | disposition home or self-care (01) ==
LOC: ER 14:54 → ERHOLD 17:55 → 4TH 20:25
PROVIDERS: ADMIT Internal Medicine; ATTEND Internal Medicine
DX: I11.0 Hypertensive heart disease with heart failure (principal); I50.33 Acute on chronic diastolic (congestive) heart failure; E11.9 Type 2 diabetes mellitus without complications; I25.10 Atherosclerotic heart disease of native coronary artery without angina pectoris; M06.9 Rheumatoid arthritis, unspecified; I25.2 Old myocardial infarction; E78.00 Pure hypercholesterolemia, unspecified; Z79.02 Long term (current) use of antithrombotics/antiplatelets; Z88.0 Allergy status to penicillin; Z86.73 Personal history of transient ischemic attack (TIA), and cerebral infarction without residual deficits; Z95.5 Presence of coronary angioplasty implant and graft; Z87.891 Personal history of nicotine dependence; Z82.49 Family history of ischemic heart disease and other diseases of the circulatory system; Z83.3 Family history of diabetes mellitus; Z80.9 Family history of malignant neoplasm, unspecified
CPT/HCPCS: 93005; 85025 ×2; 80048 ×2; 36415; 83735; 85610; 82947 ×2; 85379; 80076; 84484 ×3; 83880 ×2; 71275; 71045 ×2; 93970; 96374; 99285; Q9967; J1940 ×2; G0378 ×3; J1815

== ENCOUNTER 2020-06-19 15:28 | Inpatient (IN) | payer OTHER, BC ==
[2020-06-19] MEDS: PIPER/TAZO/NS 3.375gm 3.375 GM/100 ML BAG IVPB SCH ×3 (01:00→17:00)
[2020-06-19 16:01] LABS: Absolute Lymphocytes (CBC) 0.8 K/uL (0.7-4.9); Basophils % 0.8 % (0-1.3); Hematocrit 38.4 % (39.6-49.0); Lymphocytes % 7.8 % (15.3-44.8); MPV 8.5 fL (7.6-11.3); RBC Red Blood Cell Count 4.35 M/uL (4.33-5.43)
[2020-06-19] MEDS ORDERED: NA CHLORIDE 0.9% 500 ML ONE ×2 (16:06→16:27)
[2020-06-19 16:13] LABS: Protime INR 0.97
[2020-06-19 16:21] LABS: ALT/SGPT 17 U/L (12-78); AST/SGOT 9 U/L (15-37); Albumin 3.5 g/dL (3.4-5.0); Alkaline Phosphatase 84 U/L (45-117); BUN Blood Urea Nitrogen 42 mg/dL (7-18); Bicarbonate 23 mmol/L (21-32); Bilirubin Direct < 0.1 mg/dL (0-0.2); Bilirubin Total 0.4 mg/dL (0.2-1.0); Glucose Level 234 mg/dL (74-106); Potassium 4.6 mmol/L (3.5-5.1); Protein, Total 6.4 g/dL (6.4-8.2); Sodium Level 138 mmol/L (136-145)
[2020-06-19 16:22] LABS: CKMB Creatine Kinase MB 2.4 ng/mL (0.3-3.6)
[2020-06-19] MEDS ORDERED: CLINDAMYCIN 600MG/D5W 600 MG/50 ML BAG IV ONE (16:27)
[2020-06-19 16:38] LABS: Troponin (Emerg Dept Use Only) 0.03 ng/mL (0.0-0.045)
[2020-06-19] MEDS ORDERED: FENTANYL CITR 100 MCG/2 ML ONE (16:46)
[2020-06-19 16:54] LABS: Platelet Estimate ADEQ; White Blood Cell Scan OK (OK)
[2020-06-19 16:55] LABS: Blood Morphology Comment NOT SEEN (NOT SEEN)
[2020-06-19] MEDS ORDERED: PIPER/TAZO/NS 3.375gm 3.375 GM/100 ML BAG ONE (17:00)
--- NOTE | 2020-06-19 17:01 | RAD REPORT ---
EXAM DESCRIPTION: RAD - Chest Single View - 06/19/2020 4:23 pm CLINICAL HISTORY: CONGESTION COMPARISON: Portable April 05 TECHNIQUE: AP portable chest image was obtained 06/19/2020 4:23 pm . FINDINGS: No acute lung parenchymal process. Interstitial pattern matches comparison. Heart and vasc ulature are normal. No measurable pleural effusion and no pneumothorax. No acute bony abnormality see n. No acute aortic findings suspected. IMPRESSION: No acute cardiopulmonary process. No significant change from comparison study.
--- NOTE | 2020-06-19 17:05 | RAD REPORT ---
EXAM DESCRIPTION: RAD - Hand Right 3 View - 06/19/2020 4:23 pm CLINICAL HISTORY: infection ?osteo at 2,3 metacarpals;Pain COMPARISON: Hand Right 3 View dated 08/11/2018 FINDINGS: No fracture is identified. There is no dislocation or periosteal reaction noted. No acute or destructive bone process identifiable. No radiographic findings for osteomyelitis. Patient has IP joint space narrowing. Minimal spurring seen in the second and third DIP joints. No erosive or destr uctive components identified. No periarticular mass, calcification or suspicious soft tissue finding. IMPRESSION: IP joint degenerative changes are present as detailed. No acute or destructive finding to suspect osteomyelitis. No significant change from the July 2018 study.
--- NOTE | 2020-06-19 17:08 | ER ---
Nurse's Notes [facility] Name: Keny Costa Age: 70 yrs Sex: Male : 1950 Arrival Date: 06/19/2020 Time: 15:30 Bed 6 Private MD: Diagnosis: Cellulitis of right upper limb Presentation: 06/19 15:33 Chief complaint: EMS states: pt was at Dr. Lee's office, pt went in because he had a tw2 cut on his hand from 2 weeks ago, he was in office started feeling lethargic and slow with weakness, office staff noted hypotension, is afebrile, we noted bigeminy on EKG, we gave 200 ml NS, pt is sinus rhythm at last check, BGL 228, 100/50 bp , Hx: DM, Cardiac stents. Coronavirus screen: At this time, the client does not indicate any symptoms associated with coronavirus-19. Ebola Screen: Patient denies travel to an Ebola-affected area in the 21 days before illness onset. Initial Sepsis Screen: Does the patient meet any 2 criteria? No. Patient's initial sepsis screen is negative. Does the patient have a suspected source of infection? No. Patient's initial sepsis screen is negative. Risk Assessment: Do you want to hurt yourself or someone else? Patient reports no desire to harm self or others. Note Dr. Erwin notified. Onset of symptoms was June 19, 2020. 15:33 Method Of Arrival: EMS: [facility] tw2 15:33 Acuity: GEOVANY 2 tw2 Triage Assessment: 15:33 General: Appears in no apparent distress. well groomed, Behavior is calm, cooperative, tw2 appropriate for age. Pain: Complains of pain in right hand. Neuro: Level of Consciousness is awake, alert, obeys commands, Oriented to person, place, situation. 15:56 Cardiovascular: Patient's skin is warm and dry. Respiratory: Airway is patent tw2 Respiratory effort is even, unlabored, Respiratory pattern is regular, symmetrical. GI: No signs and/or symptoms were reported involving the gastrointestinal system. Abdomen is distended, non-distended. Derm: Reports increased redness and swelling noted to RIGHT hand. Musculoskeletal: Range of motion: intact in all extremities. Historical: - Allergies: 15:38 PENICILLINS; tw2 15:38 Ypagnaw-Vfe-Bjd Reductase Inhibitors ("aches"); tw2 - Home Meds: 16:05 amlodipine 5 mg tab 1 tab once daily [Active]; Anoro Ellipta 62.5-25 mcg/actuation tw2 inhalation dsdv 1 puff once daily [Active]; aspirin 81 mg oral TbEC 1 tab once daily [Active]; clopidogrel 75 mg Oral tab 1 tab once daily [Active]; clotrimazole-betamethasone 1-0.05 % Topical crea 2 times per day [Active]; ezetimibe oral 10 mg oral 1 tab once daily [Active]; furosemide 20 mg Oral tab 1 tab once daily [Active]; furosemide 40 mg Oral tab 1 tab once daily [Active]; gabapentin 600 mg oral tab 1 tab 3 times per day [Active]; hydroxychloroquine 200 mg oral tab 1 tab once daily [Active]; lisinopril 40 mg oral tab 1 tab once daily [Active]; Lotrisone 1-0.05 % topical crea 2 times per day [Active]; metformin 500 mg Oral Tb24 4 tabs once daily [Active]; methylprednisolone 4 mg Oral DsPk [Active]; metoprolol tartrate 100 mg oral tab 1 tab once daily [Active]; prednisone 1 mg oral tab 1 tabs once daily [Active]; tamsulosin 0.4 mg oral cp24 1 cap once daily [Active]; voltaren 1% gel transdermal, use topically qid prn [Active]; tramadol 50 mg Oral tab 1 tab BID, prn [Active]; - PMHx: 15:38 Diabetes - NIDDM; High Cholesterol; Hypertension; Myocardial infarction; tw2 16:05 Rheumatoid Arthritis; CAD; CHF; BPH; PVD; tw2 - PSHx: 15:38 cardiac stents; tw2 - Immunization history:: Adult Immunizations. - Social history:: Smoking status: Patient/guardian denies using alcohol, street drugs, The patient lives with family. - Family history:: not pertinent. Screenin:39 Abuse screen: Denies threats or abuse. Nutritional screening: No deficits noted. tw2 Tuberculosis screening: No symptoms or risk factors identified. Fall Risk Secondary diagnosis (15 points) impaired mobility. Assessment: 15:57 Reassessment: see triage assessment. tw2 16:33 Reassessment: Pt c/o pain to left hand, rated 7/10, ERP notified, see MAR for orders. jl7 17:30 Reassessment: Patient appears in no apparent distress at this time. No changes from tw2 previously documented assessment. Patient and/or family updated on plan of care and expected duration. Pain level reassessed. Patient is alert, oriented x 3, equal unlabored respirations, skin warm/dry/pink. 19:11 Reassessment: report received from Vanesa. patient is alert and oriented. vital signs rv stable. 20:40 Reassessment: Report called to receiving nurse. ea Vital Signs: 15:33 BP 103 / 39; Pulse 68; Resp 14; Temp 98.8(O); Pulse Ox 98% on R/A; Weight 104.33 kg tw2 (R); Height 6 ft. 0 in. (182.88 cm); 16:29 BP 111 / 49; Pulse 61; Resp 12; Pulse Ox 100% on R/A; tw2 16:35 Pain 6/10; tw2 17:30 BP 126 / 52; Pulse 68; Resp 17; Pulse Ox 100% on R/A; tw2 19:29 BP 117 / 45; Pulse 82; Resp 16; Pulse Ox 95% ; ea 20:41 BP 135 / 49; Pulse 92; Resp 18; Pulse Ox 95% ; ea 15:33 Body Mass Index 31.19 (104.33 kg, 182.88 cm) tw2 16:35 right hand tw2 ED Course: 15:30 Patient arrived in ED. tw2 15:31 Alonzo Erwin MD is Attending Physician. ma2 15:33 Placed in gown. Bed in low position. Side rails up X2. tester semiconductor packages on. Pulse ox on. tw2 NIBP on. 15:36 Triage completed. tw2 15:38 Arm band placed on. EKG completed in triage. Results shown to . tw2 15:47 Inserted saline lock: 20 gauge in right forearm, using aseptic technique. Blood tw2 collected. 15:56 Maintain EMS IV. Dressing intact. Site clean \\T\\ dry. Gauge \\T\\ site: 20 g LEFT FA. tw 2 16:05 Vanesa Vuong RN is Primary Nurse. tw2 16:18 XRAY Chest (1 view) In Process Unspecified. EDMS 16:18 Hand Right 3 View XRAY In Process Unspecified. EDMS 17:07 Wali Lee MD is Hospitalizing Provider. ma2 18:26 Awaiting: unsuccessful attempt to call report at this time. tw2 19:03 Report given to ANDERSON Sheth and ANDERSON Vallejo. tw2 20:40 No provider procedures requiring assistance completed. Patient admitted, IV remains in ea place. Administered Medications: 15:55 Drug: NS 0.9% 500 ml Route: IV; Rate: bolus; Site: left forearm; tw2 16:48 Follow up: Response: No adverse reaction; IV Status: Completed infusion; IV Intake: tw2 500ml 16:16 Drug: Clindamycin 600 mg Route: IVPB; Infused Over: 30 mins; Site: left forearm; tw2 16:45 Follow up: Response: No adverse reaction; IV Status: Completed infusion; IV Intake: [id number] 16:17 Drug: NS 0.9% 500 ml Route: IV; Rate: 1 bolus; Site: right forearm; tw2 17:13 Follow up: Response: No adverse reaction; IV Status: Completed infusion; IV Intake: tw2 500ml 16:35 Drug: fentaNYL (PF) 25 mcg {Note: RASS 0.} Route: IVP; Site: right forearm; tw2 17:30 Follow up: Response: No adverse reaction; Pain is decreased; RASS: Alert and Calm (0) tw2 16:58 Drug: Zosyn 3.375 grams Route: IVPB; Infused Over: 60 mins; Site: left forearm; tw2 18:02 Follow up: Response: No adverse reaction; IV Status: Completed infusion tw2 Intake: 16:45 IV: 50ml; Total: 50ml. tw2 16:48 IV: 500ml; Total: 550ml. tw2 17:13 IV: 500ml; Total: 1050ml. tw2 Outcome: 17:07 Decision to Hospitalize by Provider. ma2 20:40 Admitted to Med/surg accompanied by tech, room 206, with chart, Report called to Chas lewis RN 20:40 Condition: stable 20:40 Instructed on the need for admit, Demonstrated understanding of instructions. 21:33 Patient left the ED. rv Signatures: Dispatcher [employer] EDRI Vanesa Vuong RN RN tw2 Elisabet Lam RN RN jl7 Krishnamurthy, Genevieve, RN Alonzo Mathew ea, MD MD ma2 Suhail Alves RN RN rv Corrections: (The following items were deleted from the chart) 15:57 15:33 Neuro: Level of Consciousness is awake, alert, obeys commands, Oriented to tw2 person, place, situation, tw2
--- NOTE | 2020-06-19 17:08 | EDPHYS ---
Physician Documentation [facility] Name: Keny Costa Age: 70 yrs Sex: Male : 1950 Arrival Date: 06/19/2020 Time: 15:30 Bed 6 Private MD: ED Physician Alonzo Erwin HPI: 06/19 17:03 This 70 yrs old Male presents to ER via EMS with complaints of hypotensive, ma2 Altered Mental Status. 17:03 Onset: The symptoms/episode began/occurred gradually, 1 day(s) ago. Possible causes: ma2 sepsis. Associated signs and symptoms: Pertinent negatives: ataxia, chest pain, confusion, diaphoresis, diarrhea. Current symptoms: In the emergency department the patient's symptoms have improved. The patient has not experienced similar symptoms in the past. went to his pcp for righ hand infection. at the office he felt lightheaded and bp was 80/40, he was sweating.. given NS by ems syx improved . Historical: - Allergies: 15:38 PENICILLINS; tw2 15:38 Imihfth-Qqu-Ttf Reductase Inhibitors ("aches"); tw2 - Home Meds: 16:05 amlodipine 5 mg tab 1 tab once daily [Active]; Anoro Ellipta 62.5-25 mcg/actuation tw2 inhalation dsdv 1 puff once daily [Active]; aspirin 81 mg oral TbEC 1 tab once daily [Active]; clopidogrel 75 mg Oral tab 1 tab once daily [Active]; clotrimazole-betamethasone 1-0.05 % Topical crea 2 times per day [Active]; ezetimibe oral 10 mg oral 1 tab once daily [Active]; furosemide 20 mg Oral tab 1 tab once daily [Active]; furosemide 40 mg Oral tab 1 tab once daily [Active]; gabapentin 600 mg oral tab 1 tab 3 times per day [Active]; hydroxychloroquine 200 mg oral tab 1 tab once daily [Active]; lisinopril 40 mg oral tab 1 tab once daily [Active]; Lotrisone 1-0.05 % topical crea 2 times per day [Active]; metformin 500 mg Oral Tb24 4 tabs once daily [Active]; methylprednisolone 4 mg Oral DsPk [Active]; metoprolol tartrate 100 mg oral tab 1 tab once daily [Active]; prednisone 1 mg oral tab 1 tabs once daily [Active]; tamsulosin 0.4 mg oral cp24 1 cap once daily [Active]; voltaren 1% gel transdermal, use topically qid prn [Active]; tramadol 50 mg Oral tab 1 tab BID, prn [Active]; - PMHx: 15:38 Diabetes - NIDDM; High Cholesterol; Hypertension; Myocardial infarction; tw2 16:05 Rheumatoid Arthritis; CAD; CHF; BPH; PVD; tw2 - PSHx: 15:38 cardiac stents; tw2 - Immunization history:: Adult Immunizations. - Social history:: Smoking status: Patient/guardian denies using alcohol, street drugs, The patient lives with family. - Family history:: not pertinent. ROS: 17:03 Constitutional: Negative for fever, chills, and weight loss. ma2 17:03 All other systems are negative. Exam: 17:03 Constitutional: This is a well developed, well nourished patient who is awake, alert, ma2 and in no acute distress. Head/Face: Normocephalic, atraumatic. Eyes: Pupils equal round and reactive to light, extra-ocular motions intact. Lids and lashes normal. Conjunctiva and sclera are non-icteric and not injected. Cornea within normal limits. Periorbital areas with no swelling, redness, or edema. ENT: Nares patent. No nasal discharge, no septal abnormalities noted. Tympanic membranes are normal and external auditory canals are clear. Oropharynx with no redness, swelling, or masses, exudates, or evidence of obstruction, uvula midline. Mucous membranes moist. Neck: Trachea midline, no thyromegaly or masses palpated, and no cervical lymphadenopathy. Supple, full range of motion without nuchal rigidity, or vertebral point tenderness. No Meningismus. Chest/axilla: Normal chest wall appearance and motion. Nontender with no deformity. No lesions are appreciated. Cardiovascular: Regular rate and rhythm with a normal S1 and S2. No gallops, murmurs, or rubs. Normal PMI, no JVD. No pulse deficits. Respiratory: Lungs have equal breath sounds bilaterally, clear to auscultation and percussion. No rales, rhonchi or wheezes noted. No increased work of breathing, no retractions or nasal flaring. Abdomen/GI: Soft, non-tender, with normal bowel sounds. No distension or tympany. No guarding or rebound. No evidence of tenderness throughout. Back: No spinal tenderness. No costovertebral tenderness. Full range of motion. Skin: Warm, dry with normal turgor. Normal color with no rashes, no lesions, and no evidence of cellulitis. MS/ Extremity: dorsal aspect of right hand shows area of redness and warmth, over metacarpals 2nd and 3rd, area measure 2x2 cm, there is minimal swelling, yet no effusions or flucteuence no signs of tenosynovitis, fingers are not swollen, or tender, passive movement of fingers are on tender. Pulses equal, no cyanosis. Neurovascular intact. Full, normal range of motion. Neuro: Awake and alert, GCS 15, oriented to person, place, time, and situation. Cranial nerves II-XII grossly intact. Motor strength 5/5 in all extremities. Sensory grossly intact. Cerebellar exam normal. Normal gait. Vital Signs: 15:33 BP 103 / 39; Pulse 68; Resp 14; Temp 98.8(O); Pulse Ox 98% on R/A; Weight 104.33 kg tw2 (R); Height 6 ft. 0 in. (182.88 cm); 16:29 BP 111 / 49; Pulse 61; Resp 12; Pulse Ox 100% on R/A; tw2 16:35 Pain 6/10; tw2 17:30 BP 126 / 52; Pulse 68; Resp 17; Pulse Ox 100% on R/A; tw2 19:29 BP 117 / 45; Pulse 82; Resp 16; Pulse Ox 95% ; ea 20:41 BP 135 / 49; Pulse 92; Resp 18; Pulse Ox 95% ; ea 15:33 Body Mass Index 31.19 (104.33 kg, 182.88 cm) tw2 16:35 right hand tw2 MDM: 15:31 Patient medically screened. ma2 17:03 Differential Diagnosis: pneumonia, sepsis, UTI, volume depletion. Data reviewed: vital ma2 signs, nurses notes. Counseling: I had a detailed discussion with the patient and/or guardian regarding: the historical points, exam findings, and any diagnostic results supporting the discharge/admit diagnosis, the presence of at least one elevated blood pressure reading (>120/80) during this emergency department visit, the need for further work-up and treatment in the hospital. Response to treatment: the patient's symptoms have markedly improved after treatment. 17:08 ED course: dr. charles aaron. wi2 06/19 15:32 Order name: Basic Metabolic Panel; Complete Time: 16:29 wi2 06/19 15:32 Order name: CBC with Diff wi2 06/19 15:32 Order name: LFT's wi2 06/19 15:32 Order name: Magnesium wi2 06/19 15:32 Order name: NT PRO-BNP wi2 06/19 15:32 Order name: PT-INR wi2 06/19 15:32 Order name: Troponin (emerg Dept Use Only) wi2 06/19 15:32 Order name: Amylase, Serum wi2 06/19 15:32 Order name: Blood Culture Adult (2) wi2 06/19 15:32 Order name: Ckmb wi2 06/19 15:32 Order name: CPK wi2 06/19 15:32 Order name: Lactate wi2 06/19 15:32 Order name: Lipase wi2 06/19 15:32 Order name: Procalcitonin wi2 06/19 15:32 Order name: Ptt, Activated wi2 06/19 15:32 Order name: Urine Microscopic Only wi2 06/19 16:02 Order name: Glucose, Ancillary Testing; Complete Time: 16:29 EDMS 06/19 16:06 Order name: CBC with Automated Diff EDMS 06/19 16:10 Order name: PTT, Activated Partial Thromb; Complete Time: 16:29 EDMS 06/19 16:17 Order name: Protime (+INR); Complete Time: 16:29 EDMS 06/19 16:21 Order name: Liver (Hepatic) Function; Complete Time: 16:29 EDMS 06/19 16:21 Order name: Magnesium; Complete Time: 16:29 EDMS 06/19 16:21 Order name: Lactate; Complete Time: 16:29 EDMS 06/19 16:22 Order name: Creatine Phosphokinase; Complete Time: 16:29 EDMS 06/19 16:22 Order name: CKMB Creatine Kinase MB; Complete Time: 16:29 EDMS 06/19 16:22 Order name: Lipase; Complete Time: 16:29 EDMS 06/19 16:38 Order name: Troponin (Emerg Dept Use Only); Complete Time: 16:39 EDMS 06/19 16:38 Order name: NT PRO-BNP; Complete Time: 16:39 EDMS 06/19 16:38 Order name: Amylase; Complete Time: 16:39 EDMS 06/19 17:16 Order name: Procalcitonin EDMS 06/19 15:32 Order name: XRAY Chest (1 view) wi2 06/19 15:32 Order name: EKG; Complete Time: 15:33 ma2 06/19 15:32 Order name: Cardiac monitoring; Complete Time: 15:43 ma2 06/19 15:32 Order name: EKG - Nurse/Tech; Complete Time: 15:43 ma2 06/19 15:32 Order name: IV Saline Lock; Complete Time: 15:55 ma2 06/19 15:32 Order name: Labs collected and sent; Complete Time: 15:55 ma2 06/19 15:32 Order name: O2 Per Protocol; Complete Time: 15:55 ma2 06/19 15:32 Order name: O2 Sat Monitoring; Complete Time: 15:55 ma2 06/19 15:32 Order name: Accucheck; Complete Time: 15:55 ma2 06/19 15:32 Order name: IV Saline Lock - Large Bore; Complete Time: 15:55 ma2 06/19 15:59 Order name: Hand Right 3 View XRAY wi2 06/19 18:04 Order name: CONS Pharmacy Consult [facility] 06/19 18:04 Order name: [facility] 06/19 18:04 Order name: Basic Metabolic Panel [facility] 06/19 18:04 Order name: Basic Metabolic Panel [facility] 06/19 18:04 Order name: CBC with Automated Diff [facility] 06/19 18:04 Order name: CBC with Automated Diff EDMS Administered Medications: 15:55 Drug: NS 0.9% 500 ml Route: IV; Rate: bolus; Site: left forearm; tw2 16:48 Follow up: Response: No adverse reaction; IV Status: Completed infusion; IV Intake: tw2 500ml 16:16 Drug: Clindamycin 600 mg Route: IVPB; Infused Over: 30 mins; Site: left forearm; tw2 16:45 Follow up: Response: No adverse reaction; IV Status: Completed infusion; IV Intake: [id number] 16:17 Drug: NS 0.9% 500 ml Route: IV; Rate: 1 bolus; Site: right forearm; tw2 17:13 Follow up: Response: No adverse reaction; IV Status: Completed infusion; IV Intake: tw2 500ml 16:35 Drug: fentaNYL (PF) 25 mcg {Note: RASS 0.} Route: IVP; Site: right forearm; tw2 17:30 Follow up: Response: No adverse reaction; Pain is decreased; RASS: Alert and Calm (0) tw2 16:58 Drug: Zosyn 3.375 grams Route: IVPB; Infused Over: 60 mins; Site: left forearm; tw2 18:02 Follow up: Response: No adverse reaction; IV Status: Completed infusion tw2 Disposition: 06/19/20 17:07 Hospitalization ordered by Wali Lee for Observation. Preliminary diagnosis is Cellulitis of right upper limb. - Bed requested for Telemetry/MedSurg (observation). - Status is Observation. rv - Condition is Stable. - Problem is new. - Symptoms are unchanged. Signatures: Dispatcher [employer] [facility] Mary Gonsalez Tara, ANDERSON RN 2 Alonzo Erwin MD MD wi2 Suhail Alves RN RN rv Corrections: (The following items were deleted from the chart) 18:12 17:07 Hospitalization Ordered by Wali Lee MD for Observation. Preliminary diagnosis bd is Cellulitis of right upper limb. Bed requested for Telemetry/MedSurg (observation). Status is Observation. Condition is Stable. Problem is new. Symptoms are unchanged. [facility] 21:33 18:12 06/19/2020 17:07 Hospitalization Ordered by Wali Lee MD for Observation. rv Preliminary diagnosis is Cellulitis of right upper limb. Bed requested for Telemetry/MedSurg (observation). Status is Observation. Condition is Stable. Problem is new. Symptoms are unchanged. bd
[2020-06-19] MEDS ORDERED: PIPER/TAZO/NS 3.375gm 3.375 GM/100 ML BAG IVPB SCH (18:00)
--- OUTSIDE RECORDS SUMMARY | 2020-06-19 18:43 | XMS REPORT | Continuity of Care Document ---
:1950 Author Organization [employer] Care Team Providers Name Role Phone [facility] Unavailable Un available Problems Problem Status Onset Classification Date Comments Sour e Date Reported N28.89 - OTHER Active 05/23/20 OP ID SPECIFIED 20 [place] DISORDERS OF K UNK Active 01/03/[address] 17 RENAL MASS Active 01/03/20 [facility] ast 17 D41.01 - Active 11/22/19 [facility] NEOPLASM OF 17 [place] UNCERTAIN BEHAVIOR Diabetes Active Problem 06/14/2020 Medica l mellitus Group, (disorder) [facility] , OPID [place] Hypertensive Active Problem 06/14/2020 Med ical disorder, Group, systemic [place], arterial [facility] (disorder) [place] Renal mass Active Problem 06/14/2020 Medic al (finding) Group,[facility] OPID [place] Lower urinary Active Problem 06/14/2020 Me dical tract symptoms Group , (finding) [facility] [place] Myocardial Resolved Problem 06/14/2020 Medic al infarction Group, (disorder) [facility] OPID [place] Simple obesity Active Problem 06/14/2020 M edical (disorder) Group, [facility] [place] NEOPLASM OF Active [facility] UNCERTAIN BEHAVIOR OF RIGHT OTHER SPECIFIED Active [place] DISORDERS OF KIDNEY AND Medications Medication Details Route Status Patient Ordering Order Source Instructions Provider Date Ciprofloxacin 500 500 mg = 1 Active 05/25[facility] MG Oral Tablet tab, PO, Q12H, 2019 [facility] [Cipro] X 10 day, # 20 tab, 0 Refill(s), Pharmacy: [id number], 182.88, cm, 05/21/20 9:23:00 [employer], Height, 106.818, kg, 05/21/20 9:23:00 [employer], Weight insulin detemir Notes: Same as Inactive 01/31[facility] Levemir Do not [address] [place] [address] hold insulin without contacting prescriber WASTE: F/P - Black; E - Municipal Trash Bin "single patient use only" acetaminophen Notes: Max Inactive acetaminophen 2016 [facility] 4000 mg/day (4 gm/day). (Same as: Tylenol [...] not Inactive tablet, enteric crush or chew. 2016 [place] coated (Same As: Ecotrin) sennosides, LONG TERM Notes: (Same Inactive as: Senokot) 2016 Prednisone Notes: Take Inactive with food. 2016 tamsulosin Notes: (Same Inactive As: Flomax) 2016 "Do Not Crush" Cefazolin Notes: Same Inactive as: Ancef 2016 Albuterol 0.83 2.49 mg, Inactive MG/ML Inhalant Route: NEB, 2016 [facility] Solution Q20Min, Dosing Weight 106.165, kg, PRN Wheezing, Priority: STAT, Start date: 01/29/17 21:17:00 CDT, Duration: 30 day, Stop date: 02/28/17 21:16:00 CDT Diphenhydramine 12.5 mg, Inactive Route: IVP, 2016 [facility] Drug form: INJ, Q6H, Dosing Weight 106.165, kg, PRN Itching, Start date: 01/29/17 21:17:00 CDT, Duration: 30 day, Stop date: 02/28/17 21:16:00 CDT Naloxone 0.4 mg, Route: Inactive IVP, Q2MIN, 2016 [facility] Dosing Weight 106.165, kg, PRN Narcotic Reversal, Start date: 01/29/17 21:17:00 CDT, Duration: 8 doses or times, Stop date: Limited # of times Meperidine 12.5 mg, Inactive Route: IVP, 2016 [facility] Q30Min, Dosing Weight 106.165, kg, PRN Other -See Comment, For shivering, Start date: 01/29/17 21:17:00 CDT, Duration: 2 doses or times, Stop date: Limited # of times Ondansetron 4 mg, Route: Inactive IVP, ONCE, 2016 [facility] Dosing Weight 106.165, kg, PRN Nausea & Vomiting, Start date: 01/29/17 21:17:00 CDT Promethazine 6.25 mg, Inactive Route: IVPB, 2016 [facility] ONCE, Dosing Weight 106.165, kg, PRN Nausea & Vomiting, Start date: 01/29/17 21:17:00 CDT Flumazenil 0.2 mg, Route: Inactive IVP, PRN, 2016 [facility] Dosing Weight 106.165, kg, PRN Benzodiazepine Reversal, Initial dose, Start date: 01/29/17 21:17:00 CDT, Duration: 30 day, Stop date: 02/28/17 21:16:00 CDT Hydromorphone 0.5 mg, Route: Inactive IVP, Q5Min, 2016 [facility] Dosing Weight 106.165, kg, PRN Pain Score 7-10, Start date: 01/29/17 21:17:00 CDT, Duration: 4 doses or times, Stop date: Limited # of times Oxycodone 5 mg, Route: Inactive PO, Drug form: 2016 [facility] TAB, Q4H, Dosing Weight 106.165, kg, PRN Pain Score 4-6, Start date: 01/29/17 21:17:00 CDT, Duration: 30 day, Stop date: 02/28/17 21:16:00 CDT Acetaminophen 1,000 mg, Inactive Route: PO, 2016 [facility] Drug form: TAB, ONCE, Dosing Weight 106.165, kg, PRN Pain Score 1-3, Start date: 01/29/17 21:17:00 CDT, Duration: 1 doses or times, Stop date: Limited # of times esmolol 10 mg, Route: Inactive IVP, Q5Min, 2016 [facility] Dosing Weight 106.165, kg, PRN Other -See Comment, Start date: 01/29/17 21:17:00 CDT, Duration: 5 doses or times, Stop date: Limited # of times Labetalol 10 mg, Route: Inactive IVP, Q5Min, 2016 [facility] Dosing Weight 106.165, kg, PRN Elevated BP, Start date: 01/29/17 21:17:00 CDT, Duration: 5 doses or times, Stop date: Limited # of times Hydralazine 10 mg, Route: Inactive IVP, Q20Min, 2016 [facility] Dosing Weight 106.165, kg, PRN Elevated [...] Route: IV, Inactive (ANES) Drug form: 2016 [facility] INJ, ONCE, Stop date: 01/29/17 21:06:00 CDT neostigmine (ANES) Route: IV, Inactive 01/30/ M H Drug form: 2016 [facility] INJ, ONCE, Stop date: 01/29/17 21:06:00 CDT glycopyrrolate Route: IV, Inactive (ANES) Drug form: 2016 [facility] INJ, ONCE, Stop date: 01/29/17 21:06:00 CDT ondansetron (ANES) Route: IV, Inactive 07/21/ M H Drug form: 2016 [facility] INJ, ONCE, Stop date: 01/29/17 20:59:00 CDT ceFAZolin (ANES) Route: IV, Inactive Drug form: 2016 [facility] INJ, ONCE, Stop date: 01/29/17 20:44:00 CDT mannitol 25% Route: IV, Inactive intravenous Drug form: 2016 [facility] solution (ANES) INJ, ONCE, Stop date: 01/29/17 19:54:00 CDT phenylephrine Route: IV, Inactive (ANES) Drug form: 2016 [facility] INJ, ONCE, Stop date: 01/29/17 19:03:00 CDT Hextend (ANES) Route: IV, Inactive (ANES) Drug Form: 2016 [facility] INJ, Start date: 01/29/17 18:46:00 CDT, Stop date: 01/29/17 19:46:00 CDT ceFAZolin (ANES) Route: IV, Inactive (ANES) Drug form: 2016 [facility] INJ, Start date: 01/29/17 17:14:00 CDT, Stop date: 01/29/17 18:14:00 CDT Docusate Notes: (Same No Longer as: Colace) Active 2016 [facility] (Do Not Crush) rocuronium (ANES) Route: IV, Inactive Drug form: 2016 [facility] INJ, ONCE, Stop date: 01/29/17 16:53:00 CDT fentaNYL (ANES) Route: IV, Inactive Drug form: 2016 [facility] INJ, ONCE, Stop date: 01/29/17 16:33:00 CDT ceFAZolin (ANES) Route: IV, Inactive Drug form: 2016 [facility] INJ, ONCE, Stop date: 01/29/17 15:23:00 CDT acetaminophen Route: IV, Inactive (ANES) (ANES) Drug form: [address] [facility] [address] INJ, Start date: 01/29/17 15:22:00 CDT, Stop date: 01/29/17 16:22:00 CDT propofol (ANES) Route: IV, Inactive Drug form: 2016 [facility] INJ, ONCE, Stop date: 01/29/17 15:07:00 CDT lidocaine (ANES) Route: IV, Inactive Drug form: 2016 [facility] INJ, ONCE, Stop date: 01/29/17 15:07:00 CDT fentaNYL (ANES) Route: IV, Inactive Drug form: 2016 [facility] INJ, ONCE, Stop date: 01/29/17 15:07:00 CDT rocuronium (ANES) Route: IV, Inactive Drug form: 2016 [facility] INJ, ONCE, Stop date: 01/29/17 15:07:00 CDT midazolam (ANES) Route: IV, Inactive Drug form: 2016 [facility] SOLN, ONCE, Stop date: 01/29/17 14:47:00 CDT sodium chloride Route: IV, Inactive 0.9% 1000 ml INJ Total Volume: 2016 [place] (ANES) 1,000, Start date: 01/29/17 14:01:00 CDT, Stop date: 01/29/17 15:01:00 CDT LR 1000 mL INJ Route: IV, Inactive (ANES) Total Volume: 2016 [facility] 1,000, Start date: 01/29/17 13:53:00 CDT, Stop date: 01/29/17 14:53:00 CDT gabapentin 300 MG Notes: (Same No Longer Oral Capsule as: Neurontin) Active 2016 [place] Acetaminophen 10 Notes: Infuse No Longer MG/ML Injectable over 15 Active [address] [facility] [address] Solution minutes Do not exceed 4gm/day of acetaminophen MEDICATION WASTE Product Size: 1000 mg Product Wasted: ___ mg Insulin regular 6 unit, Route: Inactive IV, ONCE, 2016 [facility] Dosing Weight 106.165, kg, Start date: 01/29/17 11:51:00 CDT, Stop date: 01/29/17 11:51:00 CDT Insulin, Aspart, Notes: Roll in No Longer Human palms of hands Active 2016 [facility] gently; Do not shake vigorously. (Same as: NovoLOG) "single patient use only" WASTE: F/P - Black; E - Municipal Trash Bin Stable for 28 days at room temperature. Expires in days from Date Dextrose 50% 12.5 gm, 25 No Longer Syringe mL, Route: Active 2016 [facility] IVP, Drug Form: INJ, Dosing Weight 106.165, kg, PRN, PRN Blood Glucose Results, Start date: 01/29/17 11:43:00 CDT, Duration: 30 day, Stop date: 02/28/17 11:42:00 CDT Glucagon 1 mg, Route: No Longer IM, Drug form: Active 2016 [facility] PDR/INJ, PRN, Dosing Weight 106.165, kg, PRN Blood Glucose Results, Start date: 01/29/17 11:43:00 CDT, Duration: 30 day, Stop date: 02/28/17 11:42:00 CDT Hydralazine Notes: (Same No Longer as: Active 2016 [facility] Apresoline) Push over 5 minutes D5NS 1,000 mL 1,000 mL, No Longer Rate: 100 Active 2016 [facility] ml/hr, Infuse over: 10 hr, Route: IV, Dosing Weight 106.165 kg, Total Volume: 1,000, Start date: 01/29/17 11:39:00 CDT, Duration: 30 day, Stop date: 02/28/17 11:38:00 CDT Ondansetron Notes: (Same No Longer as: Zofran) Active 2016 [facility] MEDICATION WASTE Product Size: 4 mg Product Wasted: ___ mg tramadol Notes: Not to No Longer hydrochloride 50 exceed Active [facility] Oral Tablet 400mg/day. (Same As: Ultram) Dilaudid 0.5 mg, 0.5 No Longer mL, Route: Active 2016 [facility] IVP, Drug form: INJ, Q4H, Dosing Weight 106.165, kg, PRN Pain Score 7-10, Start date: 01/29/17 11:39:00 CDT, Duration: 30 day, Stop date: 02/28/17 11:38:00 CDT Dilaudid 0.5 mg, Route: Inactive IVP, Q4H, 2016 [facility] Dosing Weight 106.165, kg, PRN Pain Score 7-10, Start date: 01/29/17 11:38:00 CDT, Duration: 30 day, Stop date: 02/28/17 11:37:00 CDT Albuterol 0.833 3 mL, Route: Inactive MG/ML / NEB, Dosing 2016 [facility] Ipratropium Weight [place] 0.167 106.165, kg, MG/ML Inhalant ONCE, STAT, Solution Start date: 01/29/17 11:22:00 CDT, Stop date: 01/29/17 11:22:00 CDT Calcium Chloride 1,000 mL, Inactive 0.0014 MEQ/ML / Rate: 25 2016 [facility] Potassium Chloride ml/hr, Infuse 0.004 MEQ/ML / over: 40 hr, Sodium Chloride Route: IV, 0.103 MEQ/ML / Dosing Weight Sodium Lactate 106.165 kg, 0.028 MEQ/ML Total Volume: Injectable 1,000, Start Solution date: 01/29/17 11:22:00 CDT, Duration: 30 day, Stop date: 02/28/17 11:21:00 CDT Mannitol Notes: (Same No Longer as: Osmitrol) Active 2016 Infuse through 5 micron or smaller filter [...] tab, PO, Active oral tablet Daily, 0 2016 Refill(s) Vitamin D2 See Active Instructions, 2016 PO, 0 Refill(s) gabapentin 300 MG 300 mg = 1 Active Oral Capsule cap, PO, TID, 2016 [facility] 0 Refill(s) predniSONE 2.5 mg 2.5 mg = 1 Active oral tablet tab, PO, 2016 Daily, 0 Refill(s) NovoLIN 70/30 See Active Instructions, 2017 [place] SUB-Q, 0 Refill(s) atorvastatin 80 mg 80 mg = 1 tab, Active oral tablet PO, Daily, 0 [address] [facility] [address] Refill(s) canagliflozin 150 See Active MG / Metformin Instructions, 2017 [place] hydrochloride 1000 1 tab PO, 0 MG Oral Tablet Refill(s) [Invokamet] metoprolol 50 mg 50 mg = 1 tab, Active oral tablet, PO, Daily, # 2017 [facility] ast extended release 30 tab, 0 Refill(s) Hydroxychloroquine 200 mg = 1 Active Sulfate 200 MG tab, PO, 2017 [facility] Daily, 0 Refill(s) clopidogrel 75 mg 75 mg = 1 tab, Active oral tablet PO, Daily, # [address] [facility] [address] 30 tab, 0 Refill(s) lisinopril 40 mg 40 mg = 1 tab, Active oral tablet PO, Daily, # [address] [facility] [address] 30 tab, 0 Refill(s) Allergies, Adverse Reactions, Alerts Substance Category Reaction Severity Reaction Status Date Comments S ource type Reported penicillins Assertion Drug Active allergy Medical Group Immunizations No Data Provided for This Section Results Order Name Results Value Reference Date Interpretation Comments [place] rce Range ELECTROLYT AGAP 11.6 10.0 - 01/30 ES 20.0 [place] ELECTROLYT eGFR 51 01/30 Result Comment: The [facility] eGFR is calculated using the CKD-EPI [...] ELECTROLYT CO2 26 24 - 32 01/30 [facility] ELECTROLYT Calcium Lvl 7.9 8.5 - 10.5 01/30 [facility] ELECTROLYT Glucose Lvl 235 70 - 99 01/30 [facility] ELECTROLYT Sodium Lvl 139 135 - 145 01/30 [facility] ELECTROLYT Potassium 4.6 3.5 - 5.1 01/30 ES Lvl /2016 [facility] ELECTROLYT BUN 26 7 - 22 01/30 [facility] ELECTROLYT Creatinine 1.40 0.50 - 01/30 ES Lvl 1.40 /2016 [facility] ELECTROLYT Chloride Lvl 106 95 - 109 01/30 [facility] HEMATOLOGY Monocytes # 0.5 0.0 - 0.8 01/30 [facility] HEMATOLOGY Basophils 0.5 0.0 - 1.0 01/30 [facility] HEMATOLOGY Lymphocytes 0.6 1.0 - 5.5 01/30 /2016 [facility] HEMATOLOGY Segs-Bands # 4.9 1.5 - 8.1 01/30 [facility] HEMATOLOGY Monocytes 8.5 2.0 - 12.0 01/30 [facility] HEMATOLOGY Lymphocytes 9.4 20.0 - 01/30 40.0 [facility] HEMATOLOGY Segs 81.5 45.0 - 01/30 75.0 /2016 [facility] HEMATOLOGY Eosinophils 0.1 0.0 - 4.0 01/30 [facility] HEMATOLOGY MPV 8.2 7.4 - 10.4 01/30 [facility] HEMATOLOGY Platelet 143 133 - 450 01/30 [facility] HEMATOLOGY RDW 15.0 11.5 - 01/30 14.5 [facility] HEMATOLOGY MCHC 32.9 32.0 - 01/30 MH 36.0 [facility] HEMATOLOGY MCH 29.3 27.0 - 01/30 MH 31.0 [facility] HEMATOLOGY Hct 42.7 42.0 - 01/30 54.0 [facility] HEMATOLOGY MCV 89.1 80.0 - 01/30 94.0 [facility] HEMATOLOGY RBC 4.79 4.70 - 01/30 MH 6.10 [facility] HEMATOLOGY Hgb 14.0 14.0 - 01/30 MH 18.0 [facility] HEMATOLOGY WBC 6.0 3.7 - 10.4 01/30 [facility] HEMATOLOGY PTT 23.4 22.9 - 01/30 MH 35.8 /2017 [facility] BLOOD BANK RBC product Product available 1 01/29 Resul t RESULTS (01/29/17 11:41 AM) /2016 Comment: Richard sutherland 01/29/2017 11:42 [id number]
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 ast ELECTROLYT AGAP 10.7 10.0 - 01/21 ES 20.0 [place] ELECTROLYT eGFR 77 01/21 Result ES Comment: [facility] eGFR is calculated using the CKD-EPI [...] Calcium Lvl 8.9 8.5 - 10.5 01/21 ES /2016 [facility] ELECTROLYT BUN 26 7 - 22 01/21 ES /2016 [facility] ELECTROLYT Glucose Lvl 106 70 - 99 01/21 MH ES [facility] ELECTROLYT Potassium 4.7 3.5 - 5.1 01/21 ES Lvl /2016 [facility] ELECTROLYT Sodium Lvl 140 135 - 145 01/21 ES [facility] ELECTROLYT Creatinine 1.00 0.50 - 01/21 ES Lvl 1.40 /2016 [facility] ELECTROLYT CO2 26 24 - 32 01/21 MH ES [facility] ELECTROLYT Chloride Lvl 108 95 - 109 01/21 MH ES /2017 [facility] HEMATOLOGY Hgb 15.5 14.0 - 07 MH 18.0 /2017 [facility] HEMATOLOGY RBC 5.22 4.70 - 01/21 MH 6.10 /2017 [facility] HEMATOLOGY Hct 45.5 42.0 - 01/21 MH 54.0 /2017 [facility] HEMATOLOGY MCV 87.3 80.0 - 01/21 MH 94.0 /2016 [facility] HEMATOLOGY MCH 29.6 27.0 - 01/21 MH 31.0 /2016 [facility] HEMATOLOGY MCHC 34.0 32.0 - 07 MH 36.0 /2016 [facility] HEMATOLOGY RDW 15.0 11.5 - 07/ MH 14.5 /2016 [facility] HEMATOLOGY Platelet 177 133 - 450 07/ /2016 [facility] HEMATOLOGY MPV 7.9 7.4 - 10.4 01/21 /2016 [facility] HEMATOLOGY WBC 6.6 3.7 - 10.4 01/21 /2016 [facility] HEMATOLOGY INR 0.84 0.85 - 01/21 MH 1.17 /2016 [facility] HEMATOLOGY PT 11.7 12.0 - 01/21 14.7 /2016 [facility] HEMATOLOGY PTT 22.6 22.9 - 01/21 35.8 /2016 [facility] HEMATOLOGY Eosinophils 0.1 0.0 - 0.5 07/ MH # /2016 [facility] HEMATOLOGY Basophils # 0.1 0.0 - 0.2 01/21 /2016 [facility] HEMATOLOGY Eosinophils 1.8 0.0 - 4.0 01/21 /2016 [facility] HEMATOLOGY Segs-Bands # 4.8 1.5 - 8.1 01/21 /2016 [facility] HEMATOLOGY Basophils 0.9 0.0 - 1.0 01/21 /2016 [facility] HEMATOLOGY Lymphocytes 1.1 1.0 - 5.5 / MH # /2017 [facility] HEMATOLOGY Monocytes # 0.5 0.0 - 0.8 01/21 /2016 [facility] HEMATOLOGY Segs 73.2 45.0 - 01/21 MH 75.0 /2017 [facility] HEMATOLOGY Monocytes 7.7 2.0 - 12.0 01/21 /2016 [facility] HEMATOLOGY Lymphocytes 16.4 20.0 - 01/21 40.0 /2017 [facility] URINE AND UA <=1.0 0.1 - 1.0 01/21 STOOL Urobilinogen mg/dL /2016 [facility] URINE AND UA Sq Epi None Seen 01/21 STOOL /2016 [facility] URINE AND UA Blood Negative Negative 01/21 [facility] (01/21/17 2:48 PM) [place] URINE AND UA Color Elizabeth 01/21 STOOL [facility] URINE AND UA Glucose 500 mg/dL Negative 01/21 STOOL mg/dL [facility] URINE AND UA Ketones Negative Negative 01/21 STOOL mg/dL mg/dL [facility] URINE AND UA Bili Negative Negative 01/21 STOOL *NA* /2016 [place] (01/21/17 2:48 PM) URINE AND UA pH 5.0 5.0 - 8.0 01/21 STOOL [place] URINE AND UA Protein Negative Negative 01/21 STOOL mg/dL mg/dL /2016 [place] URINE AND UA WBC <1 0 - 5 01/21 STOOL [facility] URINE AND UA Nitrite Negative Negative 01/21 [facility] (01/21/17 2:48 PM) [place] URINE AND UA Leuk Est Negative Negative 01/21 [facility] (01/21/17 2:48 PM) [facility] RBC 2 0 - 2 01/21 [facility] URINE AND UA Spec Grav 1.023 <=1.030 01/21 STOOL [place] URINE AND UA Turbidity Marked Clear 01/21 STOOL *ABN* /2016 [place] (01/21/17 2:48 PM) Pathology Reports No Data Provided for This Section Diagnostic Reports Report Value Date Source Chest 2 views DX Patient Name: CLARENCE GAYLE 01/21/2017 [facility] : 1950; Age: 67 years Male MR: [id number] Study: Chest 2 views DX Order Time: 01/21/2017 2 :18 PM CDT CLINICAL INDICATION: Coughing - preop exam COMPARISON: None FINDINGS: Lines: None. Lungs: Linear atelectasis at the left lung base. No effusion, pneumothorax, focal consolidation. Mediastinum: The cardiac [place] is within normal limits of size. Midline trachea. Bones and soft tissues: No acute abnormalities. IMPRESSION: No acute cardiopulmonary abnormalities. SL: [id number] Abdomen w/wo IV PROCEDURE: ABDOMEN CT 12/01/2016 [facility] [place] [address] CLINICAL INDICATION: D41.01, N20.0, N41.0. [...] Signs Vital Sign Value Date Comments Source Systolic (mm Hg) 151 05/21/2020 [facility] Diastolic (mm Hg) 75 05/21/2020 [facility] Heart Rate 89 05/21/2020 [facility] Height 182.88 cm 05/21/2020 [facility] Weight 106.818 05/21/2020 [facility] BMI Calculated 31.94 05/21/2020 [facility] Heart Rate 91 01/30/2017 [place] Temperature Oral (F) 97.6 F 01/30/2017 [place] Systolic (mm Hg) 128 01/30/2017 [place] Diastolic (mm Hg) 73 01/30/[address] Respitory Rate 17 01/30/2017 [place] Temperature Oral (F) 98.3 F 01/30/2017 [place] Heart Rate 94 01/30/2017 [place] Respitory Rate 17 01/30/2017 [place] Systolic (mm Hg) 159 01/30/2017 [place] Diastolic (mm Hg) 86 01/30/[address] Systolic (mm Hg) 164 01/30/2017 [place] Diastolic (mm Hg) 87 01/30/[address] Heart Rate 96 01/30/2017 [place] Respitory Rate 17 01/30/2017 [facility] [place] Temperature Oral (F) 97.7 F 01/30/2017 [place] BMI Calculated 31.74 01/21/2017 [facility] Weight 106.165 01/21/2017 [facility] Height 182.88 cm 01/21/2017 [facility] Encounters Location Location Encounter Encounter Reason Attending ADM DC Stat us Source Details Type Number For Provider Date Date Visit [facility] Outpt Diag [id number] 12/01 [facility] 0 [facility] Observation [id number] 01/30 [place] 0 [place] [facility] [id number] Jacklyn 05[facility]21 [facility] [id number] Wali 05/21 05/22 Specialty 0 Medical [facility] Between [id number] 05/25 05/26 [facility] Outpatient [id number] NURSE 05/29 Active [facility] 1 [facility] Outpatient [id number] Wali 05/29 05/30 [facility] Time Share [facility] Outpt Diag [id number] 06/04 [facility]patient [facility] [place] Outpatient [id number] Jacklyn 06/12 Active [facility] [id number] NURSE 06/12 Active [facility] 3 VISIT [facility] Ambulatory [id number] Wali 06/12 06/12 [facility]rology Pre-Reg 2 [facility] Time Share [facility] Ambulatory [id number] Wali 06/12 06/12 [facility] Pre-Reg 3 [facility] Time Share Procedures Procedure Code Date Perfomer Comments Source Fusion [id number] [facility] [place] [place] Operation [id number] [facility], [facility] [place] Stent placement [id number] Medica l Group,[facility], [facility] [place] Assessment and Plan Assessment and Plan Date Source Extracted from:Title: Clinical Document 01/30/2017 [facility] Author: Santino Gage MD Date: 01/30/17 NEUROLOGY consult note [facility] Completed: Jan, 15:49 by Santino Gage MD [...] in the left anterolateral thigh region. Coordination [id number] is intact. Gait not tested. Deep tendon [...] 0.6 L Monocytes # 0.5 PTT 23.4 01/29 2116 Glucose POC 222 H 01/29 1901 Glucose POC 214 H Trevino still necessary (Yes/No): Line still martha villanueva (Yes/No): Vitals Tmp(F) Pulse BP RR SpO2 [...] Tot 1900 950 950 01/29 24hr Tot [phone] Medications (49) Active Scheduled Meds (14): 01/30/17 [...] Social History Date Source Social History TypeResponse 05/21/2020 [facility] Smoking Status Current every day smoker; Type: eCigaret jose; Exposure to Tobacco Smoke self; Cigarette Smoking Last 365 Days Yes; Reg Smoking Cessation Counseling No; Other Tobacco Frequency eCig; entered on: 05/21/20 Social History TypeResponse 05/21/2020 [facility] [place] Smoking Status Current every day smoker; Type: eCigaret jose; Exposure to Tobacco Smoke self; Cigarette Smoking Last 365 Days Yes; Reg Smoking Cessation Counseling No; Other Tobacco Frequency eCig; entered on: 05/21/20 Social History TypeResponse 01/29/2017 [place] Smoking Status Current every day smoker; Type: eCigaret jose; Exposure to Tobacco Smoke self; Other Tobacco Frequency eCig; Cigarette Smoking Last 365 Days Yes; Reg Smoking Cessation Counseling No Family History No Data Provided for This Section Advance Directives No Data Provided for This Section Functional Status No Data Provided for This Section
--- OUTSIDE RECORDS SUMMARY | 2020-06-19 18:44 | XMS REPORT | Summary of Care ---
:1950 Author Organization [facility] Address [address] [place] [address]- phone Encounter HQ Encntr_alisarah(FIN) [id number] Date(s): 05/29/20 - 05/29/20 [facility] [address] [place] [address]- [phone] Discharge Disposition: Home or Self Care Attending Physician: Jacklyn Donis MD Referring Physician: Wali Lee MD Vital Signs No data available for this section Problem List Condition Effective Dates Status Health Status Informant DM (diabetes mellitus)(Confirmed) Active HTN (hypertension)(Confirmed) Active Renal mass, right(Confirmed) Active Lower urinary tract symptoms Active (LUTS)(Confirmed) Heart attack(Confirmed) Resolved Simple obesity(Confirmed) Active Allergies, Adverse Reactions, Alerts Substance Reaction Severity Status penicillins Active Medications No data available for this section Results No data available for this section Immunizations No data available for this section Procedures Procedure Date Related Diagnosis Body Site Status Fusion Completed Operation Completed Stent placement Completed Social History Social History Type Response Smoking Status Current every day smoker; Ty pe: eCigarettes; Exposure to Tobacco Smoke self; Cigarette Smoking Last 365 Days Yes; Reg Smoking Cessation Counseling No; Other Tobacco Frequency eCig; entered on: 05/21/20 Assessment and Plan No data available for this section
--- OUTSIDE RECORDS SUMMARY | 2020-06-19 18:44 | XMS REPORT | Summary of Care ---
:1950 Author Organization [facility] Address [address] [place] [address]- phone Encounter HQ Encntr_alias(FIN) [id number] Date(s): 06/12/20 - 06/12/20 [facility] [address] [place] [address]- [phone] Attending Physician: Jacklyn Donis MD Referring Physician: [...]
--- OUTSIDE RECORDS SUMMARY | 2020-06-19 18:44 | XMS REPORT | Summary of Care ---
:1950 Author Organization [facility] Address [address] [place] [address]- phone Encounter HQ Encntr_alias(FIN) [phone] Date(s): 06/12/20 - 06/12/20 [facility] [address] [place] [address]- [phone] Attending Physician: VISIT, NURSE UATS Referring Physician: Wali Lee MD Vital Signs [...]
--- OUTSIDE RECORDS SUMMARY | 2020-06-19 18:44 | XMS REPORT | Summary of Care ---
:1950 Author Organization [facility] Address [address] [facility] [address] [place] [address]- Encounter HQ Valerientr_ronald(FIN) [id number] Date(s): 05/25/20 - 05/26/20 [facility] [place] [address] [place] [address]- [phone] Vital Signs No data available for this section Problem List Condition Effective Dates Status Health Status Informant DM (diabetes mellitus)(Confirmed) Active HTN (hypertension)(Confirmed) Active Renal mass, right(Confirmed) Active Lower urinary tract symptoms Active (LUTS)(Confirmed) Heart attack(Confirmed) Resolved Simple obesity(Confirmed) Active Allergies, Adverse Reactions, Alerts Substance Reaction Severity Status penicillins Active Medications Cipro 500 mg oral tablet 500 mg = 1 tab, PO, Q12H, X 10 day, # 20 tab, 0 Refill(s), Pharmacy: [id number], 182.88, cm, 05/21/20 9:23:00 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
--- OUTSIDE RECORDS SUMMARY | 2020-06-19 18:45 | XMS REPORT | Summary of Care ---
:1950 Author Organization [facility] Address [address] [place], [place] [address]- Encounter HQ Encntr_ronald(FIN) [phone] Date(s): 06/04/20 - 06/04/20 [facility] [address], [address] [place] [phone] Discharge Disposition: Home or Self Care Attending Physician: Jacklyn Donis MD Referring Physician: Jacklyn Donis MD Vital Signs No data available for [...]
--- OUTSIDE RECORDS SUMMARY | 2020-06-19 18:45 | XMS REPORT | Summary of Care ---
:1950 Author Organization [facility] Address [address], [place] [address]- Encounter HQ Sera(CHARAN) [phone] Date(s): 05/21/20 - 05/21/20 [facility] [address], [place] [address]- [place] Discharge Disposition: Home or Self Care Attending Physician: Jacklyn oDnis MD Referring Physician: Wali Lee MD Vital Signs Most recent to oldest [Reference Range]: 1 Height 182.88 cm (05/21/20 9:23 AM) Blood Pressure [90-140/60-90 mmHg] 151/75 mmHg *HI* (05/21/20 9:23 AM) Peripheral Pulse Rate [60-100 bpm] 89 bpm (05/21/20 9:23 AM) Weight 106.818 kg (05/21/20 9:23 AM) Body Mass Index 31.94 m2 (05/21/20 9:23 AM) Problem List Condition Effective Dates Status Health Status Informant DM (diabetes mellitus)(Confirmed) Active HTN (hypertension)(Confirmed) Active Renal mass, right(Confirmed) Active Lower urinary tract symptoms Active (LUTS)(Confirmed) Heart attack(Confirmed) Resolved Simple obesity(Confirmed) Active Allergies, Adverse Reactions, Alerts Substance Reaction Severity Status penicillins Active Medications No Known Medications Results No data available for this section [...]
[2020-06-19 22:18] VITALS: BMI 29.2
[2020-06-19] MEDS: INSULIN -REGULAR HUMAN 50 UNIT/0.5 ML ML SQ SCH (22:36)
[2020-06-19 23:57] LABS: Urine Appearance CLEAR; Urine Bilirubin NEGATIVE (NEG); Urine Blood NEGATIVE (NEG); Urine Color YELLOW; Urine Glucose 3+ (NEG); Urine Protein NEGATIVE (NEG); Urine Urobilinogen 0.2 mg/dL (0.2-1.0); Urine pH 5.5 (5.0-7.0)
[2020-06-20] MEDS ORDERED: PIPER/TAZO/NS 3.375gm 3.375 GM/100 ML BAG IVPB SCH
[2020-06-20 00:16] LABS: Urine Bacteria <20 /HPF (NONE SEEN); Urine RBC <5 /HPF (NONE SEEN)
[2020-06-20] MEDS: PIPER/TAZO/NS 3.375gm 3.375 GM/100 ML BAG IVPB SCH ×2 (01:00→09:54)
[2020-06-20] MEDS ORDERED: PIPER/TAZO/NS 3.375gm 3.375 GM/100 ML BAG ONE (01:26)
[2020-06-20 05:48] LABS: Absolute Lymphocytes (CBC) 0.9 K/uL (0.7-4.9); Basophils % 0.4 % (0-1.3); Hematocrit 37.3 % (39.6-49.0); Lymphocytes % 11.4 % (15.3-44.8); MPV 8.8 fL (7.6-11.3); Potassium 4.4 mmol/L (3.5-5.1); RBC Red Blood Cell Count 4.21 M/uL (4.33-5.43)
--- NOTE | 2020-06-20 07:15 | EKG ---
Test Date: 2020-06-19 Test Time: 15:32:03 Veterinary Epidemiologist: SHERI MEASUREMENT RESULTS: Intervals: Rate: 69 MN: 208 QRSD: 162 QT: 474 QTc: 507 [place]: P: 27 MN: 208 QRS: 40 T: -60 INTERPRETIVE STATEMENTS: Sinus rhythm with frequent premature ventricular complexes Right bundle branch block T wave abnormality, consider inferolateral ischemia Abnormal ECG Compared to ECG 04/04/2020 16:18:55 Ventricular premature complex(es) now present T-wave abnormality still present Possible ischemia still present Electronically Signed On 06-20-20 07:09:07 [facility] [employer] by Sonny Menendez
[2020-06-20] MEDS ORDERED: HYDROXYCHLOROQUINE 200 MG PO SCH (09:00)
[2020-06-20] MEDS ORDERED: METFORMIN HCL 500 MG PO SCH (09:00)
[2020-06-20] MEDS ORDERED: HOME MED 1 EA UNK (Gabapentin [Gabapentin] 600 MG Tablet) PO SCH (09:00)
[2020-06-20] MEDS ORDERED: EZETIMIBE 10 MG PO SCH (09:00)
[2020-06-20] MEDS ORDERED: INSULIN REGULAR HUMAN SQ SCH (09:00)
[2020-06-20] MEDS ORDERED: BETAMETHASONE DIPROPIONATE TP SCH (09:00)
[2020-06-20] MEDS ORDERED: INSULIN ISOPHANE HUMAN SQ SCH (09:00)
[2020-06-20] MEDS ORDERED: CLOTRIMAZOLE TP SCH (09:00)
[2020-06-20] MEDS ORDERED: [UNRECOGNIZED DRUG - OTHER] SQ SCH (09:00)
[2020-06-20] MEDS: lisinopriL 20 MG TAB PO SCH (09:29)
[2020-06-20] MEDS: METOPROLOL TAR 50 MG TAB PO SCH (09:29)
[2020-06-20] MEDS: INSULIN -REGULAR HUMAN 50 UNIT/0.5 ML ML SQ SCH ×4 (09:30→21:00)
[2020-06-20] MEDS: CLOPIDOGREL 75 MG TABLET PO SCH (09:31)
[2020-06-20] MEDS: VANCOMYCIN 1.75 GM in NA CHLORIDE 0.9% 500 ML IVPB SCH (09:54)
[2020-06-20] MEDS: TRAMADOL HCL 50 MG TAB PO PRN (10:05)
[2020-06-20 10:24] VITALS: O2SAT 97
[2020-06-20] MEDS: GABAPENTIN 300 MG CAP PO SCH ×3 (10:54→21:46)
[2020-06-20 14:03] LABS: MPV 8.8 fL (7.6-11.3)
[2020-06-20 16:35] LABS: Platelet Estimate ADEQ
[2020-06-20] MEDS: CODEINE 30MG/APAP 300MG TAB PO PRN (21:46)
[2020-06-21] MEDS: GABAPENTIN 300 MG CAP PO SCH ×2 (08:58→13:20)
[2020-06-21] MEDS: lisinopriL 20 MG TAB PO SCH (08:58)
[2020-06-21] MEDS: CLOPIDOGREL 75 MG TABLET PO SCH (08:59)
[2020-06-21] MEDS: TRAMADOL HCL 50 MG TAB PO PRN ×2 (08:59→17:52)
[2020-06-21] MEDS: INSULIN -REGULAR HUMAN 50 UNIT/0.5 ML ML SQ SCH ×3 (08:59→17:52)
[2020-06-21] MEDS: METOPROLOL TAR 50 MG TAB PO SCH (08:59)
[2020-06-21] MEDS ORDERED: ENOXAPARIN 40 MG/0.4 ML SQ SCH (09:00)
[2020-06-21] MEDS ORDERED: CEFEPIME 1 GM/VIAL IV SCH (09:00)
[2020-06-21] MEDS: VANCOMYCIN 1.75 GM in NA CHLORIDE 0.9% 500 ML IVPB SCH (09:05)
[2020-06-21] MEDS ORDERED: ALPRAZOLAM 0.25 MG TABLET PO PRN (09:19)
[2020-06-21] MEDS: CEFEPIME/SWI 1gm 10 ML IV SCH ×2 (10:49→17:52)
[2020-06-21] MEDS: CODEINE 30MG/APAP 300MG TAB PO PRN (13:20)
[2020-06-21 13:45] VITALS: TEMP 97.5
--- NOTE | 2020-06-21 14:23 | PN ---
06/20 Subjective: Mr. Costa yesterday's note was not done because he was supposed to go to [facility] and he did not. Mr. Costa is extremely uncomfortable with his hand pain, swelling and redness from the abscess or cellulitis in the region. Physically is stable otherwise. Objective: Vital Signs: Blood pressure 160/70, temperature 98.3. HEENT: No JVD. No carotid bruits. Chest: Clear. Heart: Regular. Assessment/plan: Severe infection of the hand in a diabetic, possible abscess. We do not have a hand surgeon, we are waiting for transfer to [place] for hand surgery. He may not need much I and D, but he is definitely going to need incision and drainage of what ever tense pus collection may have in this region. Prognosis is guarded. DEBI/SHAKA Voice ID: [id number] Report ID: [id number] DAVY
[2020-06-21 17:52] VITALS: BP 178/70
[2020-06-21] MEDS ORDERED: AMLODIPINE 5 MG TAB PO SCH (18:00)
--- NOTE | 2020-06-21 21:05 | P.DS ---
Admission Date: 06/21/20 Discharge Date: 06/21/20 Disposition: TRANSFER TO [facility] Discharge Condition: FAIR Brief History of Present Illness: MR. GAYLE CAME TO OFFICE BUT WAS VERY DIAPHORETIC AND HAD BP DOWN TO 90 SYSTOLC. HE HAD R HAND INFLAMMATION, TENDERNESS AND AND ABSCESS IN THE REGION. WE DON'T HAVE HAND SURGEON. HE WAS KEPT ON IV VANCOMYCIN AND CEFEPIME AND WAS TRANSFERRED TO [facility] UNDER CARE OF HAND SURGEON. Vital Signs/Physical Exam: Temp Pulse Resp BP Pulse Ox 97.5 F 64 18 178/70 H 95 06/21/20 16:00 06/21/20 17:51 06/21/20 18:52 06/21/20 17:51 06/21/20 18:52 Laboratory Data at Discharge: WBC 8.3 K/uL (4.3-10.9) D 06/20/20 04:56 Hgb 12.6 g/dL (13.6-17.9) L 06/20/20 04:56 Hct 37.3 % (39.6-49.0) L 06/20/20 04:56 Plt Count 155 K/uL (152-406) 06/20/20 13:49 PT 11.5 SECONDS (9.5-12.5) 06/19/20 15:47 INR 0.97 06/19/20 15:47 APTT 22.2 SECONDS (24.3-36.9) L 06/19/20 15:47 Sodium 141 mmol/L (136-145) 06/20/20 04:56 Potassium 4.4 mmol/L (3.5-5.1) 06/20/20 04:56 BUN 31 mg/dL (7-18) H 06/20/20 04:56 Creatinine 1.33 mg/dL (0.55-1.3) H 06/20/20 04:56 Glucose 190 mg/dL (74-106) H 06/20/20 04:56 Magnesium 2.0 mg/dL (1.8-2.4) 06/19/20 15:47 Total Bilirubin 0.4 mg/dL (0.2-1.0) 06/19/20 15:47 AST 9 U/L (15-37) L 06/19/20 15:47 ALT 17 U/L (12-78) 06/19/20 15:47 Alkaline Phosphatase 84 U/L (45-117) 06/19/20 15:47 Amylase 18 U/L (25-115) L 06/19/20 15:47 Lipase 91 U/L (73-393) 06/19/20 15:47 Home Medications: Amlodipine [Norvasc] 5 mg PO DAILY 06/19/20 Clopidogrel Bisulfate [Plavix] 75 mg PO DAILY 06/19/20 Clotrim/Betameth Cream [Lotrisone Cream] 1 appl TP BID 06/19/20 Ezetimibe 10 mg PO DAILY 06/19/20 Furosemide [Lasix] 40 mg PO DAILY 06/19/20 Gabapentin 600 mg PO TID 06/19/20 Hydroxychloroquine [Plaquenil] 200 mg PO DAILY 06/19/20 Insulin 70/30 NPH/Reg Human [Novolin 70/30*] 35 unit SQ TID 06/19/20 Lisinopril [Zestril] 40 mg PO DAILY 06/19/20 Metformin HCl [Glucophage] 2 tab PO DAILY 06/19/20 Metoprolol Tartrate [Lopressor] 100 mg PO DAILY 06/19/20 Followup: Unknown,U [Primary Care Provider] -
[2020-06-22] MEDS ORDERED: AMLODIPINE 5 MG TAB PO SCH (18:00)
== END 2020-06-21 18:56 | disposition short-term general hospital (02) | DRG 872 ==
LOC: ER 15:28 → ERHOLD 18:00 → 2ND 20:43 → OBSVTOIN 06-21 07:58
PROVIDERS: ADMIT Internal Medicine; ATTEND Internal Medicine
DX: A41.9 Sepsis, unspecified organism (principal); L02.511 Cutaneous abscess of right hand; I10 Essential (primary) hypertension; E11.51 Type 2 diabetes mellitus with diabetic peripheral angiopathy without gangrene; I25.10 Atherosclerotic heart disease of native coronary artery without angina pectoris; R79.89 Other specified abnormal findings of blood chemistry; I25.2 Old myocardial infarction; Z88.0 Allergy status to penicillin; Z88.8 Allergy status to other drugs, medicaments and biological substances; Z79.02 Long term (current) use of antithrombotics/antiplatelets; Z79.899 Other long term (current) drug therapy; Z95.5 Presence of coronary angioplasty implant and graft; Z79.82 Long term (current) use of aspirin; Z79.4 Long term (current) use of insulin; Z20.828 Contact with and (suspected) exposure to other viral communicable diseases; I45.10 Unspecified right bundle-branch block
CPT/HCPCS: 36415; 71045; 80048; 80076; 81001; 82150; 82550; 82553; 82947; 83605; 83690; 83735; 83880; 84145; 84484; 85025; 85049; 85610; 85730; 87040; 93005; 96361; 96365; 96367; 96375; 99285; G0378; J0692; J1650; J2543; J3010; J3370; J7040; U0003

== ENCOUNTER 2021-04-16 06:45 | Day surgery (SDC) | payer OTHER, BC ==
[2021-04-12 15:48] LABS: Absolute Lymphocytes (CBC) 0.8 K/uL (0.7-4.9); Hematocrit 41.2 % (39.6-49.0); Lymphocytes % 15.9 % (15.3-44.8); RBC Red Blood Cell Count 4.59 M/uL (4.33-5.43)
--- NOTE | 2021-04-12 15:53 | RAD REPORT ---
EXAM DESCRIPTION: RAD - Chest Pa And Lat (2 Views) - 04/12/2021 3:47 pm CLINICAL HISTORY: pre-op cath patient Chest pain. COMPARISON: Chest Single View dated 06/19/2020; Chest Single View dated 04/05/2020; Chest Single View dated 04/04/2020; Chest Single View dated 11/26/2019 FINDINGS: The lungs are clear. The heart is upper limit normal in size. No displaced fractures. IMPRESSION: No acute or concerning finding suspected.
[2021-04-12 16:02] LABS: Protime INR 0.97
[2021-04-12 16:06] LABS: Potassium 4.8 mmol/L (3.5-5.1)
[2021-04-16] MEDS ORDERED: NA CHLORIDE 0.9% 500 ML ONE (07:16)
[2021-04-16] MEDS ORDERED: HEPA 1000U/500MLS 1,000 UNIT/500 ML BAG IV ONE (07:22)
[2021-04-16] MEDS ORDERED: LIDOCAINE 1% 20 ML MDV ONE (07:22)
[2021-04-16] MEDS ORDERED: MIDAZOLAM HCL 2 MG/2 ML INJ ONE ×2 (07:54→08:17)
[2021-04-16] MEDS ORDERED: FENTANYL CITR 100 MCG/2 ML ONE (07:55)
[2021-04-16] MEDS ORDERED: ATROPINE SULF 1 MG/10 ML SYR IV ONE (07:55)
[2021-04-16 08:39] VITALS: TEMP 97
[2021-04-16 10:04] VITALS: BP 173/67; O2SAT 99
--- NOTE | 2021-04-16 11:41 | OP ---
Date of Procedure: 04/16/2021 Surgeon: Sonny Menendez MD Procedure: Bilateral selective carotid angiogram. Indication: Cerebrovascular disease, positive carotid Doppler. Procedure In Detail: The patient was brought to the labeling associate as an outpatient, prepped and draped in the routine sterile fashion. Given Versed for sedation. A 6-Yemeni sheath introduced in the right common femoral artery successfully using the Seldinger technique. A JR4 catheter was introduced and selected the right common carotid and the left common carotid artery for angiography. He was found t o have a 40% to 50% left ICA and a normal common carotid and external carotid bilaterally, 95% ostial right ICA. There were no complications. Blood Loss: 5 mL. Postoperative Diagnosis: Severe right internal carotid artery stenosis. Plan: For the right carotid endarterectomy. Total conscious sedation 45 minutes. The patient will remain at bedrest for 2 hours after Angio-Seal and he will go home and I will arrange outpatient workup and followup. ASHLEY/SHAKA Voice ID: [id number] Report ID: [id number]
--- NOTE | 2021-04-16 18:19 | EKG ---
Test Date: 2021-04-12 Test Time: 14:15:28 Finger Waver: VADIM MEASUREMENT RESULTS: Intervals: Rate: 83 TX: 194 QRSD: 174 QT: 454 QTc: 533 [place]: P: 9 TX: 194 QRS: 84 T: -15 INTERPRETIVE STATEMENTS: Sinus rhythm with occasional premature ventricular complexes Right bundle branch block Cannot rule out Inferior infarct, age undetermined Abnormal ECG Compared to ECG 06/19/2020 15:32:03 Myocardial infarct finding now present T-wave abnormality no longer present Possible ischemia no longer present Electronically Signed On 04-16-21 18:07:00 CDT by Sonny Menendez
== END 2021-04-16 10:19 | disposition home or self-care (01) ==
LOC: CCL 06:45
DX: I65.23 Occlusion and stenosis of bilateral carotid arteries (principal); I25.10 Atherosclerotic heart disease of native coronary artery without angina pectoris; I50.9 Heart failure, unspecified; I73.9 Peripheral vascular disease, unspecified; Z95.5 Presence of coronary angioplasty implant and graft; Z88.0 Allergy status to penicillin; Z20.822 Contact with and (suspected) exposure to COVID-19
CPT/HCPCS: 93005; 85025; 80048; 36415; 85610; 85730; 71046; 36222; U0003; C1893; C1760; J2250 ×2; J3010; J7040; J1644

== ENCOUNTER 2021-08-26 07:51 | Emergency (ER) | payer OTHER, BC ==
--- OUTSIDE RECORDS SUMMARY | 2021-08-26 07:54 | XMS REPORT | Continuity of Care Document ---
:1950 Author Organization [facility] t Address [address] [place] [address] Care Team Providers Name Role Phone TAE MORAN Attending Clinician Unavailable Ashlie PICKERING Attending Clinician Unavailable AURELIA OGDEN Attending Clinician Unavailable TAE MORAN Admitting Clinician Unavailable AURELIA OGDEN Admitting Clinician Unavailable SANDY TIERNEY Admitting Clinician Unavailable Payers Payer Name Policy Type Policy Number Effective Date Expiration Date S armando MEDICARE A B [id number] 2014 00:00:00 [facility] [id number] 2018 OS 00:00:00 Problems This patient has no known problems. Allergies, Adverse Reactions, Alerts Allergy Allergy Status Severity Reaction(s) Onset Inactive Treating Comm ents Source Name Type Date Date Clinician PENICILL Allergy Active High [facility] Medications This patient has no known medications. Vital Signs Vital Name Observation Time Observation Value Comments Source HEIGHT 2020-06-22 02:00:00 182.9 cm WEIGHT 2020-06-22 02:00:00 103.828 kg HEIGHT 2021-05-07 10:41:00 182.9 cm WEIGHT 2021-05-07 10:41:00 107.5 kg HEIGHT 2021-05-06 14:49:00 182.9 cm WEIGHT 2021-05-06 14:49:00 106.595 kg HEIGHT 2021-05-07 10:41:00 182.9 cm WEIGHT 2021-05-07 10:41:00 107.5 kg HEIGHT 2021-05-06 14:49:00 182.9 cm WEIGHT 2021-05-06 14:49:00 106.595 kg WEIGHT 2021-05-06 13:17:00 106.595 kg HEIGHT 2021-05-06 13:17:00 182.9 cm WEIGHT 2021-05-06 13:17:00 106.595 kg HEIGHT 2021-05-06 13:17:00 182.9 cm HEIGHT 2021-04-24 11:34:00 182.9 cm WEIGHT 2021-04-24 11:34:00 106.595 kg HEIGHT 2020-06-22 02:00:00 182.9 cm WEIGHT 2020-06-22 02:00:00 103.828 kg Procedures This patient has no known procedures. Encounters Start End Encounter Admission Attending Care Care Encounter Source Date/Time Date/Time Type Type Clinicians Facility Department ID 2021-04-19 Inpatient UR LUKE MORAN Hand [id number] SLE 19:29:06 KHANNAN Surgery 2021-08-07 2021-08-07 Outpatient SERGEI PICKERING BLUE [id number] SERGEI 10:33:00 16:02:00 ZARA 2021-05-22 2021-05-22 Outpatient ALICIA OGDEN [facility] [id number] SLE 00:00:00 00:00:00 GIACOMO 2021-05-07 2021-05-08 [facility] [id number] SLE 10:16:00 17:41:00 GIACOMO 2021-05-07 2021-05-07 Outpatient [facility] [id number] [facility] 10:16:00 23:59:00 Roberto Medicin e 2021-05-06 2021-05-06 Outpatient [facility] [id number] SLE 15:09:25 23:59:00 2021-05-06 2021-05-06 Outpatient [facility] [id number] SLE 13:05:36 13:05:36 2021-05-01 2021-05-01 Outpatient LUKE LARKIN [facility] [id number] SLE 00:00:00 00:00:00 GIACOMO 2021-04-24 2021-04-24 Outpatient LUKE LARKIN [facility] [id number] [facility] 11:25:16 11:25:16 GIACOMO 2020-09-14 2020-09-14 Outpatient SRIRAM PICKERING BLUE [id number] 06:51:00 11:12:00 ZARA [facility] Results Test Description Test Time Test Comments Results Result [facility] e Comments TISSUE EXAM 2021-05-14 Surgical Pathology 17:29:23 Report Case: [id number] Authorizing Provider: Giacomo Ogden, Collected: 05/07/2021 01:27 PM Ordering Location: [facility] Received: 05/07/2021 03:03 PM PERIOPERATIVE SERVICES Pathologist: Joseph Ledbetter MD Specimen: Plaque, RIGHT CAROTID ARTERY PLAQUE ARTERY, LEFT CAROTID, ENDARTERECTOMY:CALCIFI C ATHEROSCLEROTIC PLAQUE Signing Pathologist Direct Phone Line: [phone] ally signed by Joseph Ledbetter MD on 05/14/2021 at 5:29 [id number]; [id number] stenosis Endarterectomy, carotid procedure A. Right carotid artery plaque A. Received in formalin, labeled with the patient's name, MRN and "right carotid artery plaque" consists of a tubular piece of calcified plaque (5.5 x 0.5-1.5 cm). The specimen is serially sectioned to reveal newton-yellow hard cut surface. Water Reclamation Systems Operator sections are submitted in A1, following decalcification. MV/ewPerformed POCT-GLUCOSE METER 2021-05-08 14:43:17 Test Item Value Reference Range Interpretation Comme nts POC-GLUCOSE METER (BEAKER) 113 mg/dL 70-110 H : TESTED AT [facility] [address] (test code = 1538) ROBBIN Marquez [address]: Elementary Instructional Coach/Techni bill ID = [id number] for Judy Adam BASIC METABOLIC [id number] 13:47:27 Test Item Value Reference Range Interpretation Comments SODIUM (BEAKER) 140 meq/L 136-145 (test code = 381) POTASSIUM (BEAKER) 5.1 meq/L 3.5-5.1 (test code = 379) CHLORIDE (BEAKER) 107 meq/L 98-107 (test code = 382) CO2 (BEAKER) (test 21 meq/L 22-29 L code = 355) BLOOD UREA NITROGEN 39 mg/dL 7-21 H (BEAKER) (test code = 354) CREATININE (BEAKER) 1.35 mg/dL 0.57-1.25 H (test code = 358) GLUCOSE RANDOM 220 mg/dL 70-105 H (BEAKER) (test code = 652) CALCIUM (BEAKER) 9.3 mg/dL 8.4-10.2 (test code = 697) EGFR (BEAKER) (test 52 mL/min/1.73 ESTIMA DIXIE GFR IS code = 1092) sq m NOT ACCURATE CREATININE CLEARANCE IN PREDICTING GLOMERULAR FILTRATION RATE . ESTIMATED GFR I S NOT APPLICABLE FOR DIALYSIS PATIEN TS. Elementary Instructional Coach ID - VICTORINO MPOCT-GLUCOSE [id number] 12:16:41 Test Item Value Reference Range Interpretation Comments POC-GLUCOSE METER 305 mg/dL 70-110 H : TESTED [facility] 67[address] ([facility] (test code = [facility], 1538) [address]: Elementary Instructional Coach/Techni bill ID = [id number] for Sa Nida barnett POCT-GLUCOSE [id number] 10:54:39 Test Item Value Reference Range Interpretation Comments POC-GLUCOSE METER 403 mg/dL 70-110 HH : Notified RN/MD: ([facility] (test code = TESTED AT [facility] 6720 1538) [facility], [address]: Elementary Instructional Coach/Techni bill ID = [id number] for Sa anibal, Nida BASIC METABOLIC [id number] 09:55:44 Test Item Value Reference Range Interpretation Comments SODIUM (BEAKER) 133 meq/L 136-145 L (test code = 381) POTASSIUM (BEAKER) 5.6 meq/L 3.5-5.1 H (test code = 379) CHLORIDE (BEAKER) 105 meq/L 98-107 (test code = 382) CO2 (BEAKER) (test 18 meq/L 22-29 L code = 355) BLOOD UREA NITROGEN 36 mg/dL 7-21 H (BEAKER) (test code = 354) CREATININE (BEAKER) 1.39 mg/dL 0.57-1.25 H (test code = 358) GLUCOSE RANDOM 477 mg/dL 70-105 HH (BEAKER) (test code = 652) CALCIUM (BEAKER) 8.3 mg/dL 8.4-10.2 L (test code = 697) EGFR (BEAKER) (test 50 mL/min/1.73 ESTIMA DIXIE GFR IS code = 1092) sq m NOT ACCURATE CREATININE CLEARANCE IN PREDICTING GLOMERULAR FILTRATION RATE . ESTIMATED GFR I S NOT APPLICABLE FOR DIALYSIS PATIEN TS. Elementary Instructional Coach ID - VICTORINO MPOCT-GLUCOSE [id number] 08:14:09 Test Item Value Reference Range Interpretation Comments POC-GLUCOSE METER 424 mg/dL 70-110 HH : Notified RN/MD: ([facility] (test code = TESTED AT [place] [address] 1538) [facility], [address]: Elementary Instructional Coach/Techni bill ID = [id number] for Sa Nida barnett POCT-GLUCOSE [id number] 07:39:48 Test Item Value Reference Range Interpretation Comments POC-GLUCOSE METER 452 mg/dL 70-110 HH : TESTED A T [place] [address] ([facility] (test code [facility], = 1538) [address]: Elementary Instructional Coach/Techni bill ID = [id number] for Joslyn zMaddy CBC (HEMOGRAM ONLY)2021-05-08 05:05:40 Test Item Value Reference Range Interpretation Comments WHITE BLOOD CELL COUNT (BEAKER) 7.5 K/ L 3.5-10.5 (test code = 775) RED BLOOD CELL COUNT (BEAKER) 4.25 M/ L 4.63-6.08 L (test code = 761) HEMOGLOBIN (BEAKER) (test code = 12.7 GM/DL 13.7-17.5 L 410) HEMATOCRIT (BEAKER) (test code = 38.0 % 40.1-51.0 L 411) MEAN CORPUSCULAR VOLUME (BEAKER) 89.4 fL 79.0-92.2 (test code = 753) MEAN CORPUSCULAR HEMOGLOBIN 29.9 pg 25.7-32.2 (BEAKER) (test code = 751) MEAN CORPUSCULAR HEMOGLOBIN CONC 33.4 GM/DL 32.3-36.5 (BEAKER) (test code = 752) RED CELL DISTRIBUTION WIDTH 12.5 % 11.6-14.4 (BEAKER) (test code = 412) PLATELET COUNT (BEAKER) (test 135 K/CU MM 150-450 L code = 756) MEAN PLATELET VOLUME (BEAKER) 11.3 fL 9.4-12.4 (test code = 754) NUCLEATED RED BLOOD CELLS 0 /100 WBC 0-0 (BEAKER) (test code = 413) POCT-GLUCOSE [id number] 21:25:47 Test Item Value Reference Range Interpretation Comments POC-GLUCOSE METER 374 mg/dL 70-110 H : TESTED A T [facility] 6720 (BEAKER) (test code = [facility], 1538) [address]: Elementary Instructional Coach/Techni bill ID = [id number] for DOROTHY AYALA POCT-GLUCOSE [id number] 17:58:37 Test Item Value Reference Range Interpretation Comments POC-GLUCOSE METER 314 mg/dL 70-110 H : TESTED A T [facility] 6720 (BEAKER) (test code = [facility], 1538) [address]: Elementary Instructional Coach/Techni bill ID = [id number] for TRE LUCIONA POCT-GLUCOSE [id number] 17:25:36 Test Item Value Reference Range Interpretation Comments POC-GLUCOSE METER 324 mg/dL 70-110 H : TESTED A T [facility] 6720 (BEAKER) (test code = [facility], 1538) [address]: Elementary Instructional Coach/Techni bill ID = [id number] for MO SHABNAM, ALBERT HGB/HCT (H&H) - STAT [id number] 15:20:51 Test Item Value Reference Range Interpretation Comments HEMOGLOBIN (BEAKER) (test code = 13.4 GM/DL 13.0-16.8 410) HEMATOCRIT (BEAKER) (test code = 39.0 % 40.0-50.0 L 411) GLUCOSE-STAT [id number] 15:20:46 Test Item Value Reference Range Interpretation Comments GLUCOSE RANDOM (BEAKER) (test code 333 mg/dL 70-110 H = 652) POTASSIUM-STAT [id number] 15:19:51 Test Item Value Reference Range Interpretation Comments POTASSIUM (BEAKER) (test code = 5.2 meq/L 3.6-5.5 379) [id number] 14:12:07 Test Item Value Reference Range Interpretation Comments ACTIVATED CLOTTING TIME 235 sec : 74 -137 seconds, (BEAKER) (test code = Sarina ne: TESTED AT 441) [facility] [address] [facility], [address]: Elementary Instructional Coach/Techni bill ID = [id number] for EDUARD GILLIS POCT-GLUCOSE [id number] 10:44:51 Test Item Value Reference Range Interpretation Comments POC-GLUCOSE METER 310 mg/dL 70-110 H : [facility] (test code = ROSALINO Fong [facility], 1538) [address]: Elementary Instructional Coach/Techni bill ID = [id number] for OVIDIO DYER SARS-COV2/RT-PCR ([facility])2021-05-07 03:25:05 Test Item Value Reference Range Interpretation Comments SARS-COV2/RT-PCR (test code = Negative Negative [id number]) Negative result for this test determines that SARS-CoV-2 RNA was not present in the specimen above the Limit of Detection (LOD). However, Negative results do not preclude SARS-CoV-2 infection and should not be used as the sole basis for treatment or patient management decisions. Negative results must be combined with clinical observations, patient history, and epidemiological information. A false negative result may occur if a specimen is improperly collected, transported, or handled. A false negative result should be considered if patient's recent exposures or clinical presentation indicate that COVID-19 (SARS-CoV-2) is likely and diagnostic tests for other causes of illness are negative. Re-testing should be considered in cases of suspected false negatives.The limit of detection for this assay is 100 copies/mL.This SARS-CoV-2 test is a real-time RT_PCR test intended for the qualitative detection of nucleic acid from SARS-CoV-2 in a nasopharyngeal swab specimen collected from individuals suspected of COVID-19 by their healthcare provider.This test has not been Food and Drug Administration (FDA) cleared or approved. This is a modified version of an approved Emergency Use Authorization (EUA) and is in the process of review by the FDA. Once authorized by the FDA, the issued EUA will be e ffective until the declaration that circumstances exist justifying the authorization of the emergency use of in vitro diagnostic tests for detection and/or diagnosis of COVID-19 is terminated under Section 564(b)(2) of the Act or the EUA is revoked under Section 564(g) of the Act.Testing was performedusing the Moyer SARS-CoV-2 assay.Fact Sheet for Healthcare Providers:https://www.Moobia.Active Endpoints/ramy/RT SARS-CoV-2 HCP Fact Sheet 51- 699234.pdfFact Sheet for Healthcare Patients:https://www.Moobia.Active Endpoints/ramy/RT SARS-CoV-2 Patient Fact Sheet EN 51-932047E5.pdfBASI METABOLIC [id number] 15:03:34 Test Item Value Reference Range Interpretation Comments SODIUM (BEAKER) 135 meq/L 136-145 L (test code = 381) POTASSIUM (BEAKER) 4.7 meq/L 3.5-5.1 (test code = 379) CHLORIDE (BEAKER) 101 meq/L 98-107 (test code = 382) CO2 (BEAKER) (test 26 meq/L 22-29 code = 355) BLOOD UREA NITROGEN 45 mg/dL 7-21 H (BEAKER) (test code = 354) CREATININE (BEAKER) 1.56 mg/dL 0.57-1.25 H (test code = 358) GLUCOSE RANDOM 428 mg/dL 70-105 HH (BEAKER) (test code = 652) CALCIUM (BEAKER) 8.9 mg/dL 8.4-10.2 (test code = 697) EGFR (BEAKER) (test 44 mL/min/1.73 ESTIMA DIXIE GFR IS code = 1092) sq m NOT ACCURATE CREATININE CLEARANCE IN PREDICTING GLOMERULAR FILTRATION RATE . ESTIMATED GFR I S NOT APPLICABLE FOR DIALYSIS PATIEN TS. Elementary Instructional Coach ID - PIAYA LPROTHROMBIN [id number] 14:50:53 Test Item Value Reference Range Interpretation Comments PROTIME (BEAKER) 13.3 seconds 11.9-14.2 (test code = 759) INR (BEAKER) (test 1.03 See_Comment [Automat ed message] code = 370) The system [employer] generated this result transmitted ref erence range: <=5.90. The reference range was not used to int erpret this result as normal/abnormal . RECOMMENDED COUMADIN/WARFARIN INR THERAPY RANGESSTANDARD DOSE: 2.0 - 3.0 Includes: PROPHYLAXIS forvenous thrombosis, systemic embolization; TREATMENT for venous thrombosis and/or pulmonary embolus.HIGH RISK: Target INR is 2.5-3.5 for patients with mechanical heart valves.CBC W/PLT COUNT & AUTO DIFFERENTIAL 2021-05-06 14:30:49 Test Item Value Reference Range Interpretation Comments WHITE BLOOD CELL COUNT (BEAKER) 5.5 K/ L 3.5-10.5 (test code = 775) RED BLOOD CELL COUNT (BEAKER) 4.71 M/ L 4.63-6.08 (test code = 761) HEMOGLOBIN (BEAKER) (test code = 13.8 GM/DL 13.7-17.5 410) HEMATOCRIT (BEAKER) (test code = 41.0 % 40.1-51.0 411) MEAN CORPUSCULAR VOLUME (BEAKER) 87.0 fL 79.0-92.2 (test code = 753) MEAN CORPUSCULAR HEMOGLOBIN 29.3 pg 25.7-32.2 (BEAKER) (test code = 751) MEAN CORPUSCULAR HEMOGLOBIN CONC 33.7 GM/DL 32.3-36.5 (BEAKER) (test code = 752) RED CELL DISTRIBUTION WIDTH 12.5 % 11.6-14.4 (BEAKER) (test code = 412) PLATELET COUNT (BEAKER) (test 161 K/CU MM 150-450 code = 756) MEAN PLATELET VOLUME (BEAKER) 10.5 fL 9.4-12.4 (test code = 754) NUCLEATED RED BLOOD CELLS 0 /100 WBC 0-0 (BEAKER) (test code = 413) NEUTROPHILS RELATIVE PERCENT 74 % (BEAKER) (test code = 429) LYMPHOCYTES RELATIVE PERCENT 17 % (BEAKER) (test code = 430) MONOCYTES RELATIVE PERCENT 6 % (BEAKER) (test code = 431) EOSINOPHILS RELATIVE PERCENT 2 % (BEAKER) (test code = 432) BASOPHILS RELATIVE PERCENT 1 % (BEAKER) (test code = 437) NEUTROPHILS ABSOLUTE COUNT 4.07 K/ L 1.78-5.38 (BEAKER) (test code = 670) LYMPHOCYTES ABSOLUTE COUNT 0.95 K/ L 1.32-3.57 L (BEAKER) (test code = 414) MONOCYTES ABSOLUTE COUNT (BEAKER) 0.35 K/ L 0.30-0.82 (test code = 415) EOSINOPHILS ABSOLUTE COUNT 0.08 K/ L 0.04-0.54 (BEAKER) (test code = 416) BASOPHILS ABSOLUTE COUNT (BEAKER) 0.03 K/ L 0.01-0.08 (test code = 417) IMMATURE GRANULOCYTES-RELATIVE 0 % 0-1 PERCENT (BEAKER) (test code = 2801) AFB CULTURE + SMEAR (NON-SPUTUM)2020-08-06 07:59:00 Test Item Value Reference Range Interpretation Comments CULTURE (BEAKER) (test No acid-fast bacilli code = 1095) isolated in 42 days AFB SMEAR (BEAKER) No acid fast bacilli (test code = 994) seen FUNGUS CULTURE + [id number] 00:17:00 Test Item Value Reference Range Interpretation Comments CULTURE (BEAKER) (test No fungus isolated in code = 1095) 28 days FUNGUS SMEAR (BEAKER) No fungal elements seen (test code = 1406) ANAEROBIC [id number] 20:08:00 Test Item Value Reference Range Interpretation Comments CULTURE (BEAKER) (test No anaerobes isolated code = 1095) ANAEROBIC [id number] 19:47:00 Test Item Value Reference Range Interpretation Comments CULTURE (BEAKER) (test No anaerobes isolated code = 1095) POCT-GLUCOSE [id number] 11:59:00 Test Item Value Reference Range Interpretation Comments POC-GLUCOSE METER 244 mg/dL 70-110 H : TESTED A T [facility] 6720 (BEAKER) (test code = [facility], 1538) [address]: Elementary Instructional Coach/Techni bill ID = [id number] for DEBBIE COPELAND R POCT-GLUCOSE [id number] 07:35:00 Test Item Value Reference Range Interpretation Comments POC-GLUCOSE METER 206 mg/dL 70-110 H : TESTED A T [facility] 6720 (BEAKER) (test code = [facility], 1538) [address]: Elementary Instructional Coach/Techni bill ID = [id number] for MISA SHELDON, ULISESARNAUDFE R BASIC METABOLIC [id number] 06:03:00 Test Item Value Reference Range Interpretation Comments SODIUM (BEAKER) 138 meq/L 136-145 (test code = 381) POTASSIUM (BEAKER) 4.7 meq/L 3.5-5.1 (test code = 379) CHLORIDE (BEAKER) 106 meq/L 98-107 (test code = 382) CO2 (BEAKER) (test 22 meq/L 22-29 code = 355) BLOOD UREA NITROGEN 22 mg/dL 7-21 H (BEAKER) (test code = 354) CREATININE (BEAKER) 1.34 mg/dL 0.57-1.25 H (test code = 358) GLUCOSE RANDOM 213 mg/dL 70-105 H (BEAKER) (test code = 652) CALCIUM (BEAKER) 8.9 mg/dL 8.4-10.2 (test code = 697) EGFR (BEAKER) (test 53 mL/min/1.73 ESTIMA DIXIE GFR IS code = 1092) sq m NOT ACCURATE CREATININE CLEARANCE IN PREDICTING GLOMERULAR FILTRATION RATE . ESTIMATED GFR I S NOT APPLICABLE FOR DIALYSIS PATIEN TS. Elementary Instructional Coach ID - [id number] 06:03:00 Test Item Value Reference Range Interpretation Comments MAGNESIUM (BEAKER) (test code = 1.9 mg/dL 1.6-2.6 627) Elementary Instructional Coach ID - [id number] 06:03:00 Test Item Value Reference Range Interpretation Comments PHOSPHORUS (BEAKER) (test code = 2.9 mg/dL 2.3-4.7 604) Elementary Instructional Coach ID - [id number] (HEMOGRAM ONLY)2020-06-25 05:39:00 Test Item Value Reference Range Interpretation Comments WHITE BLOOD CELL COUNT 5.4 K/ L 3.5-10.5 (BEAKER) (test code = 775) RED BLOOD CELL COUNT 4.32 M/ L 4.63-6.08 L (BEAKER) (test code = 761) HEMOGLOBIN (BEAKER) 12.8 GM/DL 13.7-17.5 L (test code = 410) HEMATOCRIT (BEAKER) 37.9 % 40.1-51.0 L (test code = 411) MEAN CORPUSCULAR 87.7 fL 79.0-92.2 Discordant MCV VOLUME (BEAKER) (test result s compared to code = 753) previous result s; clinical correl ation required. MEAN CORPUSCULAR 29.6 pg 25.7-32.2 HEMOGLOBIN (BEAKER) (test code = 751) MEAN CORPUSCULAR 33.8 GM/DL 32.3-36.5 HEMOGLOBIN CONC (BEAKER) (test code = 752) RED CELL DISTRIBUTION 13.1 % 11.6-14.4 WIDTH (BEAKER) (test code = 412) PLATELET COUNT 178 K/CU MM 150-450 (BEAKER) (test code = 756) MEAN PLATELET VOLUME 10.0 fL 9.4-12.4 (BEAKER) (test code = 754) NUCLEATED RED BLOOD 0 /100 WBC 0-0 CELLS (BEAKER) (test code = 413) POCT-GLUCOSE [id number] 22:25:00 Test Item Value Reference Range Interpretation Comments POC-GLUCOSE METER 125 mg/dL 70-110 H : TESTED A T [facility] 6720 (BEAKER) (test code = [facility], 153) [address]: Elementary Instructional Coach/Techni bill ID = [id number] for KAITLIN DOMINIQUE POCT-GLUCOSE [id number] 16:58:00 Test Item Value Reference Range Interpretation Comments POC-GLUCOSE METER 133 mg/dL 70-110 H : TESTED A T [facility] 6720 (BEAKER) (test code = [facility], 153) [address]: Elementary Instructional Coach/Techni bill ID = [id number] for BRAD CHEN SURGICALLY OBTAINED CULTURE + GRAM [id number] 12:33:00 Test Item Value Reference Range Interpretation Comments CULTURE A 1+ Same organis m has (BEAKER) (test been isolated from code = 1095) cultures(s) of the same body site within 3 days. Repeat identification and susceptibility testing performed only after consultation wi the clinical microb iology laboratory.Refe r to previous cultur e ofMethicillin resistant Staphylococcus aureus GRAM STAIN <1+ WBCs RESULT (BEAKER) (test code = 1123) GRAM STAIN No organisms seen RESULT (BEAKER) (test code = 217972) SURGICALLY OBTAINED CULTURE + GRAM [id number] 12:32:00 Test Item Value Reference Interpretation Comments Range CULTURE (BEAKER) METHICILLIN A 3+ Methicil moe (test code = 1095) RESISTANT resistant STAPHYLOCOCCUS Staphylococcu s AUREUS aureus Clindamycin (test S code = 10) Erythromycin (test R code = 4) Linezolid (test code S = 40) Nitrofurantoin (test S code = 23) Oxacillin (test code R = 14) Rifampin (test code = S 43) Tetracycline (test S code = 2) Trimethoprim + S Sulfamethoxazole (test code = 47) Vancomycin (test code S = 13) GRAM STAIN RESULT <1+ WBCs (BEAKER) (test code = 1123) GRAM STAIN RESULT No organisms seen (BEAKER) (test code = 938795) POCT-GLUCOSE [id number] 11:30:00 Test Item Value Reference Range Interpretation Comments POC-GLUCOSE METER 232 mg/dL 70-110 H : TESTED A T [facility] 6720 (BEAKER) (test code = ROSALINO Fong [facility], 1538) [address]: Elementary Instructional Coach/Techni bill ID = [id number] for BRAD CHEN BASIC METABOLIC [id number] 10:14:00 Test Item Value Reference Range Interpretation Comments SODIUM (BEAKER) 136 meq/L 136-145 (test code = 381) POTASSIUM (BEAKER) 4.6 meq/L 3.5-5.1 (test code = 379) CHLORIDE (BEAKER) 105 meq/L 98-107 (test code = 382) CO2 (BEAKER) (test 21 meq/L 22-29 L code = 355) BLOOD UREA NITROGEN 23 mg/dL 7-21 H (BEAKER) (test code = 354) CREATININE (BEAKER) 1.45 mg/dL 0.57-1.25 H (test code = 358) GLUCOSE RANDOM 324 mg/dL 70-105 H (BEAKER) (test code = 652) CALCIUM (BEAKER) 8.5 mg/dL 8.4-10.2 (test code = 697) EGFR (BEAKER) (test 48 mL/min/1.73 ESTIMA DIXIE GFR IS code = 1092) sq m NOT ACCURATE CREATININE CLEARANCE IN PREDICTING GLOMERULAR FILTRATION RATE . ESTIMATED GFR I S NOT APPLICABLE FOR DIALYSIS PATIEN TS. Elementary Instructional Coach ID - [id number] 10:14:00 Test Item Value Reference Range Interpretation Comments MAGNESIUM (BEAKER) (test code = 1.9 mg/dL 1.6-2.6 627) Elementary Instructional Coach ID - [id number] 10:14:00 Test Item Value Reference Range Interpretation Comments PHOSPHORUS (BEAKER) (test code = 3.3 mg/dL 2.3-4.7 604) Elementary Instructional Coach ID - ADMINSPIN/CONCENTRATION [id number] 08:27:00 Test Item Value Reference Range Interpretation Comments CONCENTRATION CHARGED (BEAKER) (test Done code = 2657) POCT-GLUCOSE [id number] 07:42:00 Test Item Value Reference Range Interpretation Comments POC-GLUCOSE METER 247 mg/dL 70-110 H : TESTED A T [facility] 6720 (BEAKER) (test code = [place], 1538) [id number]: Elementary Instructional Coach/Techni bill ID = [id number] for BRAD CHEN CBC (HEMOGRAM ONLY)2020-06-24 04:27:00 Test Item Value Reference Range Interpretation Comments WHITE BLOOD CELL COUNT (BEAKER) 4.6 K/ L 3.5-10.5 (test code = 775) RED BLOOD CELL COUNT (BEAKER) 3.87 M/ L 4.63-6.08 L (test code = 761) HEMOGLOBIN (BEAKER) (test code = 11.5 GM/DL 13.7-17.5 L 410) HEMATOCRIT (BEAKER) (test code = 36.1 % 40.1-51.0 L 411) MEAN CORPUSCULAR VOLUME (BEAKER) 93.3 fL 79.0-92.2 H (test code = 753) MEAN CORPUSCULAR HEMOGLOBIN 29.7 pg 25.7-32.2 (BEAKER) (test code = 751) MEAN CORPUSCULAR HEMOGLOBIN CONC 31.9 GM/DL 32.3-36.5 L (BEAKER) (test code = 752) RED CELL DISTRIBUTION WIDTH 13.2 % 11.6-14.4 (BEAKER) (test code = 412) PLATELET COUNT (BEAKER) (test 146 K/CU MM 150-450 L code = 756) MEAN PLATELET VOLUME (BEAKER) 10.3 fL 9.4-12.4 (test code = 754) NUCLEATED RED BLOOD CELLS 0 /100 WBC 0-0 (BEAKER) (test code = 413) POCT-GLUCOSE [id number] 21:46:00 Test Item Value Reference Range Interpretation Comments POC-GLUCOSE METER 114 mg/dL 70-110 H : TESTED A T [facility] 6720 (BEAKER) (test code = [facility], 153) [id number]: Elementary Instructional Coach/Techni bill ID = [id number] for MEGHNA WYNNE POCT-GLUCOSE [id number] 16:52:00 Test Item Value Reference Range Interpretation Comments POC-GLUCOSE METER 230 mg/dL 70-110 H : TESTED A T [facility] 6720 (BEAKER) (test code = [facility], 1538) [id number]: Elementary Instructional Coach/Techni bill ID = [id number] for CA BRAD OSORIO POCT-GLUCOSE [id number] 11:20:00 Test Item Value Reference Range Interpretation Comments POC-GLUCOSE METER 238 mg/dL 70-110 H : TESTED A T [facility] 6720 (BEAKER) (test code = [facility], 153) 99667: Elementary Instructional Coach/Techni bill ID = [id number] for CA BRAD OSORIO POCT-GLUCOSE [id number] 09:36:00 Test Item Value Reference Range Interpretation Comments POC-GLUCOSE METER 259 mg/dL 70-110 H : TESTED A T [facility] 6720 (BEAKER) (test code = [facility], [facility]) 38414: Elementary Instructional Coach/Techni bill ID = [id number] for PATRICIA BRITTON [id number] 04:16:00 Test Item Value Reference Range Interpretation Comments MAGNESIUM (BEAKER) (test code = 1.8 mg/dL 1.6-2.6 627) Elementary Instructional Coach ID - EDASIBASIC METABOLIC [id number] 04:16:00 Test Item Value Reference Range Interpretation Comments SODIUM (BEAKER) 136 meq/L 136-145 (test code = 381) POTASSIUM (BEAKER) 4.5 meq/L 3.5-5.1 (test code = 379) CHLORIDE (BEAKER) 104 meq/L 98-107 (test code = 382) CO2 (BEAKER) (test 22 meq/L 22-29 code = 355) BLOOD UREA NITROGEN 21 mg/dL 7-21 (BEAKER) (test code = 354) CREATININE (BEAKER) 1.11 mg/dL 0.57-1.25 (test code = 358) GLUCOSE RANDOM 240 mg/dL 70-105 H (BEAKER) (test code = 652) CALCIUM (BEAKER) 8.7 mg/dL 8.4-10.2 (test code = 697) EGFR (BEAKER) (test 65 mL/min/1.73 ESTIMA DIXIE GFR IS code = 1092) sq m NOT ACCURATE CREATININE CLEARANCE IN PREDICTING GLOMERULAR FILTRATION RATE . ESTIMATED GFR I S NOT APPLICABLE FOR DIALYSIS PATIEN TS. Elementary Instructional Coach ID - [id number] 04:16:00 Test Item Value Reference Range Interpretation Comments PHOSPHORUS (BEAKER) (test code = 3.0 mg/dL 2.3-4.7 604) Elementary Instructional Coach ID - EDASICBC (HEMOGRAM ONLY)2020-06-23 03:49:00 Test Item Value Reference Range Interpretation Comments WHITE BLOOD CELL COUNT (BEAKER) 5.1 K/ L 3.5-10.5 (test code = 775) RED BLOOD CELL COUNT (BEAKER) 4.01 M/ L 4.63-6.08 L (test code = 761) HEMOGLOBIN (BEAKER) (test code = 11.8 GM/DL 13.7-17.5 L 410) HEMATOCRIT (BEAKER) (test code = 35.9 % 40.1-51.0 L 411) MEAN CORPUSCULAR VOLUME (BEAKER) 89.5 fL 79.0-92.2 (test code = 753) MEAN CORPUSCULAR HEMOGLOBIN 29.4 pg 25.7-32.2 (BEAKER) (test code = 751) MEAN CORPUSCULAR HEMOGLOBIN CONC 32.9 GM/DL 32.3-36.5 (BEAKER) (test code = 752) RED CELL DISTRIBUTION WIDTH 13.0 % 11.6-14.4 (BEAKER) (test code = 412) PLATELET COUNT (BEAKER) (test 147 K/CU MM 150-450 L code = 756) MEAN PLATELET VOLUME (BEAKER) 10.7 fL 9.4-12.4 (test code = 754) NUCLEATED RED BLOOD CELLS 0 /100 WBC 0-0 (BEAKER) (test code = 413) POCT-GLUCOSE [id number] 21:51:00 Test Item Value Reference Range Interpretation Comments POC-GLUCOSE METER 125 mg/dL 70-110 H : TESTED A T [facility] 6720 (BEAKER) (test code = [facility] [place], 1538) 24203: Elementary Instructional Coach/Techni bill ID = [id number] for ERNESTINA ZUNIGA POCT-GLUCOSE [id number] 16:28:00 Test Item Value Reference Range Interpretation Comments POC-GLUCOSE METER 232 mg/dL 70-110 H : TESTED A T [facility] 6720 (FARHAD) (test code = [facility] [place], 1538) 16674: Elementary Instructional Coach/Techni bill ID = [id number] for BARBER REDDY SARS-COV2/RT-PCR ([facility])2020-06-22 14:28:00 Test Item Value Reference Range Interpretation Comments SARS-COV2/RT-PCR (test Negative Not Detected, Negative, code = 4735253) See external report for linked test SARS-COV-[address] [facility] [place] (test code = 0506925) Negative result for this test determines that SARS-CoV-2 RNA was not present in the specimen above the Limit of Detection (LOD). However, Negative results do not preclude SARS-CoV-2 infection and should not be used as the sole basis for treatment or patient management decisions. Negative results mustbe combined with clinical observations, patient history, and epidemiological information. A false negative result may occur if a specimen is improperly collected, transported or handled. A false negative result should be considered if patient's recent exposures or clinical presentation indicate that COVID-19 (SARS-CoV-2) is likely and diagnostic tests for other causes of illness are negative. Re-testing should be considered in cases of suspected false negatives.The limit of detection for this assay is 800 copies/mL.This SARS CoV-2 test is a real-time RT-PCR test intended for the qualitative detection of nucleic acid from SARS-CoV-2 in a nasopharyngeal swab specimen collected from individuals susp ected of COVID-19 by their healthcare provider.This test has not been Food and Drug Administration (FDA) cleared or approved. This is a modified version of an approved Emergency Use Authorization (EUA) and is in the process of review by the FDA. Once authorized by the FDA, the issued EUA will be effective until the declaration that circumstances exist justifying the authorization of the emergency use of in vitro diagnostic tests for detection and/or diagnosis of COVID-19 is terminated under Section 564(b)(2) of the Act or the EUA is revoked under Section 564(g) of the Act.Fact Sheet for Healthcare Providers:https://www.Asantae/sites/default/files/product/documents/Fact_Sheselma lovem_XP_Qdyohfqts_Dehk_OUSN-TbE-0.pdfFact Sheet for Healthcare Patients:https://www.As[employer]/sites/default/files/product/ documents/Kxci_Xpbsl_Plzhpcwc_Btkd_ZCQK-IzE-7.pdfPerforming Laboratory:[facility], [place] [address]AYDQ-[id number] METER 2020-06-22 13:52:00 Test Item Value Reference Range Interpretation Comments POC-GLUCOSE METER 308 mg/dL 70-110 H : TESTED A T [facility] 6720 (BEAKER) (test code = [facility], 1538) 60359: Elementary Instructional Coach/Techni bill ID = [id number] for BARBER REDDY POCT-GLUCOSE [id number] 10:59:00 Test Item Value Reference Range Interpretation Comments POC-GLUCOSE METER 238 mg/dL 70-110 H : TESTED A T [facility] 6720 (BEAKER) (test code = [facility] Ajit [facility], 1538) 24929: Elementary Instructional Coach/Techni bill ID = [id number] for BARBER REDDY VANCOMYCIN LEVEL, [id number] 05:38:00 Test Item Value Reference Range Interpretation Comments VANCOMYCIN TROUGH (BEAKER) (test 9.4 ug/mL 10.0-20.0 L code = 522) Elementary Instructional Coach ID - UVALDOB-TYPE NATRIURETIC FACTOR (BNP)2020-06-22 04:55:00 Test Item Value Reference Range Interpretation Comments B-TYPE NATRIURETIC PEPTIDE (BEAKER) 662 pg/mL 0-100 H (test code = 700) Elementary Instructional Coach ID - ADRIANAAYA LBASIC METABOLIC [id number] 04:55:00 Test Item Value Reference Range Interpretation Comments SODIUM (BEAKER) 139 meq/L 136-145 (test code = 381) POTASSIUM (BEAKER) 4.2 meq/L 3.5-5.1 (test code = 379) CHLORIDE (BEAKER) 107 meq/L 98-107 (test code = 382) CO2 (BEAKER) (test 22 meq/L 22-29 code = 355) BLOOD UREA NITROGEN 26 mg/dL 7-21 H (BEAKER) (test code = 354) CREATININE (BEAKER) 1.08 mg/dL 0.57-1.25 (test code = 358) GLUCOSE RANDOM 178 mg/dL 70-105 H (BEAKER) (test code = 652) CALCIUM (BEAKER) 8.6 mg/dL 8.4-10.2 (test code = 697) EGFR (BEAKER) (test 67 mL/min/1.73 ESTIMA DIXIE GFR IS code = 1092) sq m NOT ACCURATE CREATININE CLEARANCE IN PREDICTING GLOMERULAR FILTRATION RATE . ESTIMATED GFR I S NOT APPLICABLE FOR DIALYSIS PATIEN TS. Elementary Instructional Coach ID - [id number] 04:55:00 Test Item Value Reference Range Interpretation Comments MAGNESIUM (BEAKER) (test code = 1.8 mg/dL 1.6-2.6 627) Elementary Instructional Coach ID - [id number] 04:55:00 Test Item Value Reference Range Interpretation Comments PHOSPHORUS (BEAKER) (test code = 3.0 mg/dL 2.3-4.7 604) Elementary Instructional Coach ID - EDASICBC (HEMOGRAM ONLY)2020-06-22 04:34:00 Test Item Value Reference Range Interpretation Comments WHITE BLOOD CELL COUNT (BEAKER) 6.0 K/ L 3.5-10.5 (test code = 775) RED BLOOD CELL COUNT (BEAKER) 3.88 M/ L 4.63-6.08 L (test code = 761) HEMOGLOBIN (BEAKER) (test code = 11.4 GM/DL 13.7-17.5 L 410) HEMATOCRIT (BEAKER) (test code = 34.6 % 40.1-51.0 L 411) MEAN CORPUSCULAR VOLUME (BEAKER) 89.2 fL 79.0-92.2 (test code = 753) MEAN CORPUSCULAR HEMOGLOBIN 29.4 pg 25.7-32.2 (BEAKER) (test code = 751) MEAN CORPUSCULAR HEMOGLOBIN CONC 32.9 GM/DL 32.3-36.5 (BEAKER) (test code = 752) RED CELL DISTRIBUTION WIDTH 13.2 % 11.6-14.4 (BEAKER) (test code = 412) PLATELET COUNT (BEAKER) (test 137 K/CU MM 150-450 L code = 756) MEAN PLATELET VOLUME (BEAKER) 10.5 fL 9.4-12.4 (test code = 754) NUCLEATED RED BLOOD CELLS 0 /100 WBC 0-0 (BEAKER) (test code = 413) COMPREHENSIVE METABOLIC [id number] 23:56:00 Test Item Value Reference Range Interpretation Comments TOTAL PROTEIN 6.7 gm/dL 6.0-8.3 (BEAKER) (test code = 770) ALBUMIN (BEAKER) 3.9 g/dL 3.5-5.0 (test code = 1145) ALKALINE PHOSPHATASE 90 U/L 40-150 (BEAKER) (test code = 346) BILIRUBIN TOTAL 0.4 mg/dL 0.2-1.2 (BEAKER) (test code = 377) SODIUM (BEAKER) (test 136 meq/L 136-145 code = 381) POTASSIUM (BEAKER) 4.6 meq/L 3.5-5.1 (test code = 379) CHLORIDE (BEAKER) 105 meq/L 98-107 (test code = 382) CO2 (BEAKER) (test 20 meq/L 22-29 L code = 355) BLOOD UREA NITROGEN 27 mg/dL 7-21 H (BEAKER) (test code = 354) CREATININE (BEAKER) 1.24 mg/dL 0.57-1.25 (test code = 358) GLUCOSE RANDOM 272 mg/dL 70-105 H (BEAKER) (test code = 652) CALCIUM (BEAKER) 8.9 mg/dL 8.4-10.2 (test code = 697) AST (SGOT) (BEAKER) 13 U/L 5-34 (test code = 353) ALT (SGPT) (BEAKER) 21 U/L 6-55 (test code = 347) EGFR (BEAKER) (test 57 mL/min/1.73 ESTIMA DIXIE GFR IS code = 1092) sq m NOT ACCURATE CREATININE CLEARANCE IN PREDICTING GLOMERULAR FILTRATION RATE . ESTIMATED GFR I S NOT APPLICABLE FOR DIALYSIS PATIEN TS. Elementary Instructional Coach ID - PIAYA LPROTHROMBIN [id number] 23:40:00 Test Item Value Reference Range Interpretation Comments PROTIME (BEAKER) (test code = 13.3 seconds 11.9-14.2 759) INR (BEAKER) (test code = 370) 1.04 <=5.90 Effective 12/08/2018: PT Reference Range ChangeNew: 11.9-14.2 Previous: 11.7- 14.7RECOMMENDED COUMADIN/WARFARIN INR THERAPY RANGESSTANDARD DOSE: 2.0-3.0 Includes: PROPHYLAXIS for venous thrombosis, systemic embolization; TREATMENT for venous thrombosis and/or pulmonary embolus.HIGH RISK: Target INR is2.5-3.5 for patients wiht mechanical heart valves.CBC W/PLT COUNT & AUTO [id number] 23:34:00 Test Item Value Reference Range Interpretation Comments WHITE BLOOD CELL COUNT (BEAKER) 6.7 K/ L 3.5-10.5 (test code = 775) RED BLOOD CELL COUNT (BEAKER) 4.25 M/ L 4.63-6.08 L (test code = 761) HEMOGLOBIN (BEAKER) (test code = 12.4 GM/DL 13.7-17.5 L 410) HEMATOCRIT (BEAKER) (test code = 37.9 % 40.1-51.0 L 411) MEAN CORPUSCULAR VOLUME (BEAKER) 89.2 fL 79.0-92.2 (test code = 753) MEAN CORPUSCULAR HEMOGLOBIN 29.2 pg 25.7-32.2 (BEAKER) (test code = 751) MEAN CORPUSCULAR HEMOGLOBIN CONC 32.7 GM/DL 32.3-36.5 (BEAKER) (test code = 752) RED CELL DISTRIBUTION WIDTH 13.4 % 11.6-14.4 (BEAKER) (test code = 412) PLATELET COUNT (BEAKER) (test 148 K/CU MM 150-450 L code = 756) MEAN PLATELET VOLUME (BEAKER) 10.8 fL 9.4-12.4 (test code = 754) NUCLEATED RED BLOOD CELLS 0 /100 WBC 0-0 (BEAKER) (test code = 413) NEUTROPHILS RELATIVE PERCENT 72 % (BEAKER) (test code = 429) LYMPHOCYTES RELATIVE PERCENT 16 % (BEAKER) (test code = 430) MONOCYTES RELATIVE PERCENT 9 % (BEAKER) (test code = 431) EOSINOPHILS RELATIVE PERCENT 3 % (BEAKER) (test code = 432) BASOPHILS RELATIVE PERCENT 0 % (BEAKER) (test code = 437) NEUTROPHILS ABSOLUTE COUNT 4.83 K/ L 1.78-5.38 (BEAKER) (test code = 670) LYMPHOCYTES ABSOLUTE COUNT 1.08 K/ L 1.32-3.57 L (BEAKER) (test code = 414) MONOCYTES ABSOLUTE COUNT (BEAKER) 0.57 K/ L 0.30-0.82 (test code = 415) EOSINOPHILS ABSOLUTE COUNT 0.18 K/ L 0.04-0.54 (BEAKER) (test code = 416) BASOPHILS ABSOLUTE COUNT (BEAKER) 0.03 K/ L 0.01-0.08 (test code = 417) IMMATURE GRANULOCYTES-RELATIVE 0 % 0-1 PERCENT (BEAKER) (test code = 2801) POCT-GLUCOSE [id number] 21:43:00 Test Item Value Reference Range Interpretation Comments POC-GLUCOSE METER 215 mg/dL 70-110 H : [facility] (BEAKER) (test code = [facility] [place], 1538) [address]86[address]: Elementary Instructional Coach/Techni bill ID = [id number] for Mona villegas Chante SARS-COV2/RT-PCR ([facility])2019-11-26 08:33:00 Test Item Value Reference Range Interpretation Comments SARS-COV2/RT-PCR (test Not Detected Not Detected, Negative code = 4080329) SARS-COV-[address] [facility] (test code = 0917908) Negative results do not preclude SARS-CoV-2 infection and should not be used as the sole basis for patient management decisions. Negative results must be combined with clinical observations, patient history, and epidemiological information. A false negative result may occur if a specimen is improperly collected, transported or handled.The limit of detection for this assay is 250 copies/mL.This SARS CoV-2 test is a rapid, real-time RT-PCR test intended for the qualitative detection of nucleic acid from SARS-CoV-2 in a nasopharyngeal swab specimen collected from individuals suspected of COVID-19 by their healthcare provider.This test has not been Food and Drug Administration (FDA) cleared or approved and has been authorized by FDA under an Emergency Use Authorization (EUA). This EUA will be effective until the declaration that circumstances exist justifying the authorization of the emergency use of in vitro diagnostic tests for detection and/or diagnosis of COVID-19 is terminated under Section 564(b)(2) of the Act or the EUA is revoked under Section 564(g) of the Act.Fact Sheet for Healthcare Pro viders:https://www.MobileApps.com/Documents/Xpert%20Xpress%20SARS%20CoV-2/Fact%20Sh eets/3023802%28GDYR-LJD-2%20HEALTHCARE%20PROVIDERS%20FACT%20SHEET.pdfFact Sheet for Healthcare Patients:https://www.Community Cash/Documents/Xpert%20Xpress%20SARS%20CoV-2/Fact%20Sheets/3023801%20SARS-COV -2%20PATIENT%20FACT%20SHEET.pdfPerforming Laboratory:[facility] [place] [address]
[2021-08-26 08:05] LABS: Absolute Lymphocytes (CBC) 0.8 K/uL (0.7-4.9); Hematocrit 39.3 % (39.6-49.0); Lymphocytes % 15.2 % (15.3-44.8); RBC Red Blood Cell Count 4.48 M/uL (4.33-5.43)
[2021-08-26 08:10] LABS: Protime INR 1.05
[2021-08-26 08:20] LABS: Potassium 4.3 mmol/L (3.5-5.1)
[2021-08-26] MEDS ORDERED: NA CHLORIDE 0.9% 0 ML ONE (08:31)
[2021-08-26] MEDS ORDERED: NACL 0.9% IRR SOLN 2,000 ML IRR ONE (08:34)
[2021-08-26] MEDS ORDERED: ONDANSETRON 4 MG/2 ML VIAL ONE (09:01)
[2021-08-26] MEDS ORDERED: MORPHINE 4 MG/ML SYR ONE ×2 (09:01→09:57)
--- NOTE | 2021-08-26 09:24 | RAD REPORT ---
EXAM DESCRIPTION: CTAbdomen Pelvis W Contrast - 08/26/2021 9:12 am CLINICAL HISTORY: recent prostate surgery, ecchymosis abd wall, hematuria COMPARISON: Abdomen Pelvis W Contrast dated 11/26/2019 TECHNIQUE: CT of the abdomen and pelvis was performed. All CT scans are performed using dose optimization technique as appropriate and may include automated exposure control or mA/KV adjustment according to patient size. FINDINGS: Lower chest: Coronary artery stents. Liver: No acute abnormality or suspicious lesions. Biliary: No biliary ductal dilatation. Stomach: No significant focal abnormality. Duodenum: No significant focal abnormality. Pancreas: Atrophic pancreas. Spleen: No significant abnormality. Adrenal: No suspicious lesions. Kidney/ureter: Right renal scarring. Renal vascular calcifications. No renal calculi. Retroperitoneum: No retroperitoneal adenopathy. Vascular: Atherosclerosis Bowel: Diverticulosis. No evidence of acute diverticulitis. No bowel obstruction.. Peritoneum: No ascites or free air. Small fat containing inguinal hernias. Bladder: Rounded hyperdensity in the bladder measuring 6.6 cm. The bladder is distended. Reproductive: No adnexal masses. Bones: No acute fracture. Sclerotic focus in L4 is likely a bone island. Other: n/a IMPRESSION: Rounded moderate sized hyperdense structure in the bladder likely representing blood dalila t. Modestly distended bladder. Correlate for urinary retention. No hydronephrosis.
[2021-08-26] MEDS ORDERED: FENTANYL CITR 100 MCG/2 ML ONE ×2 (10:08→12:04)
--- NOTE | 2021-08-26 10:54 | EDPHYS ---
Physician Documentation [facility] [place], [place] Bharti Name: Keny Costa Age: 71 yrs Sex: Male : 1950 Arrival Date: 08/26/2021 Time: 07:51 Bed 7 Private MD: ED Physician Sami Burkett HPI: 08/26 07:54 This 71 yrs old Male presents to ER via Unassigned with complaints of hematuria. rn 07:54 The patient presents with urinary symptoms, dysuria, hematuria. Onset: The rn symptoms/episode began/occurred just prior to arrival. Modifying factors: The symptoms are alleviated by nothing, the symptoms are aggravated by urinating. Associated signs and symptoms: Pertinent positives: dysuria, hematuria, Pertinent negatives: abdominal pain, fever, vomiting. Severity of symptoms: At their worst the symptoms were moderate, in the emergency department the symptoms are unchanged. The patient has experienced a previous episode. The patient has been recently seen by a physician:. Pt reports gross hematuria that began this morning, s/p prostate surgery, states "shaved", 3 weeks ago at [facility]. No fever. No chest pain/sob/abd pain. Reports takes plavix and aspirin. Reports had mild hematuria when had post-op powers but stopped. Reports noticed blood in urine when urinating this AM. . Historical: - Allergies: 07:52 PENICILLINS; ll1 07:52 Snkjnec-Sdj-Pog Reductase Inhibitors ("aches"); ll1 - PMHx: 07:52 Diabetes - NIDDM; Hypertension; High Cholesterol; CHF; Myocardial infarction; PVD; ll1 Rheumatoid Arthritis; CAD; BPH; - PSHx: 07:52 "prostate shaving"; ll1 - Immunization history:: Client reports receiving the 2nd dose of the Covid vaccine. - Social history:: Smoking status: Patient denies any tobacco usage or history of. - Family history:: not pertinent. - Hospitalizations: : No recent hospitalization is reported. ROS: 07:54 Constitutional: Negative for fever, chills, and weight loss, Eyes: Negative for injury, rn pain, redness, and discharge, Neck: Negative for injury, pain, and swelling, Cardiovascular: Negative for chest pain, palpitations, and edema, Respiratory: Negative for shortness of breath, cough, wheezing, and pleuritic chest pain, Abdomen/GI: Negative for nausea, vomiting, diarrhea, and constipation, Back: Negative for injury and pain, : + hematuria MS/Extremity: Negative for injury and deformity, Skin: Negative for injury, rash, and discoloration, Neuro: Negative for headache, numbness, tingling, and seizure. Exam: 07:54 Constitutional: This is a well developed, well nourished patient who is awake, alert, rn and in no acute distress. Head/Face: Normocephalic, atraumatic. Eyes: Normal conjunctivae Cardiovascular: Regular rate and rhythm. No pulse deficits. Respiratory: No increased work of breathing, no retractions or nasal flaring. Abdomen/GI: Soft, non-tender, 2 areas of ecchymosis; suprapubic and periumbilical ecchymosis. Male : Gross hematuria evident with clot squeezed out of meatus. Skin: Warm, dry MS/ Extremity: Pulses equal, no cyanosis. Neuro: Awake and alert, GCS 15 08:24 ECG was reviewed by the Attending Physician. rn Vital Signs: 07:53 Pain 4/10; ll1 07:55 BP 119 / 51; Pulse 78; Resp 16; Temp 98.6; Pulse Ox 99% ; Weight 127.01 kg; Height 5 cb5 ft. 7 in. (170.18 cm); Pain 3/10; 09:05 BP 139 / 51; Pulse 78; Resp 16; Pulse Ox 98% ; Pain 6/10; cb5 10:08 BP 137 / 126; Pulse 80; Resp 18; Pulse Ox 98% ; Pain 8/10; cb5 12:05 BP 107 / 85; Pulse 70; Resp 16; Temp 98.6; Pulse Ox 98% ; Pain 7/10; cb5 07:55 Body Mass Index 43.85 (127.01 kg, 170.18 cm) cb5 MDM: 07:52 Patient medically screened. rn 09:43 ED course: Unable to pass three-way catheter despite multiple attempts, nursing to rn place smaller catheter. . 10:53 Differential diagnosis: urinary retention, hematuria. Data reviewed: vital signs, rn nurses notes, lab test result(s), radiologic studies, CT scan, and as a result, I will admit patient. Counseling: I had a detailed discussion with the patient and/or guardian regarding: the historical points, exam findings, and any diagnostic results supporting the discharge/admit diagnosis, lab results, radiology results, the need for further work-up and treatment in the hospital, the need to transfer to another facility, continuity of care. Response to treatment: the patient's symptoms have mildly improved after treatment, and as a result, I will admit patient. Admission orders: after a detailed discussion of the patient's condition and case, the admit orders are written by me. 08/26 07:53 Order name: CBC with Diff; Complete Time: 08:21 rn 08/26 07:53 Order name: Basic Metabolic Panel; Complete Time: 09:24 rn 08/26 07:53 Order name: Protime (+inr); Complete Time: 08:21 rn 08/26 07:53 Order name: Ptt, Activated; Complete Time: 08:21 rn 08/26 07:54 Order name: Type And Screen; Complete Time: 09:24 rn 08/26 08:05 Order name: CT Abd/Pelvis - IV Contrast Only; Complete Time: 09:27 rn 08/26 10:43 Order name: ABO/RH no charge; Complete Time: 10:49 EDMS 08/26 07:53 Order name: IV Start; Complete Time: 08:04 rn 08/26 07:53 Order name: Urine Dipstick-Ancillary (obtain specimen) rn 08/26 07:53 Order name: Hematuria powers cath rn 08/26 07:53 Order name: Bladder Irrigation rn 08/26 07:53 Order name: EKG; Complete Time: 07:54 rn 08/26 07:53 Order name: EKG - Nurse/Tech; Complete Time: 08:17 rn 08/26 07:53 Order name: Cardiac monitoring; Complete Time: 08:04 rn EC:24 Rate is 64 beats/min. Rhythm is regular. QRS [place] is Normal. SC interval is prolonged rn at 220 msec. QRS interval is prolonged at 132 msec. QT interval is normal. No Q waves. T waves are Normal. No ST changes noted. Clinical impression: 1st degree heart block. Interpreted by me. Reviewed by me. Administered Medications: 09:07 Drug: morphine 4 mg Route: IVP; Site: right antecubital; cb5 09:07 Drug: Zofran (Ondansetron) 4 mg Route: IVP; Site: right antecubital; cb5 10:01 Drug: morphine 4 mg Route: IVP; Site: right antecubital; cb5 10:08 Drug: fentaNYL (PF) 50 mcg Route: IVP; Site: right antecubital; cb5 12:04 Drug: fentaNYL (PF) 50 mcg Route: IVP; Site: right antecubital; cb5 Disposition Summary: 08/26/21 10:54 Transfer Ordered Transfer Location: [facility] rn Reason: Higher level of care rn Condition: Stable rn Problem: new rn Symptoms: are unchanged rn Accepting Physician: Dr. Donis(08/26/21 12:13) bp Diagnosis - Gross hematuria rn - Retention of urine, unspecified rn Forms: - Medication Reconciliation Form rn - SBAR form rn Signatures: Dispatcher [employer] EDMS Julio Lopez PA PA jmm Nieto, Roman, MD MD rn Peltier, Brian, RN RN Rajendra Alexandra RN RN ll1 Abigail oLpez RN RN cb5 Corrections: (The following items were deleted from the chart) 12:13 10:54 Dr. Donis rn bp
--- NOTE | 2021-08-26 10:54 | ER ---
Nurse's Notes [facility] Name: Keny Costa Age: 71 yrs Sex: Male : 1950 Arrival Date: 08/26/2021 Time: 07:51 Bed 7 Private MD: Diagnosis: Gross hematuria;Retention of urine, unspecified Presentation: 08/26 07:53 Chief complaint: Patient states: Bloody urine with clots in it started today. Had ll1 "prostate shaving" 08/05/21. No fever. Bruising noted to abdominal area. Coronavirus screen: Vaccine status: Patient reports receiving the 2nd dose of the covid vaccine. Client denies travel out of the [place] in the last 14 days. At this time, the client does not indicate any symptoms associated with coronavirus-19. Ebola Screen: Patient denies travel to an Ebola-affected area in the 21 days before illness onset. Initial Sepsis Screen: Does the patient meet any 2 criteria? No. Patient's initial sepsis screen is negative. Does the patient have a suspected source of infection? Yes: Dysuria/Frequency/Urgency/UTI. Risk Assessment: Do you want to hurt yourself or someone else? Patient reports no desire to harm self or others. Onset of symptoms was August 26, 2021. 07:53 Method Of Arrival: EMS ll1 07:53 Acuity: GEOVANY 3 ll1 07:54 Chief complaint: EMS states: VSS. Pale, diaphoretic initially. 18 G R AC , zofran 4 mg ll1 IV and 100 ml NS bolus given. Sinus rhythm HR 60's. Triage Assessment: 07:51 General: Appears uncomfortable, obese, well groomed, Behavior is calm, cooperative, cb5 appropriate for age. Pain: Complains of pain in pelvis Pain currently is 3 out of 10 on a pain scale. Pain began 1 hour ago. Historical: - Allergies: 07:52 PENICILLINS; ll1 07:52 Kgaqtvb-Vyu-Mna Reductase Inhibitors ("aches"); ll1 - PMHx: 07:52 Diabetes - NIDDM; Hypertension; High Cholesterol; CHF; Myocardial infarction; PVD; ll1 Rheumatoid Arthritis; CAD; BPH; - PSHx: 07:52 "prostate shaving"; ll1 - Immunization history:: Client reports receiving the 2nd dose of the Covid vaccine. - Social history:: Smoking status: Patient denies any tobacco usage or history of. - Family history:: not pertinent. - Hospitalizations: : No recent hospitalization is reported. Screenin:55 Abuse screen: Denies threats or abuse. Denies injuries from another. Nutritional cb5 screening: No deficits noted. Tuberculosis screening: No symptoms or risk factors identified. Fall Risk None identified. Assessment: 07:55 General: Appears uncomfortable, Behavior is calm, cooperative. Pain: Complains of pain cb5 in pelvis Pain currently is 3 out of 10 on a pain scale. Neuro: No deficits noted. Cardiovascular: No deficits noted. Respiratory: No deficits noted. Respiratory: No deficits noted. GI: No deficits noted. : Reports cramping, discharge, bloody, pain with urination, pt reports he had prostate surgery last month on the . Woke up this morning with discomfort and was urinating blood. EENT: No deficits noted. EENT: No deficits noted. Derm: No deficits noted. Musculoskeletal: No deficits noted. 08:35 Reassessment: Attempted to place coude [address] indweliing f/c. had cb5 resistance informed M.D. will attempt indwelling f/c after patient receives pain medication and returns back from CT scan. 09:30 Reassessment: placed 16 kazakh indwelling f/c using wet process technician, received blood in cb5 return. Irrigated indwelling f/c with sterile saline 1000ml, large blood clots in return. . 10:31 Pain: Pain currently is 5 out of 10 on a pain scale. at worst was 8 out of 10 on a pain cb5 scale. Quality of pain is described as sharp, tender, pt states if feels like "spasms". 11:30 Reassessment: report was called tp Fabiola Greene R.N. at [phone] . 12:06 Reassessment: EMS is here to transfer patient to [facility] Vital Signs: 07:53 Pain 4/10; ll1 07:55 BP 119 / 51; Pulse 78; Resp 16; Temp 98.6; Pulse Ox 99% ; Weight 127.01 kg; Height 5 5 ft. 7 in. (170.18 cm); Pain 3/10; 09:05 BP 139 / 51; Pulse 78; Resp 16; Pulse Ox 98% ; Pain 6/10; cb5 10:08 BP 137 / 126; Pulse 80; Resp 18; Pulse Ox 98% ; Pain 8/10; cb5 12:05 BP 107 / 85; Pulse 70; Resp 16; Temp 98.6; Pulse Ox 98% ; Pain 7/10; cb5 07:55 Body Mass Index 43.85 (127.01 kg, 170.18 cm) cb5 ED Course: 07:51 Patient arrived in ED. ll1 07:52 Sami Burkett MD is Attending Physician. rn 07:52 Arm band placed on Patient placed in an exam room, on a stretcher. ll1 07:54 Triage completed. ll1 07:55 Allergy band placed. Bed in low position. Call light in reach. Side rails up X 1. Side cb5 rails up X2. 08:04 Abigail Lopez, ANDERSON is Primary Nurse. cb5 08:04 Type And Screen Sent. cb5 08:04 Protime (+inr) Sent. cb5 08:04 Ptt, Activated Sent. cb5 08:04 CBC with Diff Sent. cb5 08:04 Basic Metabolic Panel Sent. cb5 08:17 EKG done, by ED staff, reviewed by Sami Burkett MD. em1 09:12 CT Abd/Pelvis - IV Contrast Only In Process Unspecified. EDMS 10:33 initiated transfer to [facility]. bd Administered Medications: 09:07 Drug: morphine 4 mg Route: IVP; Site: right antecubital; cb5 09:07 Drug: Zofran (Ondansetron) 4 mg Route: IVP; Site: right antecubital; cb5 10:01 Drug: morphine 4 mg Route: IVP; Site: right antecubital; cb5 10:08 Drug: fentaNYL (PF) 50 mcg Route: IVP; Site: right antecubital; cb5 12:04 Drug: fentaNYL (PF) 50 mcg Route: IVP; Site: right antecubital; cb5 Outcome: 10:54 ER care complete, transfer ordered by . rn 12:13 Patient left the ED. bp Signatures: Dispatcher MedHost EDMS Mary Gonsalez bd Sami Burkett MD MD rn Martinez, Eric em1 Jd Summers RN RN bp Rajendra Sethi, RN RN ll1 Abigail Lopez, RN RN cb5
[2021-08-26 12:19] VITALS: TEMP 98.6
[2021-08-26 12:20] VITALS: O2SAT 98
[2021-08-26 12:23] VITALS: BP 107/85
--- NOTE | 2021-08-27 10:20 | EKG ---
Test Date: 2021-08-26 Test Time: 08:10:52 Dance Teacher: UMESH MEASUREMENT RESULTS: Intervals: Rate: 64 OH: 250 QRSD: 132 QT: 486 QTc: 501 [place]: P: 51 OH: 250 QRS: 113 T: 31 INTERPRETIVE STATEMENTS: Sinus rhythm with 1st degree AV block Right bundle branch block Abnormal ECG Compared to ECG 04/12/2021 14:15:28 First degree AV block now present Ventricular premature complex(es) no longer present Myocardial infarct finding no longer present Electronically Signed On 08-27-21 10:14:54 DISABILITIES CAREGIVER by Sonny Menendez
== END 2021-08-26 12:13 | disposition short-term general hospital (02) ==
LOC: ER 07:51
DX: R31.0 Gross hematuria (principal); R33.9 Retention of urine, unspecified; I10 Essential (primary) hypertension; E11.9 Type 2 diabetes mellitus without complications; Z88.0 Allergy status to penicillin; Z88.8 Allergy status to other drugs, medicaments and biological substances
CPT/HCPCS: 93005; 85025; 80048; 36415; 86900; 86850; 85610; 86901; 85730; 74177; 96375; 96374; 99284; Q9967; J3010 ×2; J2405; J7030

== ENCOUNTER 2021-10-22 08:30 | Day surgery (SDC) | payer OTHER, BC ==
[2021-10-18 14:59] LABS: Absolute Lymphocytes (CBC) 0.8 K/uL (0.7-4.9); Hematocrit 37.8 % (39.6-49.0); Lymphocytes % 15.1 % (15.3-44.8); MPV 8.1 fL (7.6-11.3); RBC Red Blood Cell Count 4.58 M/uL (4.33-5.43)
[2021-10-18 15:04] LABS: Protime INR 1.05
[2021-10-18 15:32] LABS: Potassium 4.6 mmol/L (3.5-5.1)
--- NOTE | 2021-10-18 15:41 | RAD REPORT ---
EXAM DESCRIPTION: RAD - Chest Pa And Lat (2 Views) - 10/18/2021 3:09 pm CLINICAL HISTORY: Pre op pending angiogram COMPARISON: Two view chest 04/12/2021 TECHNIQUE: Frontal and lateral views of the chest were obtained. FINDINGS: The lungs are clear of peripheral mass or consolidation. Interstitial pattern matches comp arison. No marjorie mass or lymphadenopathy. Heart size is normal and central vasculature is within nor mal limits. No pleural effusion or pneumothorax seen. No acute bony finding noted. No aortic abnor mality. No significant change from comparison study. IMPRESSION: No acute cardiopulmonary process.
[~2021-10-22 08:30] MED LIST: HEPA 1000U/500MLS 0 UNIT/0 ML BAG IV ONE; HEPA 1000U/500MLS 1,000 UNIT/500 ML BAG IV ONE; LIDOCAINE 1% 20 ML MDV ONE
[2021-10-22] MEDS ORDERED: NA CHLORIDE 0.9% 500 ML ONE (08:38)
[2021-10-22] MEDS ORDERED: HEPA 1000U/500MLS 2,000 UNIT/1,000 ML BAG IV ONE (09:38)
[2021-10-22] MEDS ORDERED: LIDOCAINE 1% 20 ML MDV ONE (09:38)
[2021-10-22] MEDS ORDERED: ATROPINE SULF 1 MG/10 ML SYR IV ONE ×2 (09:38→11:11)
[2021-10-22] MEDS ORDERED: MIDAZOLAM HCL 2 MG/2 ML INJ ONE (09:39)
[2021-10-22] MEDS ORDERED: FENTANYL CITR 100 MCG/2 ML ONE (09:39)
[2021-10-22] MEDS ORDERED: LIDOCAINE 1% MPF 5 ML VIAL ONE (10:47)
--- NOTE | 2021-10-22 11:09 | OP ---
Surgeon: Sonny Menendez MD Field Service Manager: Ms. Phyllis Vee. The patient will remain in the hospital for 2 hours of bedrest. Continue home medication. I will ma ke arrangements for the intervention on his left and right SFA in the near future as an outpatient. Admitted to my service on 10/22/2021 as an outpatient for abdominal angiogram with runoff. Indication: Peripheral arterial disease, abnormal arterial Doppler, claudication, status post left S FA stent in the past. Procedure In Detail: Mr. Costa was brought to the track laborer as an outpatient, prepped and draped in th e routine sterile fashion. Given Versed and fentanyl for sedation. A 6-Armenian sheath introduced in the right common femoral artery successfully. Angiography there was normal. StarClose was used to c lose the case. The pigtail catheter was inserted above the renals. An abdominal angiogram with runo ff revealed diffuse plaquing in the aorta, common femoral artery, common iliac artery. There were se landon in-stent restenosis of the left SFA, severe stenosis of the right SFA in the mid and distal area , diffuse plaquing below the knees bilaterally. Normal renals. He had 100% occlusion of the right a nterior tibial. There were no complications. Blood Loss: 5 mL. Postoperative Diagnosis: Peripheral arterial disease. Plan: Plan for a stage SFA stent on the left and right with possible stent and atherectomy. We will have Dr. Pak review the film and can do this case as an outpatient. Anesthesia: Total conscious sedation was 45 minutes. NB/MODL Voice ID: [id number] Report ID: [id number]
[2021-10-22 12:54] VITALS: BP 151/68; O2SAT 95
== END 2021-10-22 12:55 | disposition home or self-care (01) ==
LOC: CCL 08:30
DX: I70.213 Atherosclerosis of native arteries of extremities with intermittent claudication, bilateral legs (principal); I70.92 Chronic total occlusion of artery of the extremities; T82.856A Stenosis of peripheral vascular stent, initial encounter; I25.10 Atherosclerotic heart disease of native coronary artery without angina pectoris; I65.23 Occlusion and stenosis of bilateral carotid arteries; I11.0 Hypertensive heart disease with heart failure; I50.22 Chronic systolic (congestive) heart failure; E78.2 Mixed hyperlipidemia; E11.9 Type 2 diabetes mellitus without complications; Z87.891 Personal history of nicotine dependence; Z79.82 Long term (current) use of aspirin; Z79.4 Long term (current) use of insulin; Z79.899 Other long term (current) drug therapy; Z88.0 Allergy status to penicillin; Z88.8 Allergy status to other drugs, medicaments and biological substances; Z20.822 Contact with and (suspected) exposure to COVID-19; Z82.49 Family history of ischemic heart disease and other diseases of the circulatory system
CPT/HCPCS: 85025; 80048; 36415; 85610; 82947 ×2; 85730; 71046; 36200; 75630; U0003; C1893; J2250; J3010; J7040; J1644 ×2

== ENCOUNTER 2021-12-30 14:00 | Day surgery (SDC) | payer OTHER, BC ==
--- NOTE | 2021-12-27 13:58 | RAD REPORT ---
EXAM DESCRIPTION: RAD - Chest Pa And Lat (2 Views) - 12/27/2021 1:28 pm CLINICAL HISTORY: preop COMPARISON: Chest Pa And Lat (2 Views) dated 10/18/2021; Chest Pa And Lat (2 Views) dated 04/12/2021; C hest Single View dated 06/19/2020; Chest Single View dated 04/05/2020 FINDINGS: Lines: None. Lungs: No evidence of edema or pneumonia. Pleural: No significant pleural effusions or pneumothorax. Cardiac: The heart size is within normal limits. Bones: No acute fractures. Other: IMPRESSION: No acute cardiopulmonary disease.
--- NOTE | 2021-12-30 11:58 | EKG ---
Test Date: 2021-12-27 Test Time: 13:11:09 Senior Account Manager: RYLEE MEASUREMENT RESULTS: Intervals: Rate: 78 RI: QRSD: 152 QT: 448 QTc: 510 [place]: P: RI: QRS: 96 T: -13 INTERPRETIVE STATEMENTS: sinus rhythm Right bundle branch block Anteroseptal infarct, age undetermined T wave abnormality, consider inferior ischemia Abnormal ECG Compared to ECG 08/26/2021 08:10:52 Myocardial infarct finding now present T-wave abnormality now present Possible ischemia now present Sinus rhythm no longer present First degree AV block no longer present Electronically Signed On 12-30-21 11:52:05 CDT by Sonny Menendez
[2021-12-30] MEDS ORDERED: ATROPINE SULF 1 MG/10 ML SYR IV ONE (14:07)
[2021-12-30] MEDS ORDERED: HEPARIN 10,000 UNIT/10 ML VIAL IV ONE (14:07)
[2021-12-30] MEDS ORDERED: MIDAZOLAM HCL 2 MG/2 ML INJ ONE (14:07)
[2021-12-30] MEDS ORDERED: FENTANYL CITR 100 MCG/2 ML ONE (14:07)
[2021-12-30] MEDS ORDERED: HEPA 1000U/500MLS 2,000 UNIT/1,000 ML BAG IV ONE (14:07)
[2021-12-30] MEDS ORDERED: NA CHLORIDE 0.9% 500 ML ONE (14:21)
[2021-12-30 16:50] VITALS: BP 177/88; O2SAT 94
--- NOTE | 2021-12-30 19:25 | OP ---
Date of Procedure: 12/30/2021 Surgeon: JORGE ROSE Procedure Performed: IVC filter placement using Option ELITE device. Indication: DVT with multiple GI bleeds on anticoagulant. Access: Right IJ 7-Cypriot closed with manual pressure. Complications: None. Anesthesia: Total sedation time was 15 minutes. Bleeding: Less than 10 mL. Description Of Procedure: After risks, benefits, and alternatives were explained, the patient agreed to procedure and signed informed consent. The patient was brought into the cardiac catheterization laboratory, prepped and draped in usual sterile fashion. We used fentanyl and Versed in incremental doses to achieve adequate moderate sedation. Then, I accessed right IJ vein using ultrasound guidanc e and micropuncture kit, placed 7-Cypriot [place] sheath. Then, I took a J-wire into the distal IVC to the bifurcation area and over the wire, the IVC filter delivery system was advanced and using land nuñez of T2 and renal veins, the device was positioned and deployed in position after doing a venogra m and after the deployment, venogram showed satisfactory position. I then removed the delivery syste m and the sheath, and hemostasis was achieved with manual pressure. Conclusion: Successful IVC filter placement. Plan: Discharge home once criteria are met. SR/MODL Voice ID: [id number] Report ID: [id number]
== END 2021-12-30 16:54 | disposition home or self-care (01) ==
LOC: CCL 14:00
PROVIDERS: ATTEND Internal Medicine
DX: I82.409 Acute embolism and thrombosis of unspecified deep veins of unspecified lower extremity (principal); K92.2 Gastrointestinal hemorrhage, unspecified; I25.10 Atherosclerotic heart disease of native coronary artery without angina pectoris; I11.0 Hypertensive heart disease with heart failure; I50.22 Chronic systolic (congestive) heart failure; I45.10 Unspecified right bundle-branch block; I65.23 Occlusion and stenosis of bilateral carotid arteries; I70.209 Unspecified atherosclerosis of native arteries of extremities, unspecified extremity; E78.5 Hyperlipidemia, unspecified; E11.9 Type 2 diabetes mellitus without complications; Z87.891 Personal history of nicotine dependence; Z79.01 Long term (current) use of anticoagulants; Z79.899 Other long term (current) drug therapy; Z88.0 Allergy status to penicillin; Z01.810 Encounter for preprocedural cardiovascular examination; Z20.822 Contact with and (suspected) exposure to COVID-19; Z82.49 Family history of ischemic heart disease and other diseases of the circulatory system
CPT/HCPCS: 93005; 82947 ×2; 71046; 37191; U0003; C1893; C1725; J2250; J3010; J7040; J1644; 36005

== ENCOUNTER 2022-08-01 09:00 | Day surgery (SDC) | payer OTHER, BC ==
--- NOTE | 2022-07-23 14:52 | EKG ---
Test Date: 2022-07-23 Test Time: 09:35:38 Gaming Pit Boss: BRITTANY MEASUREMENT RESULTS: Intervals: Rate: 80 OR: 146 QRSD: 138 QT: 438 QTc: 505 [place]: P: 106 OR: 146 QRS: 100 T: 81 INTERPRETIVE STATEMENTS: Normal sinus rhythm Nonspecific intraventricular block Possible Right ventricular hypertrophy Consider right ventricular involvement in acute inferior infarct Abnormal ECG Electronically Signed On 07-23-22 14:51:17 ASIC DESIGN ENGINEER by Nishant Pak
[~2022-08-01 09:00] MED LIST changes: +AMPICILLIN SODIUM 2 GM/VIAL VIAL ONE; -HEPA 1000U/500MLS 0 UNIT/0 ML BAG IV ONE; -HEPA 1000U/500MLS 1,000 UNIT/500 ML BAG IV ONE; -LIDOCAINE 1% 20 ML MDV ONE; +NA CHLORIDE 0.9% 1,000 ML ONE
[2022-08-01] MEDS ORDERED: NA CHLORIDE 0.9% 1,000 ML ONE (09:11)
[2022-08-01] MEDS ORDERED: CEFAZOLIN SODIUM 2 GM/VIAL ONE (09:11)
[2022-08-01 09:15] LABS: Absolute Lymphocytes (CBC) 0.7 K/uL (0.7-4.9); Hematocrit 33.3 % (39.6-49.0); MCV 85.7 fL (80-100); MPV 8.1 fL (7.6-11.3); RBC Red Blood Cell Count 3.89 M/uL (4.33-5.43)
[2022-08-01 09:31] LABS: Potassium 3.8 mmol/L (3.5-5.1)
[2022-08-01] MEDS ORDERED: CEFTRIAXONE 1000 MG/VIAL ONE (10:41)
[2022-08-01] MEDS ORDERED: FENTANYL CITR 100 MCG/2 ML ONE (11:55)
[2022-08-01] MEDS ORDERED: MIDAZOLAM HCL 2 MG/2 ML INJ ONE (11:56)
[2022-08-01] MEDS ORDERED: propofoL 200 MG/20 ML VIAL IV ONE (11:56)
[2022-08-01] MEDS ORDERED: LIDOCAINE 2% MPF 5 ML VIAL ONE (11:56)
[2022-08-01] MEDS ORDERED: BUPIVACAINE 0.25% PF 10 ML VIAL ONE (12:00)
[2022-08-01] MEDS ORDERED: NS 0.9% VIAL 10 ML ONE (12:13)
--- NOTE | 2022-08-01 13:25 | P.OP ---
Preoperative diagnosis: RIGHT Above knee amptution osteomyelitis / infection Postoperative diagnosis: RIGHT Above knee amptution osteomyelitis / infection Primary procedure: Revision of RIGHT Above the knee amputation Anesthesia: GETA + Local Estimated blood loss: <20cc Specimen: bone, debridement tissue Findings: infected fluid collectoin, osteomyelitis, necrosis of marrow Complications: None Transferred to: Recovery Room Condition: Good
[2022-08-01] MEDS: HYDROMORPHONE HCL 1 MG/ML INJ ONE ×2 (13:44→13:49)
[2022-08-01] MEDS ORDERED: HYDROCODONE/APAP 7.5/325 MG TAB ONE (14:24)
[2022-08-01 16:40] VITALS: TEMP 97.8
[2022-08-01 16:41] VITALS: BP 146/73; O2SAT 97
--- NOTE | 2022-08-01 19:33 | OP ---
Date of Procedure: 08/01/2022 Surgeon: Sven Diaz MD, Preoperative Diagnosis: Right zruyb-oqu-vjvx amputation osteomyelitis/infection. Postoperative Diagnosis: Right qrvkr-qdn-lshf amputation osteomyelitis/infection. Procedure: Revision of the right qrtcb-tyx-aojd amputation. Anesthesia: General endotracheal plus local with 0.25% Marcaine. Estimated Blood Loss: Less than 20 cc. Specimen: Bone and debridement tissue. Findings: Infected fluid collection, osteomyelitis with necrosis of the bone marrow of the distal as pect of the femur on the right side. Complications: None. The patient was transferred to recovery room in good condition. Procedure In Detail: After informed consent was obtained, the patient was brought to the operating r oom and prepped and draped in the usual sterile fashion. After adequate anesthesia was achieved, I m ho an incision down through previous incision over the right above the amputation site. There was a n area of draining sinus tract in the midportion of this incision, which I elliptically removed this portion of tissue and sent it off for pathologic examination. I then dissected down to expose the fe mur, which obviously had infection and osteomyelitis with murky colored fluid collection in there and what appeared to be bone marrow necrosis with pale matthews appearance of the bone marrow. This was cul tured and this sent for aerobic and anaerobic speciation. At this point, I noted that the bone was n ot covered by any tissue other than the skin and this was undermined and from the bone femu r directly. There appeared to be some sutures, which remained intact with permanent sutures of an Et hibond type appearance which were drilled through the bone table and used to approximate tissues appa rently. I removed these stitches at this point and trimmed back the scar tissue from the femur using a periosteal elevator and combination electrocautery as well. After I dissected back approximately 2 cm of bone, I took the powered bone saw and cut the 2 cm distal affected bone and sent it off for p athologic examination. The marrow appeared to be pink and viable with bleeding on the new cut surfac e. I then used a rasp to bevel the edges circumferentially around the femur cut surfaces. I then ir rigated the area copiously. I undermined skin flaps from the anterior and posterior muscul ar tissue planes, which were quite firm. At this point, I was able to gain enough mobility to bring this to the midline. I then irrigated the area copiously multiple times and after the area was compl etely cleansed, hemostasis was achieved with the use of electrocautery. No major vascular vessels we re encountered. I then reapproximated the muscle of the anterior compartment and posterior compartme nt over the femur using 0 Vicryl sutures in interrupted fashion and good approximation of the tissue. At this point, I irrigated the skin and closed it with interrupted nohelia. At this point, a steri le dressing was placed over top. The patient tolerated the procedure without evidence of any complic ation and transferred to PACU in good condition. All counts were correct at the end of the case. ANILA/SHAKA Voice ID: [id number] Report ID: [id number]
== END 2022-08-01 16:30 | disposition home or self-care (01) ==
LOC: OR 09:00
PROVIDERS: ATTEND Surgery
PROC: 0Y6C0Z3 Detachment at Right Upper Leg, Low, Open Approach (ICD-10-PCS; principal; 2022-08-01 11:00)
DX: T87.43 Infection of amputation stump, right lower extremity (principal); T87.53 Necrosis of amputation stump, right lower extremity; M86.9 Osteomyelitis, unspecified; B95.8 Unspecified staphylococcus as the cause of diseases classified elsewhere; Z89.611 Acquired absence of right leg above knee; Z16.24 Resistance to multiple antibiotics; Z22.39 Carrier of other specified bacterial diseases
CPT/HCPCS: 93005; 87070; 85025; 80048; 36415; 87205; 82947 ×3; 88304; 87075; 27596; J2704; J2001; J3010; A4216; J1170; J7030 ×2; J0290; 87077; 87186; 88311; J2250

== ENCOUNTER 2024-02-23 13:12 | Inpatient (IN) | payer OTHER, BC ==
[2024-02-23 14:34] LABS: Absolute Basophils 0.1 K/uL (0-0.5); Absolute Lymphocytes (CBC) 0.3 K/uL (0.7-4.9); Absolute Monocytes 0.5 K/uL (0.1-1.3); Absolute Neutrophil 4.9 K/uL (1.8-8.0); Basophils % 0.9 % (0-1.3); Eosinophils % 0.3 % (0-4.4); Hematocrit 29.7 % (39.6-49.0); Hemoglobin 9.5 g/dL (13.6-17.9); Lymphocytes % 4.6 % (15.3-44.8); MCH 26.1 pg (27.0-35.0); MCV 81.5 fL (80-100); Monocytes % 9.5 % (3.3-12.3); Neutrophils % 84.7 % (41.7-73.7); Nucleated Red Blood Cells % 0.1 % (0-0); Platelets 156 thou/uL (152-406); RBC Red Blood Cell Count 3.64 M/uL (4.33-5.43); Red Cell Distribution Width 20.9 % (12.1-15.2)
[2024-02-23 14:41] LABS: PT Prothrombin Time 11.4 SECONDS (9.4-12.5); PTT, Activated Partial Thromb 19.3 SECONDS (24.3-36.9); Protime INR 1.02
[2024-02-23 14:51] LABS: Albumin/Globulin Ratio 0.8 (1.1-1.8); Anion Gap 10.7 mEq/L (5.0-15.0); Bilirubin Total 0.4 mg/dL (0.2-1.0); Globulin 3.7 g/dL (2.3-3.5); Potassium 4.7 mEq/L (3.5-5.1); Protein, Total 6.7 g/dL (6.4-8.2)
[2024-02-23 15:01] LABS: Band Neutrophils 1 % (0-1); Differential Total Cells Count 100; Lymphocytes 6 % (15-42); Monocytes 6 % (0-10); Segmented Neutrophils 87 % (40-80); Troponin High Sensitivity 69.9 pg/mL (<58.9)
[2024-02-23 15:02] LABS: Anisocytosis 1+; Blood Morphology Comment NOTED (NOT SEEN); Burr Cells 1+; Hypochromasia 1+; Platelet Estimate ADEQ
--- NOTE | 2024-02-23 15:22 | RAD REPORT ---
EXAM DESCRIPTION: Marcelat Single View02/23/2024 1:31 pm CLINICAL HISTORY: DYSPNEA COMPARISON: Chest Single View dated 02/07/2024; Chest Single View dated 10/19/2022; Chest Pa And Lat (2 Views) dated 12/27/2021; Chest Pa And Lat (2 Views) dated 10/18/2021 TECHNIQUE: Portable AP view of the chest. FINDINGS: Progressive central interstitial prominence. Streaky right midlung opacity may reflect ate lectasis. Blunting of both costophrenic angles, specially on the left, could be related to poor inspi ratory effort or suggest small underlying effusions. Elevation of the right hemidiaphragm again seen. No pneumothorax or other sizable effusion. The cardiomediastinal contours are unremarkable. Left ch est wall pacer in place. IMPRESSION: Central interstitial prominence which may relate to central venous congestion or mild pu lmonary edema.
--- NOTE | 2024-02-23 15:32 | EDPHYS ---
Physician Documentation [facility] Name: Keny Costa Age: 74 yrs Sex: Male : 1950 Arrival Date: 02/23/2024 Time: 13:12 Bed 19 Private MD: ED Physician Shirley Carl HPI: 02/22 13:34 This 74 yrs old Male presents to ER via EMS with complaints of weakness. sb4 13:34 correction called EMS because patient was more somnolent than usual. they checked his sb4 blood sugar and noted in to be in the 70s which is "low for him" he was discharged from the hospital about 1 week ago after pacemaker was placed. he states they changed his medications around but is not sure what exactly they did. he also states that he has been requiring supplemental oxygen since his discharge. he does endorse some dizziness and states that he has had new tremors on his arms bilaterally. he denies any chest pain or shortness of breath but does state that he feels very sleepy. Historical: - Allergies: 13:29 PENICILLINS; kc6 13:29 STATINS HMG COA REDUCTASE INHIBITORS; kc6 - PMHx: 13:29 BPH; CAD; CHF; Diabetes - NIDDM; High Cholesterol; Hypertension; Myocardial infarction; kc6 PVD; Rheumatoid Arthritis; - PSHx: 13:29 above the knee amputation; pacemaker; kc6 - Immunization history:: Adult Immunizations up to date. - Infectious Disease History:: Denies. - Social history:: Smoking status: Patient/guardian denies using tobacco, the patient reports quitting approximately 10 years ago. ROS: 13:38 Constitutional: Negative for fever, chills, and weight loss, sb4 13:38 Neuro: Positive for dizziness, tremor, weakness, 13:38 All other systems are negative, Exam: 13:38 Eyes: Extra-ocular motions intact. Periorbital areas with no swelling, redness, or sb4 edema. ENT: Mucous membranes moist. Cardiovascular: Regular rate and rhythm with a normal S1 and S2. Respiratory: Lungs have equal breath sounds bilaterally, clear to auscultation and percussion. No rales, rhonchi or wheezes noted. No increased work of breathing, no retractions or nasal flaring. Abdomen/GI: Soft, non-tender, no distension. MS/ Extremity: Pulses equal, no cyanosis. Neurovascular intact. Full, normal range of motion. 13:38 Constitutional: The patient appears awake, pale, sleepy but arousable 16:06 Skin: 4 cm circumferential ulcer left medial calf with purulence and surrounding sb4 cellulitis. Vital Signs: 13:27 BP 116 / 53; Pulse 73; Resp 20 S; Temp 97.9(O); Pulse Ox 100% on 3 lpm NC; Weight 94.35 kc6 kg (R); Height 6 ft. 0 in. (R); 14:25 BP 124 / 56; Pulse 76; Resp 16 S; Pulse Ox 100% on 3 lpm NC; kc6 15:20 BP 128 / 52; Pulse 75; Resp 19 S; Pulse Ox 96% on 3 lpm NC; kc6 16:23 BP 150 / 61; Pulse 77; Resp 16 S; Pulse Ox 100% on 3 lpm NC; kc6 13:27 Body Mass Index 28.21 (94.35 kg, 182.88 cm) kc6 MDM: 13:16 Patient medically screened. sb4 15:31 Data reviewed: vital signs, nurses notes, EMS record, correction records, lab test sb4 result(s), EKG, radiologic studies, and as a result, I will admit patient. Consideration of Admission/Observation Patient was admitted/placed on observation. Counseling: I had a detailed discussion with the patient and/or guardian regarding the historical points, exam findings, and any diagnostic results supporting the discharge/admit diagnosis, lab results, radiology results, the need for further work-up and treatment in the hospital. 02/22 13:17 Order name: Blood Culture Adult (2) sb4 02/22 13:17 Order name: CBC with Diff; Complete Time: 15:03 sb4 02/22 13:17 Order name: CMP; Complete Time: 15:02 sb4 02/22 13:17 Order name: Lactate w/ 2H reflex if indic.; Complete Time: 14:54 sb4 02/22 13:17 Order name: Protime (+inr); Complete Time: 14:44 sb4 02/22 13:17 Order name: Ptt, Activated; Complete Time: 14:44 sb4 02/22 13:17 Order name: Urinalysis w/ reflexes sb4 02/22 13:17 Order name: NT PRO-BNP; Complete Time: 15:02 sb4 02/22 13:17 Order name: Troponin HS; Complete Time: 15:02 sb4 02/22 14:13 Order name: Glucose, Ancillary Testing; Complete Time: 14:14 EDMS 02/22 14:57 Order name: Manual Differential; Complete Time: 15:03 EDMS 02/22 13:17 Order name: Chest Single View XRAY; Complete Time: 15:29 sb4 02/22 13:17 Order name: EKG; Complete Time: 13:18 sb4 02/22 13:17 Order name: Accucheck; Complete Time: 14:13 sb4 02/22 13:17 Order name: Cardiac monitoring; Complete Time: 13:31 sb4 02/22 13:17 Order name: EKG - Nurse/Tech; Complete Time: 13:40 sb4 02/22 13:17 Order name: IV Saline Lock - Large Bore; Complete Time: 13:40 sb4 02/22 13:17 Order name: Labs collected and sent; Complete Time: 14:24 sb4 02/22 13:17 Order name: O2 Per Protocol; Complete Time: 13:31 sb4 02/22 13:17 Order name: O2 Sat Monitoring; Complete Time: 13:31 sb4 02/22 13:17 Order name: Vital Signs; Complete Time: 13:31 sb4 EC:45 Rate is 74 beats/min. Rhythm is regular, Paced. NV interval is normal at 148 msec. QRS sb4 interval is normal at 168 msec. QT interval is normal at 462 msec. No Q waves. T waves are Normal. No ST changes noted. Clinical impression: No evidence of ischemia. Interpreted by me. Reviewed by me. Administered Medications: 16:23 Drug: vancoMYCIN IVPB 1.5 grams IVPB at calculated rate once Route: IVPB; Rate: kc6 calculated rate; Site: right hand; 17:28 Follow up: Response: No adverse reaction; IV Status: Completed infusion; IV Intake: kc6 250ml Disposition Summary: 02/23/24 15:31 Hospitalization Ordered Notes: Hospitalization Status: Inpatient Admission sb4 Provider: Stalin Lugo [facility] sb[facility] Condition: Fair sb4 Problem: new sb4 Symptoms: are unchanged sb4 Bed/Room Type: Standard sb4 Room Assignment: 216(02/23/24 16:42) bd Diagnosis - Acute kidney failure, unspecified sb4 - Cellulitis of left lower limb sb4 Forms: - Medication Reconciliation Form sb4 - SBAR form sb4 - Leadership Thank You Letter sb4 Signatures: Dispatcher Med[employer] EDMS Mary Gonsalez Liliane Wilkerson RN RN kc6 Germania Madrid, AUDREY PATrav sb4 Corrections: (The following items were deleted from the chart) 13:18 13:18 BLOOD CULTURE*+BA.LAB.BRZ ordered. EDMS EDMS 13:18 13:18 CBC+H.LAB.BRZ ordered. EDMS EDMS 13:18 13:18 COMPREHENSIVE METABOLIC PANEL+C.LAB.BRZ ordered. EDMS EDMS 13:18 13:18 LACTATE+C.LAB.BRZ ordered. EDMS EDMS 13:18 13:18 PROTIME (+INR)+COAG.LAB.BRZ ordered. EDMS EDMS 13:18 13:18 PTT, ACTIVATED+COAG.LAB.BRZ ordered. EDMS EDMS 13:18 13:18 Urinalysis+U.LAB.BRZ ordered. EDMS EDMS 13:18 13:18 PROBNP+C.LAB.BRZ ordered. EDMS EDMS 13:18 13:18 Troponin High Sensitivity+C.LAB.BRZ ordered. EDMS EDMS 16:06 13:38 Eyes: Extra-ocular motions intact. Periorbital areas with no swelling, redness, sb4 or edema. ENT: Mucous membranes moist. Cardiovascular: Regular rate and rhythm with a normal S1 and S2. Respiratory: Lungs have equal breath sounds bilaterally, clear to auscultation and percussion. No rales, rhonchi or wheezes noted. No increased work of breathing, no retractions or nasal flaring. Abdomen/GI: Soft, non-tender, no distension. Skin: Warm, dry with normal turgor. Normal color with no rashes, no lesions, and no evidence of cellulitis. MS/ Extremity: Pulses equal, no cyanosis. Neurovascular intact. Full, normal range of motion. sb4 16:42 15:31 sb4 bd
--- NOTE | 2024-02-23 15:32 | ER ---
Nurse's Notes [facility] [place] Name: Keny Costa Age: 74 yrs Sex: Male : 1950 Arrival Date: 02/23/2024 Time: 13:12 Bed 19 Private MD: Diagnosis: Acute kidney failure, unspecified;Cellulitis of left lower limb Presentation: 02/22 13:27 Chief complaint: EMS states: they were toned out to [facility] for low BGL in the 70's kc6 with intermittent confusion. BGL for EMS was 86. Coronavirus screen: At this time, the client does not indicate any symptoms associated with coronavirus-19. Ebola Screen: No symptoms or risks identified at this time. Initial Sepsis Screen: Does the patient meet any 2 criteria? No. Patient's initial sepsis screen is negative. Does the patient have a suspected source of infection? No. Patient's initial sepsis screen is negative. Risk Assessment: Do you want to hurt yourself or someone else? Patient reports no desire to harm self or others. Onset of symptoms was February 23, 2024. Care prior to arrival: IV initiated. 20 GA, in the right hand. 13:27 Method Of Arrival: EMS: [facility] kc6 13:27 Acuity: GEOVANY 3 kc6 Triage Assessment: 13:29 General: Appears in no apparent distress. comfortable, well groomed, well developed, kc6 Behavior is calm, cooperative, appropriate for age. Pain: Complains of pain in buttocks and left arm. EENT: No signs and/or symptoms were reported regarding the EENT system. Neuro: Level of Consciousness is awake, alert, obeys commands, Oriented to person, place, situation, Appropriate for age. Cardiovascular: Capillary refill < 3 seconds. Respiratory: Airway is patent Trachea midline Respiratory effort is even, unlabored, Respiratory pattern is regular, symmetrical. GI: No signs and/or symptoms were reported involving the gastrointestinal system. : No signs and/or symptoms were reported regarding the genitourinary system. Derm: No signs and/or symptoms reported regarding the dermatologic system. Skin is fragile, with poor turgor Skin is pink, warm \T\ dry. Wound noted buttocks and medial aspect of left calf Wound is open to the left leg with redness and purulent drainage. wound to the bottom is superficial with blanchable erythema. Musculoskeletal: No signs and/or symptoms reported regarding the musculoskeletal system. Amputation of right leg. Historical: - Allergies: 13:29 PENICILLINS; kc6 13:29 STATINS HMG COA REDUCTASE INHIBITORS; kc6 - PMHx: 13:29 BPH; CAD; CHF; Diabetes - NIDDM; High Cholesterol; Hypertension; Myocardial infarction; kc6 PVD; Rheumatoid Arthritis; - PSHx: 13:29 above the knee amputation; pacemaker; kc6 - Immunization history:: Adult Immunizations up to date. - Infectious Disease History:: Denies. - Social history:: Smoking status: Patient/guardian denies using tobacco, the patient reports quitting approximately 10 years ago. Screenin:31 [facility] ED Fall Risk Assessment (Adult) History of falling in the last 3 months, kc6 including since admission No falls in past 3 months (0 pts) Confusion or Disorientation No (0 pts) Intoxicated or Sedated No (0 pts) Impaired Gait No (0 pts) Mobility Assist Device Used No (0 pt) Altered Elimination No (0 pt) Score/Fall Risk Level 0 - 2 = Low Risk. Abuse screen: Denies threats or abuse. Denies injuries from another. Nutritional screening: No deficits noted. Tuberculosis screening: No symptoms or risk factors identified. Assessment: 13:31 Reassessment: please see triage. kc6 14:25 Reassessment: Patient appears in no apparent distress at this time. No changes from 6 previously documented assessment. Patient and/or family updated on plan of care and expected duration. Pain level reassessed. 15:20 Reassessment: Patient appears in no apparent distress at this time. No changes from kc6 previously documented assessment. Patient and/or family updated on plan of care and expected duration. Pain level reassessed. 16:22 Reassessment: Patient appears in no apparent distress at this time. No changes from kc6 previously documented assessment. Patient and/or family updated on plan of care and expected duration. Pain level reassessed. Vital Signs: 13:27 BP 116 / 53; Pulse 73; Resp 20 S; Temp 97.9(O); Pulse Ox 100% on 3 lpm NC; Weight 94.35 kc6 kg (R); Height 6 ft. 0 in. (R); 14:25 BP 124 / 56; Pulse 76; Resp 16 S; Pulse Ox 100% on 3 lpm NC; kc6 15:20 BP 128 / 52; Pulse 75; Resp 19 S; Pulse Ox 96% on 3 lpm NC; kc6 16:23 BP 150 / 61; Pulse 77; Resp 16 S; Pulse Ox 100% on 3 lpm NC; kc6 13:27 Body Mass Index 28.21 (94.35 kg, 182.88 cm) kc6 ED Course: 13:16 Patient arrived in ED. sb4 13:16 Germania Madrid PA-C is PHCP. sb4 13:16 Shirley Carl MD is Attending Physician. sb4 13:21 Liliane Elkins RN is Primary Nurse. kc6 13:28 Triage completed. kc6 13:29 Arm band placed on. kc6 13:30 Maintain EMS IV. Dressing intact. Good blood return noted. Site clean \T\ dry. Gauge \T\ teresa 6 site: 20G RHAND. Flushed with 10 mL NS IV is patent, is intact, with fluids infusing freely, with good blood return. 13:31 Patient has correct armband on for positive identification. Bed in low position. Call kc light in reach. Side rails up X2. quality assurance monitor final on. Pulse ox on. NIBP on. Warm blanket given. Pillow given. 13:33 Chest Single View XRAY In Process Unspecified. EDMS 14:24 Initial lab(s) drawn, by me, sent to lab. Missed attempt(s): 20 gauge in right kc6 antecubital area. Missed attempt(s): 22 gauge in right forearm. 15:31 Stalin Lugo is Hospitalizing Provider. sb4 15:31 dentures taken home with daughter in law. bd 16:06 CM attempted assessment, provider and primary nurse at bedside performing wound ane assessment. 16:22 Repositioned patient. Cleaned of incontinence. Linen changed. kc6 16:22 Wound care: to decubitus located on medial aspect of left calf was dressed with kasey Neville wet to dry dressing and ramirez wrap, Patient tolerated well. 16:40 CM spoke with patient's son, Wiley Costa via telephone. Wiley states Mr. Bustillo is ane currently living at [facility], in [place], [place] where he is receiving SNF services. Wiley explains is strictly in a wheelchair or bed and needs assistance to perform ADLs. No home oxygen or other DME. Wiley states there is a General POA with specific medical clauses in place. Wiley actively in the process of placing in [facility] as a long-term resident. CM confirmed with Hazel from [facility], was admitted for SNF services on 02/13/24. CM will continue to follow and coordinate care. 17:35 No provider procedures requiring assistance completed. Patient admitted, IV remains in kc6 place. Administered Medications: 16:23 Drug: vancoMYCIN IVPB 1.5 grams IVPB at calculated rate once Route: IVPB; Rate: kc6 calculated rate; Site: right hand; 17:28 Follow up: Response: No adverse reaction; IV Status: Completed infusion; IV Intake: kc6 250ml Medication: 17:36 VIS not applicable for this client. kc6 Intake: 17:28 IV: 250ml; Total: 250ml. kc6 Outcome: 15:31 Decision to Hospitalize by Provider. sb4 17:35 Admitted to Med/surg accompanied by tech, via stretcher, room 216, with oxygen, with kc6 chart, 17:35 Condition: stable 17:35 Instructed on the need for admit, 17:36 Patient left the ED. kc6 Signatures: Dispatcher [employer] EDMS Mary Gonsalez Kaitlyn, RN RN kc6 Germania Madrid PA-C PATrav sb4 Adriana Jimenez RN RN ane Corrections: (The following items were deleted from the chart) 14:25 13:29 Neuro: Level of Consciousness is awake, alert, obeys commands, Oriented to kc6 person, place, time, situation, Appropriate for age kc6 16:02 13:29 Derm: No signs and/or symptoms reported regarding the dermatologic system. Skin kc6 is intact, is healthy with good turgor, Skin is pink, warm \T\ dry. kc6
[2024-02-23] MEDS ORDERED: VANCOMYCIN 1 GM/VIAL ONE (16:05)
[2024-02-23] MEDS ORDERED: VANCOMYCIN 500 MG/VIAL ONE (16:05)
[2024-02-23] MEDS ORDERED: NA CHLORIDE 0.9% 250 ML ONE (16:06)
--- NOTE | 2024-02-23 16:42 | P.HP ---
Certification for Inpatient Patient admitted to: Inpatient With expected LOS: >2 Midnights Patient will require the following post-hospital care: None Practitioner: I am a practitioner with admitting privileges, knowledge of patient current condition, hospital course, and medical plan of care. Services: Services provided to patient in accordance with Admission requirements found in Title 42 Section 412.3 of the Code of Federal Regulations Patient History Date of Service: 02/23/24 Reason for admission: CECI, cellulitis History of Present Illness: 74-year-old male with history of chronic systolic congestive heart failure, insulin-dependent diabetes, gout, hyperlipidemia, hypertension, CAD, ventricular tachycardia status post AICD placement, BPH, previous right AKA with wound to the left lower extremity presented to the emergency department with chief complaint of weakness, malaise. He was transferred from our facility about 2 weeks ago when he was found to be in sustained ventricular tachycardia, he underwent AICD placement and was discharged to a snf facility in the [facility]. Family reports that he ever since he got there he had been very drowsy and not himself. Patient was evaluated here in the emergency department and found to have acute kidney injury, creatinine is 3.2 GFR is 19 BUN is 87 troponin 69.9, BNP 16,026 hemoglobin 9.5 hematocrit 29.7 chest x-ray shows central interstitial prominence which may relate to central venous congestion or mild pulmonary edema. He also has a wound to his left lower extremity with surrounding erythema. Patient was admitted for CECI, cellulitis. Allergies Penicillins Allergy (Severe, Verified 07/23/22 09:14) Itching/Hives/Rash Home Medications: Clopidogrel Bisulfate [Plavix*] 75 mg PO DAILY 06/19/20 Ezetimibe 10 mg PO DAILY 06/19/20 Gabapentin 600 mg PO TID 06/19/20 Aspirin [Ecotrin 81 MG] 81 mg PO DAILY 07/23/22 Atorvastatin Calcium [Lipitor*] 40 mg PO BEDTIME 07/23/22 Finasteride [Proscar*] 5 mg PO DAILY 07/23/22 Pantoprazole [Protonix Tab*] 40 mg PO DAILY 07/23/22 Allopurinol 100 mg PO DAILY 10/20/22 Carvedilol [Coreg] 3.125 mg PO BID 10/20/22 Duloxetine HCl 20 mg PO DAILY 10/20/22 Furosemide [Lasix] 40 mg PO BIDL #60 tab 10/20/22 Insulin Aspart [Novolog Flexpen] 7 units SQ AC 10/20/22 Insulin Detemir [Levemir] 30 units SQ BEDTIME 10/20/22 Potassium Chloride [K-Dur] 20 meq PO DAILY #30 tab 10/20/22 Tamsulosin [Flomax*] 0.4 mg PO BEDTIME 10/20/22 lisinopriL [Prinivil*] 20 mg PO DAILY #30 tab 10/20/22 - Past Medical/Surgical History Diabetic: Yes -: IDDM -: High Cholesterol -: HTN -: [place] -: RA -: CAD -: Chronic systolic congestive heart failure -: BPH -: PVD -: V. tach status post AICD placement -: Cancerous tumor removed from rt Kidney 4 years ago -: back surgery -: heart stents -: prostate -: AICD placement Psychosocial/ Personal History: Currently residing at [facility] - Family History Mother -: Hypertension, Diabetes, Stroke Father -: Heart disease, Lung disease, Cancer Notes: Lung Cancer - Social History Alcohol use: No CD- Drugs: No Caffeine use: No Place of Residence: Snf Review of Systems 10-point ROS is otherwise unremarkable General: Weakness, Malaise Physical Examination - Physical Exam General: Alert, In no apparent distress, Oriented x2 HEENT: Atraumatic, PERRLA, EOMI Neck: Supple, 2+ carotid pulse no bruit, No LAD, Without JVD or thyroid abnormality Respiratory: Clear to auscultation bilaterally, Normal air movement Cardiovascular: Regular rate/rhythm, Normal S1 S2 Gastrointestinal: Normal bowel sounds, No tenderness Musculoskeletal: No tenderness, Other (Right AKA) Integumentary: Erythema, Warmth, Venous stasis ulcer (Left lower extremity and surrounding erythema) Neurological: Normal speech, Normal strength at 5/5 x4 extr, Normal tone - Studies Laboratory Data (last 24 hrs) 02/23/24 02/23/24 02/23/24 14:10 14:10 14:10 WBC 5.80 Hgb 9.5 L Hct 29.7 L Plt Count 156 PT 11.4 INR 1.02 APTT 19.3 L Sodium 135 L Potassium 4.7 BUN 87 H Creatinine 3.20 H Glucose 126 H Total Bilirubin 0.4 AST 17 ALT 20 Alkaline Phosphatase 112 Assessment and Plan - Plan Assessment: Acute kidney injury Cellulitis left lower extremity/ulceration Elevated troponin history of CAD Chronic systolic congestive heart failure Recent sustained ventricular tachycardia with AICD placement History of right AKA Diabetes mellitus type 2insulin-dependent Hypertension Hyperlipidemia Plan: Acute kidney injury Will obtain renal ultrasound, nephrology consultation Continue with IV fluids overnight Await further improvement nephrology/cardiology hold Entresto Cellulitis left lower extremity/ulceration Wound present to left lower extremity, and reports dealing with this wound since 2021 but appears erythematous Continue antibioticsvancomycin blood cultures obtained in ED, lactate less than 2 No sepsis currently Elevated troponin history of CAD Chronic systolic congestive heart failure Recent sustained ventricular tachycardia with AICD placement Had AICD placement about [address] [facility] Initial troponin 69, will trend and monitor on telemetry Cardiology consultation, patient denies any chest pain, shortness of breath and EKG shows paced rhythm History of right AKA Diabetes mellitus type 2insulin-dependent ACHS Accu-Chek, sliding insulin Hypertension Hyperlipidemia Resume home medications when obtained DVT PPX: Heparin subcu Code status: Full Discharge Plan: Home Plan to discharge in: 72 Hours - Advance Directives Does patient have a Living Will: Yes Does patient have a Durable POA for Healthcare: Yes - Code Status/Comfort Care Code Status Assessed: Yes (Full code) Critical Care: No Time Spent Managing Pts Care (In Minutes): 70
[2024-02-23 18:21] VITALS: BMI 28.2
[2024-02-23] MEDS: NA CHLORIDE 0.9% 1,000 ML IV SCH (18:41)
[2024-02-23] MEDS: INSULIN REGULAR (HUMAN) 100 UNIT/ML SQ SCH (18:42)
[2024-02-23] MEDS: HYDROCODONE/APAP 5/325 MG TAB PO PRN (18:42)
[2024-02-23] MEDS: HEPARIN 5000 UNIT/ML 1 ML VIAL SQ SCH (21:37)
--- NOTE | 2024-02-23 22:13 | RAD REPORT ---
EXAM DESCRIPTION: US - Renal Ultrasound-Complete - 02/23/2024 8:54 pm CLINICAL HISTORY: arthur COMPARISON: Abdomen Exam Limited dated 11/27/2021; Chest For Pe Angio dated 10/19/2022; Abdomen Pelvi s W Contrast dated 08/26/2021 TECHNIQUE: Sonographic grayscale and color flow images of the kidneys and bladder were obtained. FINDINGS: Both kidneys are normal in size, shape, and echotexture. The right kidney measures 10.5 cm in length. No hydronephrosis, focal mass, or echogenic calculi. The left kidney measures 11.5 cm in length. No hydronephrosis, focal mass, or echogenic calculi. Prominent perinephric fluid bilaterally, nonspecific. The urinary bladder is without gross abnormality seen. IMPRESSION: No hydronephrosis or calculi. Nonspecific perinephric fluid/ edema bilaterally.
[2024-02-24] MEDS ORDERED: HOME MED 1 EA UNK (Acetaminophen With Codeine [Acetaminophen-Cod #4 Tablet] Tablet) PO PRN (06:18)
[2024-02-24 06:41] LABS: Absolute Lymphocytes (CBC) 0.3 K/uL (0.7-4.9); Absolute Monocytes 0.5 K/uL (0.1-1.3); Absolute Neutrophil 1.9 K/uL (1.8-8.0); Basophils % 1.3 % (0-1.3); Eosinophils % 0.7 % (0-4.4); Hematocrit 27.1 % (39.6-49.0); Hemoglobin 8.7 g/dL (13.6-17.9); Lymphocytes % 10.5 % (15.3-44.8); MCH 26.1 pg (27.0-35.0); MCV 81.6 fL (80-100); MPV 8.9 fL (7.6-11.3); Monocytes % 17.3 % (3.3-12.3); Neutrophils % 70.2 % (41.7-73.7); Nucleated Red Blood Cells % 0.1 % (0-0); Platelets 138 thou/uL (152-406); RBC Red Blood Cell Count 3.32 M/uL (4.33-5.43); Red Cell Distribution Width 21.6 % (12.1-15.2)
[2024-02-24 07:08] LABS: Anion Gap 13.1 mEq/L (5.0-15.0); Potassium 5.1 mEq/L (3.5-5.1); Thyroid Stimulating Hormone 0.985 uIU/mL (0.358-3.740)
[2024-02-24] MEDS: HOME MED 1 EA UNK (Mirabegron [Myrbetriq] 25 MG Tab.Er.24h) PO SCH (09:00)
[2024-02-24] MEDS ORDERED: SPIRONOLACTONE 25 MG TABLET PO SCH (09:00)
[2024-02-24] MEDS: CLOPIDOGREL 75 MG TABLET PO SCH (09:33)
[2024-02-24] MEDS: allopurinoL 100 MG TAB PO SCH (09:33)
[2024-02-24] MEDS: HYDROXYCHLOROQUINE 200MG TAB PO SCH (09:33)
[2024-02-24] MEDS: METOPROLOL XL 25 MG TAB PO SCH (09:33)
[2024-02-24] MEDS: EZETIMIBE 10 MG TAB PO SCH (09:34)
[2024-02-24] MEDS: SULFASALAZINE 500 MG E.C. TAB PO SCH (09:35)
[2024-02-24] MEDS: AMIODARONE HCL 200 MG TAB PO SCH (09:50)
--- NOTE | 2024-02-24 13:50 | P.PN ---
Date of Service: 02/24/24 Subjective: Doing much better today Cr improving ROS: 10 point ROS as noted above, otherwise negative Physical exam GEN: Alert, oriented, NAD HEENT: Normal conjunctiva, sclera anicteric CV: Regular rate and rhythm, no edema Pulm: Nonlabored respirations on room air ABD: Soft, nontender, nondistended MSK: No joint tenderness Integumentary: No rashes, LLE wound with surround erythema Neuro: Normal speech, normal affect Vitals reviewed Assessment: Acute kidney injury Cellulitis left lower extremity/ulceration Elevated troponin history of CAD Chronic systolic congestive heart failure Recent sustained ventricular tachycardia with AICD placement History of right AKA Diabetes mellitus type 2insulin-dependent Hypertension Hyperlipidemia Plan: Acute kidney injury Was recently at [facility]-chart reviewed Last creatinine at [facility] was in the 2 range Last creatinine in our facility 02/06 was 1.3 Will obtain renal ultrasound, nephrology consultation Renal function improved with gentle IV fluids Await further improvement nephrology/cardiology hold Entresto Cellulitis left lower extremity/ulceration Wound present to left lower extremity, and reports dealing with this wound since 2021 but appears erythematous Continue antibioticsvancomycin blood cultures obtained in ED, lactate less than 2 No sepsis currently Elevated troponin history of CAD/multivessel Chronic systolic congestive heart failure Recent sustained ventricular tachycardia with AICD placement Had AICD placement about 2 weeks ago at [facility] Initial troponin 69, trended up slightly but not flat around 100 Cardiology consultation, patient denies any chest pain, shortness of breath and EKG shows paced rhythm History of right AKA Diabetes mellitus type 2insulin-dependent ACHS Accu-Chek, sliding insulin History of carotid stenosis with endarterectomy Hypertension Hyperlipidemia Resume home medications when obtained DVT PPX: Heparin subcu Code status: Full Discharge Plan: Home Plan to discharge in: 72 Hours Time Spent Managing Pts Care (In Minutes): 35
--- NOTE | 2024-02-24 17:09 | P.CNS ---
Date of Consult: 02/24/24 Chief Complaint: CECI, cellulitis History of Present Illness: Patient with PMH of CHF, EF 40-45%, AICD for VT presented with generalized body ache, joint pain, dneies chest pain, no SOB, no palpitations, no syncope. Allergies Penicillins Allergy (Severe, Verified 07/23/22 09:14) Itching/Hives/Rash Home medications list reviewed: Yes Home Medications: Clopidogrel Bisulfate [Plavix*] 75 mg PO DAILY 06/19/20 Ezetimibe 10 mg PO DAILY 06/19/20 Gabapentin 600 mg PO TID 06/19/20 Atorvastatin Calcium [Lipitor*] 40 mg PO BEDTIME 07/23/22 Allopurinol 2 tab PO DAILY 10/20/22 Tamsulosin [Flomax*] 0.4 mg PO BEDTIME 10/20/22 Acetaminophen [Tylenol] 650 mg PO Q6HP PRN 02/23/24 Acetaminophen with Codeine [Acetaminophen-Cod #4 Tablet] 1 tab PO Q6H PRN 02/23/24 Amiodarone HCl [Pacerone] 400 mg PO BID 02/23/24 Insulin Regular, Human [Novolin R] 15 unit SQ AC 02/23/24 NPH, Human Insulin Isophane [Humulin N] 60 unit SQ BEDTIME 02/23/24 Sacubitril/Valsartan [Entresto 49 mg-51 mg Tablet] 1 tab PO BID 02/23/24 Spironolactone [Aldactone] 25 mg PO DAILY 02/23/24 sulfaSALAzine [Sulfasalazine] 500 mg PO DAILY 02/23/24 Furosemide [Lasix] 40 mg PO DAILY 02/24/24 Hydroxychloroquine [Plaquenil] 200 mg PO DAILY 02/24/24 Metoprolol Succinate [Toprol Xl] 100 mg PO DAILY 02/24/24 Minocycline HCl 100 mg PO DAILY 02/24/24 Mirabegron [Myrbetriq] 25 mg PO DAILY 02/24/24 Tramadol HCl [Ultram] 50 mg PO Q6HP PRN 02/24/24 - Past Medical/Surgical History Diabetic: Yes -: IDDM -: High Cholesterol -: HTN -: [place] -: RA -: CAD -: Chronic systolic congestive heart failure -: BPH -: PVD -: V. tach status post AICD placement -: Cancerous tumor removed from rt Kidney 4 years ago -: back surgery -: heart stents -: prostate -: AICD placement Psychosocial/ Personal History: Currently residing at [facility] - Family History Mother Medical History: Hypertension, Diabetes, Stroke Father Medical History: Heart disease, Lung disease, Cancer Notes: Lung Cancer - Social History Smoking Status: Unknown if ever smoked Alcohol use: No CD- Drugs: No Caffeine use: No Place of Residence: [facility] Review of Systems 10-point ROS is otherwise unremarkable Physical Examination Temp Pulse Resp BP Pulse Ox 97.0 F 75 16 118/63 100 02/24/24 12:00 02/24/24 12:00 02/24/24 12:00 02/24/24 12:00 02/24/24 12:00 General: Alert, In no apparent distress HEENT: Atraumatic, PERRLA, Mucous membr. moist/pink, EOMI, Sclerae nonicteric Neck: Supple, 2+ carotid pulse no bruit, No LAD, Without JVD or thyroid abnormality Respiratory: Clear to auscultation bilaterally, Normal air movement Cardiovascular: Regular rate/rhythm, Normal S1 S2 Gastrointestinal: Normal bowel sounds, No tenderness Musculoskeletal: No tenderness Integumentary: No rashes Neurological: Normal gait, Normal speech, Normal tone, Normal affect Lymphatics: No axilla or inguinal lymphadenopathy - Problems (1) Ventricular tachyarrhythmia Current Visit: Yes Status: Acute Plan: s/p AICD, denies any recent shocks. continue to monitor (2) CECI (acute kidney injury) Current Visit: Yes Status: Acute Plan: can be cardiorenal secondary to congestion will challenge with IV Lasix x1 (3) Congestive heart failure Current Visit: No Status: Acute Plan: Lasix 40 mg IV x 1 tonight and will check on kidney function in am Qualifiers: Heart failure chronicity: unspecified
[2024-02-24] MEDS: VANCOMYCIN 1.75 GM in NA CHLORIDE 0.9% 500 ML IVPB SCH (17:16)
[2024-02-24] MEDS: FUROSEMIDE 40 MG/4 ML VIAL IV ONE (17:22)
[2024-02-24] MEDS: TAMSULOSIN 0.4 MG SR CAP PO SCH (20:22)
[2024-02-24] MEDS: ATORVASTATIN 20 MG TAB PO SCH (20:22)
[2024-02-25 04:45] LABS: Absolute Lymphocytes (CBC) 0.4 K/uL (0.7-4.9); Absolute Monocytes 0.4 K/uL (0.1-1.3); Absolute Neutrophil 1.8 K/uL (1.8-8.0); Basophils % 1.1 % (0-1.3); Eosinophils % 0.8 % (0-4.4); Hematocrit 28.9 % (39.6-49.0); Lymphocytes % 15.8 % (15.3-44.8); MCHC 31.4 g/dL (32.0-36.0); Monocytes % 15.5 % (3.3-12.3); Neutrophils % 66.8 % (41.7-73.7); Percent Reticulocyte Count 0.87 % (0.4-2.05); Platelets 129 thou/uL (152-406); RBC Red Blood Cell Count 3.48 M/uL (4.33-5.43)
[2024-02-25 04:48] LABS: Red Cell Distribution Width 21.4 % (12.1-15.2)
[2024-02-25 05:20] LABS: Albumin 2.9 g/dL (3.4-5.0); Anion Gap 10.9 mEq/L (5.0-15.0); Ferritin 443.4 ng/mL (26-388); Phosphorus 3.6 mg/dL (2.5-4.9); Potassium 4.9 mEq/L (3.5-5.1); Uric Acid 7.8 mg/dL (3.5-7.2)
--- NOTE | 2024-02-25 08:23 | CON ---
Date of Consultation: 02/24/2024 Reason For Consultation: Elevated BUN and creatinine, fluid management. History Of Present Illness: This is a pleasant 74-year-old gentleman with significant past medical h istory of congestive heart failure, systolic dysfunction; diabetes, complicated with neuropathy and r etinopathy; gout; hyperlipidemia; hypertension; CAD, complicated with congestive heart failure, statu s post ICD; PAD, status post right [id number]-acf-hypi amputation. The patient was recently admitted to [facility] with ventricular tachycardia, status post ICD. The patient was treated, transferred to [facility]. In rehab, the patient started having weakness and fatigue with shortness of breath. For that reason, transferred to the hospital. In the hospital, found elevation in BUN and creatinine. For th at reason, we have been consulted. Reviewing the record for the patient during this hospitalization, the patient had angiogram. Had acute kidney injury with creatinine around 2 to 2.2. The patient christina s been on diuresis. The patient, as I mentioned, with the catheterization and angiogram had acute ki dney injury secondary to contrast. Past Medical History: Includes: 1.Renal cell CA, status post resection. 2.Diabetes, complicated with neuropathy. 3.CVA. 4.PAD, status post right [id number] amputation. 5.CAD, complicated with congestive heart failure, status post ICD. 6.Benign prostate hypertrophy. Past Surgical History: Includes: 1.ICD placement. 2.Cardiac cath. 3.Right xamgw-xpt-[id number] amputation. 4.Back surgery. Family History: Positive for hypertension, diabetes, and stroke. Social History: Denied smoking. Denied drinking. Denied drugs abuse. Lives in residential. Review of Systems: Head and Neck: No red eye. No ear pain. GI: No nausea. No vomiting. : No polyuria. No dysuria. No hematuria. ELECTRICAL ENGINEERING DIRECTOR: Not applicable. Respiratory: Has shortness of breath. Cardiovascular: Has leg swelling. Endocrine: No polydipsia. Skin: No rash. Neuro: Has neuropathy. Musculoskeletal: Has low back pain. Physical Examination: General: When I saw the patient, the patient is lying in bed. Vital Signs: Blood pressure of 114/49, pulse of 64. Chest: Crackles, bilateral. Heart: S1, S2. Systolic murmur. Abdomen: Soft, nontender. Extremities: Plus edema. Right jwwbw-fgs-noyp amputation. Neuro: Alert. No focality. Laboratory Data: WBC 2.8, hemoglobin 8.7. Sodium 139, potassium 5.1, bicarb 25, BUN 63, creatinine 2.5; upon admission, it was 3.2. GFR of 25. Calcium 8.9. TSH 0.9. Renal ultrasound, 10.5/11.5. N o hydronephrosis. Assessment And Plan: 1.Acute kidney injury secondary to cardiorenal, over volume. I am going to continue diuresing the p atient, and we will follow up. 2.Congestive heart failure with exacerbation. We will continue diuresing as above. 3.Hyperkalemia, marginal. No need for treatment. We will follow up after diuresis. 4.Chronic kidney disease secondary to hypertension, nephrosclerosis, cardiorenal, status post acute kidney injury secondary to contrast-induced nephropathy with cardiorenal syndrome. Currently over vo lume with acute kidney injury as above. We will continue diuresis, and we will follow up the patient. We will send for basic workup. ANTHONY/SHAKA Voice ID: [id number] Report ID: [id number]
[2024-02-25] MEDS: DOCUSATE NA 100 MG CAP PO SCH (09:09)
[2024-02-25] MEDS: FUROSEMIDE 40 MG/4 ML VIAL IV SCH (09:09)
[2024-02-25] MEDS: TRAMADOL HCL 50 MG TAB PO PRN (09:18)
--- NOTE | 2024-02-25 10:09 | P.PN ---
Date of Service: 02/25/24 Subjective: Doing much better today Cr improving slowly Pt consult placed ROS: 10 point ROS as noted above, otherwise negative Physical exam GEN: Alert, oriented, NAD HEENT: Normal conjunctiva, sclera anicteric CV: Regular rate and rhythm, no edema Pulm: Nonlabored respirations on room air ABD: Soft, nontender, nondistended MSK: No joint tenderness, right AKA Integumentary: No rashes, LLE wound with surround erythema Neuro: Normal speech, normal affect Vitals reviewed Assessment: Acute kidney injury Cellulitis left lower extremity/ulceration Elevated troponin history of CAD Chronic systolic congestive heart failure Recent sustained ventricular tachycardia with AICD placement History of right AKA Diabetes mellitus type 2insulin-dependent Hypertension Hyperlipidemia Plan: Acute kidney injury Was recently at [facility]-chart reviewed Last creatinine at [facility] was in the 2 range Last creatinine in our facility 02/06 was 1.3 Will obtain renal ultrasound, nephrology consultation Renal function improved now after IV lasix Continue IV lasix hold Entresto Cellulitis left lower extremity/ulceration Wound present to left lower extremity, and reports dealing with this wound since 2021 but appears erythematous Continue antibioticsvancomycin blood cultures obtained in ED, lactate less than 2 No sepsis currently Wound healing team consulted, recommendations in place Elevated troponin history of CAD/multivessel Chronic systolic congestive heart failure Recent sustained ventricular tachycardia with AICD placement Had AICD placement about 2 weeks ago at [facility] Initial troponin 69, trended up slightly but not flat around 100 Cardiology consultation, patient denies any chest pain, shortness of breath and EKG shows paced rhythm History of right AKA Diabetes mellitus type 2insulin-dependent ACHS Accu-Chek, sliding insulin History of carotid stenosis with endarterectomy Hypertension Hyperlipidemia Resume home medications when obtained DVT PPX: Heparin subcu Code status: Full Discharge Plan: Home Plan to discharge in: 48-72 hours Time Spent Managing Pts Care (In Minutes): 35
--- NOTE | 2024-02-25 12:04 | P.PN ---
Subjective Date of Service: 02/25/24 Chief Complaint: CECI, cellulitis Subjective: No new changes, No C/O voiced, Tolerating diet, Ambulating, Improving Review of Systems 10-point ROS is otherwise unremarkable Physical Examination - Vital Signs Temperature: 98.2 F Blood Pressure: 119/48 Pulse: 59 Respirations: 18 Pulse Ox (%): 92 - Physical Exam General: Alert, In no apparent distress HEENT: Atraumatic, PERRLA, EOMI Neck: Supple, JVD not distended Respiratory: Clear to auscultation bilaterally, Normal air movement Cardiovascular: Regular rate/rhythm, Normal S1 S2 Gastrointestinal: Normal bowel sounds, No tenderness Musculoskeletal: No tenderness Integumentary: No rashes Neurological: Normal speech, Normal tone, Normal affect Lymphatics: No axilla or inguinal lymphadenopathy - Studies Medications List Reviewed: Yes Assessment And Plan - Current Problems (Diagnosis) (1) Ventricular tachyarrhythmia Current Visit: Yes Status: Acute Plan: s/p AICD, denies any recent shocks. continue to monitor (2) CCEI (acute kidney injury) Current Visit: Yes Status: Acute Plan: can be cardiorenal secondary to congestion IV diuresis (3) Congestive heart failure Current Visit: No Status: Acute Plan: Lasix 40 mg IV BID Monitor input and output and electrolytes continue Metoprolol XL 100 mg daily continue amiodarone Qualifiers: Heart failure chronicity: unspecified
--- NOTE | 2024-02-25 13:24 | ECHO ---
HEIGHT: 6 ft 0 in WEIGHT: 208 lb 0 oz DATE OF STUDY: 02/25/[address]: Meet Son NP 2-DIMENSIONAL: YES M.MODE: YES DOPPLER: YES COLOR FLOW: YES TDS: PORTABLE: YES DEFINITY: BUBBLE STUDY: DIAGNOSIS: CONGESTIVE HEART FAILURE/ ELEVATED BNP CARDIAC HISTORY: CATHERIZATION: YES SURGERY: PROSTHETIC VALVE: PACEMAKER: YES MEASUREMENTS (cm) DIASTOLIC (NORMALS) SYSTOLIC (NORMALS) IVSd 1.2 (0.6-1.2) LA Diam 4.6 (1.9-4.0) LVEF 35-40% LVIDd 5.3 (3.5-5.7) LVIDs 4.2 (2.0-3.5) %FS 19% LVPWd 1.2 (0.6-1.2) Ao Diam 2.7 (2.0-3.7) 2 DIMENSIONAL ASSESSMENT: RIGHT ATRIUM: NORMAL LEFT ATRIUM: MILD DILATED RIGHT VENTRICLE: NORMAL LEFT VENTRICLE: MODERATE DILATED TRICUSPID VALVE: TRACE TRICUSPID REGURGITATION MITRAL VALVE: MILD MITRAL REGURGITATION PULMONIC VALVE: NORMAL AORTIC VALVE: MODERATE AORTIC STENOSIS PERICARDIAL EFFUSION: NONE AORTIC ROOT: LEFT VENTRICULAR WALL MOTION: MODERATE GLOBAL HYPOKINESIS DOPPLER/COLOR FLOW: GRADE II DIASTOLIC DYSFUNCTION COMMENTS: 1. MODERATE DILATED LEFT VENTRICULAR CAVITY 2. MODERATE REDUCED LEFT VENTRICULAR SYSTOLIC FUNCTION, EJECTION FRACTION 35-40%, MODERATE GLOBAL HYPOKINESIS 3. GRADE II DIASTOLIC DYSFUNCTION 4. MODERATE PULMONARY HYPERTENSION (RIGHT VENTRICULAR SYSTOLIC PRESSURE 55-60 mmHg) 5. ELEVATED FILLING PRESSURE (RIGHT ATRIUM GREATER THAN 70 mmHg) TECHNOLOGIST: CRISTINA REES [facility]
[2024-02-25] MEDS: SOD FERRIC GLUC COMPLX/SUCROSE 250 MG in NA CHLORIDE 0.9% 250 ML IV SCH (13:44)
--- NOTE | 2024-02-25 16:25 | EKG ---
Test Date: 2024-02-23 Test Time: 13:36:38 Bundler: JANNET MEASUREMENT RESULTS: Intervals: Rate: 74 MO: 148 QRSD: 168 QT: 462 QTc: 512 Park: P: 238 MO: 148 QRS: 103 T: -15 INTERPRETIVE STATEMENTS: Unusual P axis, possible ectopic atrial rhythm Right bundle branch block Abnormal ECG Compared to ECG 02/08/2024 00:58:13 Wide-QRS tachycardia no longer present Myocardial infarct finding no longer present Electronically Signed On 02-25-24 16:24:27 CDT by Adelso Ryan
--- NOTE | 2024-02-25 18:05 | PN ---
Date of Progress Note: 02/25/2024 Subjective: The patient was admitted to the hospital with acute kidney injury secondary to prerenal, cardiorenal. The patient responded very well to diuresis. The patient is feeling better. Physical Examination: Vital Signs: Blood pressure 119/48, pulse of 59, afebrile. The patient had good urine output of 120 0. Chest: Faint rales bilateral. Heart: S1, S2. Systolic murmur. Abdomen: Soft, nontender. Extremities: Trace edema. Neurologic: Alert. No focality. Laboratory Data: Chest x-ray: Cardiomegaly with congestion. WBC 2.6, hemoglobin 9. Sodium 138; po tassium 4.9; bicarb 26; BUN 59; creatinine 2.2, trending down. GFR of 30. Calcium 9.2. Iron satura tion 7.7, ferritin 443, albumin 2.9. Serum protein electrophoresis is still pending. PC ratio is st ill pending. Current Medications: The patient is on include: 1.Vancomycin. 2.Sulfasalazine. 3.Plaquenil. 4.Amiodarone. 5.Atorvastatin. 6.Metoprolol. 7.Lasix 40 b.i.d. Assessment And Plan: 1.Acute kidney injury secondary to cardiorenal, still on the overvolume side. We will continue to d iurese the patient and we will follow up response. The patient's baseline creatinine is around 2, ge tting closer to his baseline. Given the congestive heart failure, I am going to go ahead and add spi ronolactone low dose. 2.Iron deficiency anemia. We will start the patient on IV iron. 3.Congestive heart failure with exacerbation as by Cardiology. 4.Deconditioning. Continue physical therapy, occupational therapy. 5.Pulmonary embolism. Follow up with primary. ANTHONY/SHAKA Voice ID: [id number] Report ID: [id number]
[2024-02-26 05:14] LABS: Absolute Eosinophils 0.1 K/uL (0-0.5); Absolute Lymphocytes (CBC) 0.4 K/uL (0.7-4.9); Absolute Monocytes 0.3 K/uL (0.1-1.3); Basophils % 0.9 % (0-1.3); Eosinophils % 1.9 % (0-4.4); Hematocrit 28.9 % (39.6-49.0); Hemoglobin 9.1 g/dL (13.6-17.9); Lymphocytes % 15.1 % (15.3-44.8); MCH 26.3 pg (27.0-35.0); MCHC 31.5 g/dL (32.0-36.0); MCV 83.4 fL (80-100); MPV 9.1 fL (7.6-11.3); Monocytes % 11.5 % (3.3-12.3); Neutrophils % 70.6 % (41.7-73.7); Platelets 115 thou/uL (152-406); RBC Red Blood Cell Count 3.46 M/uL (4.33-5.43)
[2024-02-26 05:17] LABS: Red Cell Distribution Width 21.7 % (12.1-15.2)
[2024-02-26 05:19] LABS: Albumin 2.7 g/dL (3.4-5.0); Anion Gap 9.8 mEq/L (5.0-15.0); Phosphorus 3.9 mg/dL (2.5-4.9); Potassium 4.8 mEq/L (3.5-5.1)
--- NOTE | 2024-02-26 08:26 | P.PN ---
Subjective Date of Service: 02/26/24 Chief Complaint: CECI, cellulitis Subjective: No new changes, No C/O voiced, Tolerating diet, Ambulating, Improving Review of Systems 10-point ROS is otherwise unremarkable Physical Examination - Vital Signs Temperature: 98 F Blood Pressure: 120/51 Pulse: 54 Respirations: 14 Pulse Ox (%): 91 - Physical Exam General: Alert, In no apparent distress HEENT: Atraumatic, PERRLA, EOMI Neck: Supple, JVD not distended Respiratory: Clear to auscultation bilaterally, Normal air movement Cardiovascular: Regular rate/rhythm, Normal S1 S2 Gastrointestinal: Normal bowel sounds, No tenderness Musculoskeletal: No tenderness Integumentary: No rashes Neurological: Normal speech, Normal tone, Normal affect Lymphatics: No axilla or inguinal lymphadenopathy - Studies Medications List Reviewed: Yes Assessment And Plan - Current Problems (Diagnosis) (1) Ventricular tachyarrhythmia Current Visit: Yes Status: Acute Plan: s/p AICD, denies any recent shocks. continue amiodarone and toprol continue to monitor (2) CECI (acute kidney injury) Current Visit: Yes Status: Acute Plan: can be cardiorenal secondary to congestion IV diuresis (3) Congestive heart failure Current Visit: No Status: Acute Plan: Lasix 40 mg IV BID Monitor input and output and electrolytes continue Metoprolol XL 100 mg daily continue amiodarone Qualifiers: Heart failure chronicity: unspecified
[2024-02-26] MEDS: SPIRONOLACTONE 25 MG TABLET PO SCH (08:50)
--- NOTE | 2024-02-26 10:11 | P.PN ---
Date of Service: 02/26/24 Subjective: Doing well Cr improving slowly Pt working with pt ROS: 10 point ROS as noted above, otherwise negative Physical exam GEN: Alert, oriented, NAD HEENT: Normal conjunctiva, sclera anicteric CV: Regular rate and rhythm, no edema Pulm: Nonlabored respirations on room air ABD: Soft, nontender, nondistended MSK: No joint tenderness, right AKA Integumentary: No rashes, LLE wound with surround erythema Neuro: Normal speech, normal affect Vitals reviewed Assessment: Acute kidney injury Cellulitis left lower extremity/ulceration Elevated troponin history of CAD Chronic systolic congestive heart failure Recent sustained ventricular tachycardia with AICD placement History of right AKA Diabetes mellitus type 2insulin-dependent Hypertension Hyperlipidemia Plan: Acute kidney injury Was recently at [facility]-chart reviewed Last creatinine at [facility] was in the 2 range Last creatinine in our facility 02/06 was 1.3 Nephrology reports baseline cr~ 2 Will obtain renal ultrasound, nephrology consultation Renal function improved now after IV lasix Continue IV lasix another day hold Entresto Cellulitis left lower extremity/ulceration Wound present to left lower extremity, and reports dealing with this wound since 2021 but appears erythematous Continue antibioticsvancomycin blood cultures obtained in ED-no growth in 24 hours, lactate less than 2 No sepsis currently Wound healing team consulted, recommendations in place Elevated troponin history of CAD/multivessel Chronic systolic congestive heart failure Recent sustained ventricular tachycardia with AICD placement Had AICD placement about 2 weeks ago at [facility] Initial troponin 69, trended up slightly but not flat around 100 Cardiology consultation, patient denies any chest pain, shortness of breath and EKG shows paced rhythm History of right AKA Diabetes mellitus type 2insulin-dependent ACHS Accu-Chek, sliding insulin History of carotid stenosis with endarterectomy Hypertension Hyperlipidemia Resume home medications when obtained DVT PPX: Heparin subcu Code status: Full Discharge Plan: Home Plan to discharge in: 24 hours Time Spent Managing Pts Care (In Minutes): 35
[2024-02-26] MEDS ORDERED: VANCOMYCIN 1.75 GM in NA CHLORIDE 0.9% 500 ML IVPB SCH (18:00)
[2024-02-26] MEDS: DOXYCYCLINE 100 MG CAP PO SCH (20:59)
[2024-02-26] MEDS: MEDIHONEY 44 ML TOPICAL TUBE TOP SCH (21:06)
--- NOTE | 2024-02-27 00:24 | PN ---
Date of Progress Note: 02/26/2024 Chief Complaint: Acute kidney injury. History Of Present Illness: The patient has cardiorenal syndrome and he presented to the hospital wi th shortness of breath. He is feeling better and is responding to diuretic. Review of Systems: Denies chest pain, palpitations. Physical Examination: Lungs: Crackles at bases bilaterally present. Heart: S1, S2. 2/6 systolic murmur at left lower sternal border. Abdomen: Soft, nontender. Extremities: Slight edema. Laboratory Data: Sodium 138, potassium 4.9, bicarbonate 26, creatinine level 2.2, BUN 59, calcium 9. 2. Impression And Plan: 1.Acute kidney injury secondary to cardiorenal syndrome. The patient has fluid overload. Continue diuretic therapy. Monitor electrolytes closely. The patient has acute on chronic kidney injury. Av oid nephrotoxic medication and avoid contrast exposure. The patient is currently on spironolactone f or congestive heart failure and diuretic effect. Monitor potassium level. 2.Iron-deficiency anemia, the patient is on IV iron. 3.Congestive heart failure with exacerbation. Cardiology was consulted for cardiac workup. 4.Deconditioning. The patient will advance with physical therapy. 5.Pulmonary emboli, follow up by primary team. ROSALVA/SHAKA Voice ID: [id number] Report ID: [id number]
[2024-02-27 06:29] LABS: Absolute Lymphocytes (CBC) 0.3 K/uL (0.7-4.9); Absolute Monocytes 0.3 K/uL (0.1-1.3); Hematocrit 31.8 % (39.6-49.0); MCH 26.1 pg (27.0-35.0); MCHC 31.5 g/dL (32.0-36.0); MCV 82.9 fL (80-100); MPV 8.7 fL (7.6-11.3); Monocytes % 10.4 % (3.3-12.3); Neutrophils % 76.6 % (41.7-73.7); Nucleated Red Blood Cells % 0.1 % (0-0); Platelets 129 thou/uL (152-406); RBC Red Blood Cell Count 3.83 M/uL (4.33-5.43)
[2024-02-27 06:44] LABS: Albumin 2.8 g/dL (3.4-5.0); Anion Gap 10.7 mEq/L (5.0-15.0); Phosphorus 3.5 mg/dL (2.5-4.9); Potassium 4.7 mEq/L (3.5-5.1)
--- NOTE | 2024-02-27 08:36 | RAD REPORT ---
EXAM DESCRIPTION: CT - Head Brain Wo Cont - 02/27/2024 8:26 am CLINICAL HISTORY: Confusion COMPARISON: No comparisons TECHNIQUE: All CT scans are performed using dose optimization technique as appropriate and may inclu de automated exposure control or mA/KV adjustment according to patient size. FINDINGS: No intracranial hemorrhage, hydrocephalus or extra-axial fluid collection.No areas of brai n edema or evidence of midline shift. Remote appearing left occipital lobe infarct. Mild circumferential thickened maxillary sinuses and ethmoid air cells. The calvarium is intact. IMPRESSION: No acute intracranial abnormality. 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
[2024-02-27 08:54] LABS: Anisocytosis 2+; Blood Morphology Comment NOTED (NOT SEEN); Platelet Estimate ADEQ; Poikilocytosis 1+; White Blood Cell Scan OK (OK)
[2024-02-27 08:55] LABS: Burr Cells 1+
[2024-02-27 10:43] VITALS: O2SAT 93
[2024-02-27 10:51] LABS: Blood O2 Saturation 31.7 % (92-98.5)
[2024-02-27 10:52] LABS: Arterial Blood Carboxyhemoglob 0.9 % (0-1.5); Blood Gas Oxyhemoglobin 31.1 % (94-97); Blood Gas THB 10.4 g/dl (12-18)
--- NOTE | 2024-02-27 11:28 | P.PN ---
Subjective Date of Service: 02/27/24 Chief Complaint: CECI, cellulitis Subjective: No new changes, No C/O voiced, Tolerating diet, Ambulating, Improving Review of Systems 10-point ROS is otherwise unremarkable Physical Examination - Vital Signs Temperature: 97.5 F Blood Pressure: 161/73 Pulse: 70 Respirations: 16 Pulse Ox (%): 93 - Physical Exam General: Alert, In no apparent distress HEENT: Atraumatic, PERRLA, EOMI Neck: Supple, JVD not distended Respiratory: Clear to auscultation bilaterally, Normal air movement Cardiovascular: Regular rate/rhythm, Normal S1 S2 Gastrointestinal: Normal bowel sounds, No tenderness Musculoskeletal: No tenderness Integumentary: No rashes Neurological: Normal speech, Normal tone, Normal affect Lymphatics: No axilla or inguinal lymphadenopathy - Studies Medications List Reviewed: Yes Assessment And Plan - Current Problems (Diagnosis) (1) Ventricular tachyarrhythmia Current Visit: Yes Status: Acute Plan: s/p AICD, denies any recent shocks. continue amiodarone and toprol continue to monitor (2) CECI (acute kidney injury) Current Visit: Yes Status: Acute Plan: can be cardiorenal secondary to congestion IV diuresis (3) Congestive heart failure Current Visit: No Status: Acute Plan: Lasix 40 mg IV BID Monitor input and output and electrolytes continue Metoprolol XL 100 mg daily continue amiodarone Qualifiers: Heart failure chronicity: unspecified
--- NOTE | 2024-02-27 12:07 | P.PN ---
Subjective Date of Service: 02/27/24 Chief Complaint: CECI, cellulitis Subjective: No new changes Physical Examination - Vital Signs Temperature: 97.5 F Blood Pressure: 161/73 Pulse: 70 Respirations: 16 Pulse Ox (%): 93 - Physical Exam General: Other (chronically ill-appearing) HEENT: Atraumatic, Normocephalic Neck: Supple Respiratory: Other (symmetric chest expansion) Cardiovascular: No rubs, No murmurs Gastrointestinal: Soft and benign Musculoskeletal: No warmth Integumentary: No warmth Neurological: Other (nonfocal) Urinary: Other (no bladder distention) External genitalia: Deferred Rectal: Deferred - Studies Medications List Reviewed: Yes Assessment And Plan - Plan 1. Acute kidney injury secondary to cardiorenal syndrome. SCr decreased to 2.1. [place] by mouth fluid intake at least 2 L per day. Monitor renal panel. 2. Iron-deficiency anemia, the patient is on IV iron. Monitor CBC. 3. Congestive heart failure with exacerbation. continue Lasix and start electron same dose. [place] by mouth fluid intake. 4. Deconditioning. PT, OT. 5. Pulmonary emboli, follow up by primary team.
--- NOTE | 2024-02-27 14:55 | P.PN ---
Date of Service: 02/27/24 Subjective: Doing well Intermittent confusion CT head and abg unremarkable Family at bedside ROS: 10 point ROS as noted above, otherwise negative Physical exam GEN: Alert, oriented, NAD HEENT: Normal conjunctiva, sclera anicteric CV: Regular rate and rhythm, no edema Pulm: Nonlabored respirations on room air ABD: Soft, nontender, nondistended MSK: No joint tenderness, right AKA Integumentary: No rashes, LLE wound with surround erythema Neuro: Normal speech, normal affect Vitals reviewed Assessment: Acute kidney injury Cellulitis left lower extremity/ulceration Intermittent confusion Elevated troponin history of CAD Chronic systolic congestive heart failure Recent sustained ventricular tachycardia with AICD placement History of right AKA Diabetes mellitus type 2insulin-dependent Hypertension Hyperlipidemia Plan: Acute kidney injury Was recently at [facility]-chart reviewed Last creatinine at [facility] was in the 2 range Last creatinine in our facility 02/06 was 1.3 Nephrology reports baseline cr~ 2 Nephrology following Renal function improved now after IV lasix Continue IV lasix another day hold Entresto Intermittent confusion Improving CT head/abg unremarkable Renal function improving Cellulitis left lower extremity/ulceration Wound present to left lower extremity, and reports dealing with this wound since 2021 but appears erythematous Continue antibioticsvancomycin blood cultures obtained in ED-no growth in 24 hours, lactate less than 2 No sepsis currently Wound healing team consulted, recommendations in place Elevated troponin history of CAD/multivessel Chronic systolic congestive heart failure Recent sustained ventricular tachycardia with AICD placement Had AICD placement about [address] [facility] Initial troponin 69, trended up slightly but not flat around 100 Cardiology consultation, patient denies any chest pain, shortness of breath and EKG shows paced rhythm History of right AKA Diabetes mellitus type 2insulin-dependent ACHS Accu-Chek, sliding insulin History of carotid stenosis with endarterectomy Hypertension Hyperlipidemia Resume home medications when obtained DVT PPX: Heparin subcu Code status: Full Discharge Plan: Home Plan to discharge in: 24 hours Time Spent Managing Pts Care (In Minutes): 35
[2024-02-27] MEDS: MELATONIN 5 MG TABLET PO SCH (21:44)
[2024-02-28 04:40] LABS: Absolute Lymphocytes (CBC) 0.4 K/uL (0.7-4.9); Absolute Monocytes 0.3 K/uL (0.1-1.3); Absolute Neutrophil 1.6 K/uL (1.8-8.0); Basophils % 0.7 % (0-1.3); Eosinophils % 0.6 % (0-4.4); Hematocrit 29.3 % (39.6-49.0); Hemoglobin 9.3 g/dL (13.6-17.9); Lymphocytes % 16.5 % (15.3-44.8); MCHC 31.8 g/dL (32.0-36.0); MCV 81.9 fL (80-100); MPV 8.3 fL (7.6-11.3); Monocytes % 11.4 % (3.3-12.3); Neutrophils % 70.8 % (41.7-73.7); Nucleated Red Blood Cells % 0.2 % (0-0); Platelets 132 thou/uL (152-406); RBC Red Blood Cell Count 3.58 M/uL (4.33-5.43); Red Cell Distribution Width 21.8 % (12.1-15.2)
[2024-02-28 04:51] LABS: Albumin 2.5 g/dL (3.4-5.0); Anion Gap 11.2 mEq/L (5.0-15.0); Phosphorus 3.1 mg/dL (2.5-4.9); Potassium 4.2 mEq/L (3.5-5.1)
[2024-02-28 10:30] LABS: Abnormal Protein Band 1 REPORT; Albumin, (SPE) 3.1 g/dL (3.8-4.8); Alpha-1-Globulins 0.5 g/dL (0.2-0.3); Alpha-2-Globulins 0.8 g/dL (0.5-0.9); Beta 1 Globulin 0.4 g/dL (0.4-0.6); Gamma Globulins 0.7 g/dL (0.8-1.7); INTERPRETATION REPORT; Total Protein 5.9 g/dL (6.1-8.1)
--- NOTE | 2024-02-28 11:10 | P.PN ---
Subjective Date of Service: 02/28/24 Chief Complaint: CECI, cellulitis Subjective: No new changes Physical Examination - Vital Signs Temperature: 97.3 F Blood Pressure: 150/70 Pulse: 61 Respirations: 16 Pulse Ox (%): 97 - Physical Exam General: Other (chronically ill-appearing) HEENT: Atraumatic, Normocephalic Neck: Supple, JVD not distended Respiratory: Other (Symmetric chest expansion) Cardiovascular: No rubs, No murmurs Gastrointestinal: Soft and benign, No rebound Musculoskeletal: No clubbing Integumentary: No warmth Neurological: Other (nonfocal) Urinary: Other (no bladder distention) External genitalia: Deferred Rectal: Deferred - Studies Medications List Reviewed: Yes Assessment And Plan - Plan 1. Acute kidney injury secondary to cardiorenal syndrome. SCr decreased to 1.9. [place] by mouth fluid intake at least 2 L per day. Monitor renal panel. 2. Iron-deficiency anemia, the patient is on IV iron. Monitor CBC. 3. Congestive heart failure with exacerbation. continue Lasix and start electron same dose. [place] by mouth fluid intake. 4. Deconditioning. PT, OT. 5. Pulmonary embolism. Per primary team.
--- NOTE | 2024-02-28 11:26 | P.PN ---
Subjective Date of Service: 02/28/24 Chief Complaint: CECI, cellulitis Subjective: No new changes, No C/O voiced, Tolerating diet, Ambulating, Improving Review of Systems 10-point ROS is otherwise unremarkable Physical Examination - Vital Signs Temperature: 97.3 F Blood Pressure: 150/70 Pulse: 61 Respirations: 16 Pulse Ox (%): 97 - Physical Exam General: Alert, In no apparent distress HEENT: Atraumatic, PERRLA, EOMI Neck: Supple, JVD not distended Respiratory: Clear to auscultation bilaterally, Normal air movement Cardiovascular: Regular rate/rhythm, Normal S1 S2 Gastrointestinal: Normal bowel sounds, No tenderness Musculoskeletal: No tenderness Integumentary: No rashes Neurological: Normal speech, Normal tone, Normal affect Lymphatics: No axilla or inguinal lymphadenopathy - Studies Medications List Reviewed: Yes Assessment And Plan - Current Problems (Diagnosis) (1) Ventricular tachyarrhythmia Current Visit: Yes Status: Acute Plan: s/p AICD, denies any recent shocks. continue amiodarone and toprol continue to monitor (2) CECI (acute kidney injury) Current Visit: Yes Status: Acute Plan: can be cardiorenal secondary to congestion Kidney function is getting better after diuresis. (3) Congestive heart failure Current Visit: No Status: Acute Plan: Switch Lasix to 40 mg po BID CONTINUE TO Hold Entresto, will need to be restarted on outpatient basis, once kidney function is back to baseline Monitor input and output and electrolytes continue Metoprolol XL 100 mg daily continue amiodarone Qualifiers: Heart failure chronicity: unspecified
--- NOTE | 2024-02-28 14:38 | P.DS ---
Admission Date: 02/23/24 Discharge Date: 02/28/24 Disposition: TRANSFER TO SNF - REHAB Discharge Condition: GOOD Reason for Admission: CECI, cellulitis Consultations: CardiologyDr. Ryan NephrologyDr. Pimentel Brief History of Present Illness: 74-year-old male with history of chronic systolic congestive heart failure, insulin-dependent diabetes, gout, hyperlipidemia, hypertension, CAD, ventricular tachycardia status post AICD placement, BPH, previous right AKA with wound to the left lower extremity presented to the emergency department with chief complaint of weakness, malaise. He was transferred from our facility about 2 weeks ago when he was found to be in sustained ventricular tachycardia, he underwent AICD placement and was discharged to a correction facility in the [facility]. Family reports that he ever since he got there he had been very drowsy and not himself. Patient was evaluated here in the emergency department and found to have acute kidney injury, creatinine is 3.2 GFR is 19 BUN is 87 troponin 69.9, BNP 16,026 hemoglobin 9.5 hematocrit 29.7 chest x-ray shows central interstitial prominence which may relate to central venous congestion or mild pulmonary edema. He also has a wound to his left lower extremity with surrounding erythema. Patient was admitted for CECI, cellulitis. Hospital Course: Assessment: Acute kidney injury Cellulitis left lower extremity/ulceration Intermittent confusion Elevated troponin history of CAD Chronic systolic congestive heart failure Recent sustained ventricular tachycardia with AICD placement History of right AKA Diabetes mellitus type 2insulin-dependent Hypertension Hyperlipidemia Physical exam GEN: Alert, oriented, NAD HEENT: Normal conjunctiva, sclera anicteric CV: Regular rate and rhythm, no edema Pulm: Nonlabored respirations on room air ABD: Soft, nontender, nondistended MSK: No joint tenderness, right AKA Integumentary: No rashes, LLE wound with surround erythema Neuro: Normal speech, normal affect Patient was admitted to the hospital for acute kidney injury, cellulitis of left lower extremity, altered mental status and elevated troponin. He had recently been at an outside hospital and had a AICD implanted as well as a heart catheterization performed. He was found to have an exacerbation of his CHF with volume overload, cardiorenal syndrome leading to acute kidney injury as well as cellulitis of left lower extremity. He was treated with IV diuretics, antibiotics/vancomycin and had significant improvement in his symptoms. 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 His Lasix dose was changed from 40 mg daily to 40 mg twice daily. He was discharged from the outside hospital on amiodarone 400 mg by mouth twice daily with instructions to titrate down to a total of 400 mg daily, at discharge recommend patient takes amiodarone 200 mg by mouth twice daily. Additionally he will be prescribed doxycycline 1 mg by mouth twice daily for the cellulitis of left lower extremity. Wound healing instructions as below: Medihoney, gauze, ramirez wrap with AD ointment daily to left lower extremity wound After diuresis with IV Lasix patient's creatinine improved daily, on admission his creatinine was 3.2 and is currently 1.88. Please follow-up with your cardiology group for further management of your CHF, you may also follow-up with Dr. Ryan if you are unable to get into see them, his medication will be in your paperwork. Also follow-up with nephrologyDr. Pimentel to monitor your renal function The following medication changes were made: Amiodarone changed from 400 mg twice daily to 200 mg twice daily Lasix changed from 40 mg once daily to 40 mg twice daily Entresto discontinued given acute kidney injury Started on doxycycline for 1 week for left lower extremity cellulitis Also did very well with melatonin for sleep Vital Signs/Physical Exam: Temp Pulse Resp BP Pulse Ox 97.6 F 54 16 144/62 H 96 02/28/24 12:00 02/28/24 12:00 02/28/24 12:00 02/28/24 12:00 02/28/24 12:00 Laboratory Data at Discharge: WBC 2.30 thou/uL (4.3-10.9) L 02/28/24 04:16 Hgb 9.3 g/dL (13.6-17.9) L 02/28/24 04:16 Hct 29.3 % (39.6-49.0) L 02/28/24 04:16 Plt Count 132 thou/uL (152-406) L 02/28/24 04:16 PT 11.4 SECONDS (9.4-12.5) 02/23/24 14:10 INR 1.02 02/23/24 14:10 APTT 19.3 SECONDS (24.3-36.9) L 02/23/24 14:10 Sodium 138 mEq/L (136-145) 02/28/24 04:16 Potassium 4.2 mEq/L (3.5-5.1) 02/28/24 04:16 BUN 58 mg/dL (7-18) H 02/28/24 04:16 Creatinine 1.88 mg/dL (0.70-1.30) H 02/28/24 04:16 Glucose 162 mg/dL (74-106) H 02/28/24 04:16 Uric Acid 7.8 mg/dL (3.5-7.2) H 02/25/24 04:29 Phosphorus 3.1 mg/dL (2.5-4.9) 02/28/24 04:16 Total Bilirubin 0.4 mg/dL (0.2-1.0) 02/23/24 14:10 AST 17 U/L (15-37) 02/23/24 14:10 ALT 20 U/L (16-61) 02/23/24 14:10 Alkaline Phosphatase 112 U/L (45-117) 02/23/24 14:10 Home Medications: Clopidogrel Bisulfate [Plavix*] 75 mg PO DAILY 06/19/20 Ezetimibe 10 mg PO DAILY 06/19/20 Atorvastatin Calcium [Lipitor*] 40 mg PO BEDTIME 07/23/22 Allopurinol 2 tab PO DAILY 10/20/22 Tamsulosin [Flomax*] 0.4 mg PO BEDTIME 10/20/22 Acetaminophen [Tylenol] 650 mg PO Q6HP PRN 02/23/24 Acetaminophen with Codeine [Acetaminophen-Cod #4 Tablet] 1 tab PO Q6H PRN 02/23/24 Insulin Regular, Human [Novolin R] 15 unit SQ AC 02/23/24 NPH, Human Insulin Isophane [Humulin N] 60 unit SQ BEDTIME 02/23/24 Spironolactone [Aldactone*] 25 mg PO DAILY 02/23/24 sulfaSALAzine [Sulfasalazine] 500 mg PO DAILY 02/23/24 Hydroxychloroquine [Plaquenil*] 200 mg PO DAILY 02/24/24 Metoprolol Succinate [Toprol Xl*] 100 mg PO DAILY 02/24/24 Mirabegron [Myrbetriq] 25 mg PO DAILY 02/24/24 Tramadol HCl [Ultram] 50 mg PO Q6HP PRN 02/24/24 Amiodarone HCl [Cordarone*] 200 mg PO BID #60 tab 02/28/24 Doxycycline Hyclate 100 mg PO BID 7 Days #14 cap 02/28/24 Furosemide [Lasix] 40 mg PO BIDL #60 tab 02/28/24 Medihoney [Medihoney Woundcare Gel*] 1 appl TOP DAILY tube 02/28/24 Melatonin 5 mg PO BEDTIME 02/28/24 New Medications: Amiodarone HCl [Cordarone*] 200 mg PO BID #60 tab Doxycycline Hyclate 100 mg PO BID 7 Days #14 cap Furosemide [Lasix] 40 mg PO BIDL #60 tab Physician Discharge Instructions: Patient was admitted to the hospital for acute kidney injury, cellulitis of left lower extremity, altered mental status and elevated troponin. He had recently been at an outside hospital and had a AICD implanted as well as a heart catheterization performed. He was found to have an exacerbation of his CHF with volume overload, cardiorenal syndrome leading to acute kidney injury as well as cellulitis of left lower extremity. He was treated with IV diuretics, antibiotics/vancomycin and had significant improvement in his symptoms. 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 His Lasix dose was changed from 40 mg daily to 40 mg twice daily. He was discharged from the outside hospital on amiodarone 400 mg by mouth twice daily with instructions to titrate down to a total of 400 mg daily, at discharge recommend patient takes amiodarone 200 mg by mouth twice daily. Additionally he will be prescribed doxycycline 1 mg by mouth twice daily for the cellulitis of left lower extremity. Wound healing instructions as below: stella Maradiaga ace wrap with AD ointment daily to left lower extremity wound After diuresis with IV Lasix patient's creatinine improved daily, on admission his creatinine was 3.2 and is currently 1.88. Please follow-up with your cardiology group for further management of your CHF, you may also follow-up with Dr. Ryan if you are unable to get into see them, his medication will be in your paperwork. Also follow-up with nephrologyDrOlegario Pimentel to monitor your renal function The following medication changes were made: Amiodarone changed from 400 mg twice daily to 200 mg twice daily Lasix changed from 40 mg once daily to 40 mg twice daily Entresto discontinued given acute kidney injury Started on doxycycline for 1 week for left lower extremity cellulitis Also did very well with melatonin for sleep Diet: ADA Activity: Fall precautions Followup: Kvng Pimentel MD [ACTIVE - CAN ADMIT] - 1-2 Weeks Adelso Ryan MD [ACTIVE - CAN ADMIT] - 1-2 Weeks Gissell Gallardo FNP [Primary Care Provider] - 1-2 Weeks Time spent managing pt's care (in minutes): 35
[2024-02-29 06:56] VITALS: BP 150/70; TEMP 97.3
== END 2024-02-28 17:51 | DRG 682 ==
LOC: ER 13:12 → ERHOLD 16:23 → 2ND 16:45
PROVIDERS: ADMIT Internal Medicine; ATTEND Hospitalist
DX: N17.9 Acute kidney failure, unspecified (principal); I50.23 Acute on chronic systolic (congestive) heart failure; I47.20 Ventricular tachycardia, unspecified; L03.116 Cellulitis of left lower limb; L97.929 Non-pressure chronic ulcer of unspecified part of left lower leg with unspecified severity; I13.0 Hypertensive heart and chronic kidney disease with heart failure and stage 1 through stage 4 chronic kidney disease, or unspecified chronic kidney disease; N18.9 Chronic kidney disease, unspecified; E11.622 Type 2 diabetes mellitus with other skin ulcer; E11.51 Type 2 diabetes mellitus with diabetic peripheral angiopathy without gangrene; D63.1 Anemia in chronic kidney disease; D50.9 Iron deficiency anemia, unspecified; M10.9 Gout, unspecified; E78.00 Pure hypercholesterolemia, unspecified; E87.5 Hyperkalemia; M06.9 Rheumatoid arthritis, unspecified; N40.0 Benign prostatic hyperplasia without lower urinary tract symptoms; I25.2 Old myocardial infarction; I25.10 Atherosclerotic heart disease of native coronary artery without angina pectoris; R41.0 Disorientation, unspecified; Z88.0 Allergy status to penicillin; Z79.4 Long term (current) use of insulin; Z95.5 Presence of coronary angioplasty implant and graft; Z88.8 Allergy status to other drugs, medicaments and biological substances; Z99.81 Dependence on supplemental oxygen; Z86.73 Personal history of transient ischemic attack (TIA), and cerebral infarction without residual deficits; Z87.891 Personal history of nicotine dependence; Z89.611 Acquired absence of right leg above knee; Z95.810 Presence of automatic (implantable) cardiac defibrillator; Z79.899 Other long term (current) drug therapy
CPT/HCPCS: 36415; 70450; 71045; 76770; 80048; 80053; 80069; 80202; 82607; 82728; 82805; 82947; 83540; 83605; 83880; 84165; 84439; 84443; 84466; 84484; 84550; 85025; 85044; 85610; 85730; 87040; 93005; 93306; 96365; 97110; 97161; 97530; 99285; J1644; J1940; J2916; J7030; J7040; J7050